=== PATIENT | male | born 1960 | race Caucasian/White ===

== ENCOUNTER 2017-11-15 11:36 | Emergency (ER) | payer MEDICARE, OTHER, SELFPAY ==
[2017-11-15 11:43] VITALS: BP 128/74; PULSE 88; RESP 14; TEMP 36.8; O2SAT 96; BMI 39.5
--- NOTE | 2017-11-15 11:57 | PC.NURSE ---
Patient has injury to right second toe. Does not have any feeling. States he has his feet checked everyday and today is the first time he has seen this injury. Tip of toe is blackened with eschar and unstageable pressure sore. There is dog hair in the wound. Pt states he has no feeling in his right foot due to diabetic neuropathy.
--- NOTE | 2017-11-15 12:02 | ED.EXTPRO ---
HPI - Extremity Problem <ANI Pickard - Last Filed: 11/15/17 22:17> General Chief complaint: Extremity Problem,Nontraumatic Stated complaint: RT FOOT PROBLEMS Time Seen by Provider: 11/15/17 12:03 Source: patient Mode of arrival: ambulatory Limitations: no limitations History of Present Illness HPI Narrative: 57-year-old male with history of type 2 diabetes with peripheral neuropathy who is nonsmoker here for complaint of having discoloration to his distal right middle toe that he noticed today. He denies any known trauma to the middle toe. He says that he noticed that the darkness was there this morning. He denies any fevers or chills. No drainage from the area. He denies any pain to the area. 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 No other concerns or complaint Related Data Home Medications Medication Instructions Recorded Confirmed aspirin 81 mg PO QDAY #0 03/15/17 11/15/17 atorvastatin [Lipitor] 80 mg PO HS #0 03/15/17 11/15/17 insulin asp prt-insulin aspart 45 units SQ TIDCC #0 03/15/17 11/15/17 [Novolog Mix 70-30FlexPen U-100] insulin glargine [Lantus U-100 70 unit SQ HS #0 03/15/17 11/15/17 Insulin] omega 9-imv-fcg-fish oil [Fish Oil] 1,000 mg PO TID #0 03/15/17 11/15/17 pregabalin [Lyrica] 225 mg PO BID #0 03/15/17 11/15/17 escitalopram oxalate 20 mg PO DAILY 11/15/17 11/15/17 liraglutide [Victoza 2-Raman] 1.8 mg SUBCUT BEDTIME 11/15/17 11/15/17 Allergies Allergy/AdvReac Type Severity Reaction Status Date / Time meperidine [MEPERIDINE] Allergy Severe SHORTNESS Verified 11/15/17 11:46 OF BREATH hydroxyzine [HYDROXYZINE] Allergy Mild RASH Verified 11/15/17 11:46 Review of Systems <ANI Pickard - Last Filed: 11/15/17 22:17> Constitutional Denies chills, Denies fever(s), Denies lethargy and Denies weakness Eyes Denies change in vision, Denies eye discharge, Denies irritation and Denies loss of vision ENT Ears, Nose, Mouth, and Throat: Denies change in voice, Denies neck pain and Denies sore throat Cardiovascular Denies chest pain, Denies irregular heart rhythm, Denies lightheadedness, Denies palpitations, Denies dyspnea, Denies dyspnea on exertion and Denies orthopnea Respiratory Denies cough, Denies dyspnea, Denies dyspnea on exertion and Denies wheezing Gastrointestinal Gastrointestinal: Denies abdominal pain, Denies change in bowel habits, Denies diarrhea, Denies nausea and Denies vomiting Genitourinary Denies hematuria, Denies flank pain, Denies urinary incontinence and Denies urinary urgency Musculoskeletal Denies neck pain Comments: Dark coloration to distal right middle toe Integumentary/Breasts Denies pruritus, Denies erythema, Denies rash and Denies wounds Neurologic Denies confusion, Denies loss of vision and Denies weakness Psychiatric Denies anxiety, Denies confusion, Denies depression, Denies homicidal ideation and Denies suicidal ideation Endocrine Denies palpitations Hematologic/Lymphatic Denies easy bruising Allergic/Immunologic Denies wheezing Exam <ANI Pickard - Last Filed: 11/15/17 22:17> Initial Vital Signs Initial Vital Signs: Vital Signs Temperature 98.2 F 11/15/17 11:43 Pulse Rate 88 11/15/17 11:43 Respiratory Rate 14 11/15/17 11:43 Blood Pressure 128/74 11/15/17 11:43 Pulse Oximetry 96 11/15/17 11:43 Const General: cooperative and well developed Nutritional Appearance: well nourished Orientation: alert, awake, oriented x3 and not confused [facility] Mouth: oral mucosae normal and moist mucous membranes Eyes Conjunctivae: conjunctivae normal Sclera: sclerae normal Pupils: PERRL EOM: EOM intact bilaterally Resp Effort & Inspection: normal respiratory effort, able to speak in complete sentences, no respiratory distress and no use of accessory muscles Auscultation: clear to auscultation bilaterally, no rales, no rhonchi and no wheezes Cardio Rate: regular rate Rhythm: regular rhythm Heart Sounds: no click, no gallops, no murmurs and no rubs Pulses: normal peripheral pulses Skin General: no rashes or lesions noted, No jaundice and No petechiae Neuro General: alert, awake, oriented x3 and no focal motor deficits Speech: speech normal Extrem Other: Distal right middle toe with area of a dark purple coloration approximately 1.5 cm distal sensation is not intact not new finding. Distal pulses are intact. Distal range of motion is intact. <Cass Yepez DO - Last Filed: 11/21/17 19:57> Initial Vital Signs Initial Vital Signs: Vital Signs Temperature 98.2 F 11/15/17 11:43 Pulse Rate 88 11/15/17 11:43 Respiratory Rate 14 11/15/17 11:43 Blood Pressure 128/74 11/15/17 11:43 Pulse Oximetry 96 11/15/17 11:43 Course <ANI Pickard - Last Filed: 11/15/17 22:17> Vital Signs - 8 hr 11/15/17 11:43 Temperature 98.2 F Pulse Rate 88 Respiratory Rate 14 Blood Pressure 128/74 Pulse Oximetry 96 <Cass Yepez DO - Last Filed: 11/21/17 19:57> Vital Signs - 8 hr 11/15/17 11:43 Temperature 98.2 F Pulse Rate 88 Respiratory Rate 14 Blood Pressure 128/74 Pulse Oximetry 96 MDM - Extremity (Nontraumatic) <ANI Pickard - Last Filed: 11/15/17 22:17> MDM Narrative Medical decision making narrative: Dark purple discoloration to the distal right middle toe differential between ecchymosis secondary to unknown trauma or starting eschar with no surrounding erythema. Discussed case with wound care who recommends close follow-up. Wound dressed with bacitracin and a dressing. Patient to follow up with Podiatry on Saturday or wound care for further evaluation. Patient instructed to keep wound area clean and dry not exposing toe to bath or shower water. For any worsening symptoms return to the emergency room. Wound care recommend not starting systemic antibiotics at this time. Vital signs are normal. Patient no acute distress. Discharge Plan Departure Patient Disposition: Home Clinical Impression: Traumatic ecchymosis of toe of right foot Discharge Date/Time: 11/15/17 12:38 Interventions: ED Discharge Assessment Last Done: 11/15/17 12:37 Instructions: DI for Diabetic Neuropathy Activity Restrictions/Additional Instructions: Differential of diagnosis between bruising to the right middle toe and starting eschar. Wound is dressed with a dressing and bacitracin keep wound area clean and dry. Follow up with wound care or Podiatry on Saturday for further evaluation. Do not expose toe to a bath water or shower water. For any worsening symptoms return to the emergency room. Call Podiatry or wound Care to set up appointment on Saturday. Prescriptions: No Action atorvastatin [Lipitor] 80 MG tablet 80 mg PO HS Qty: 0 RF: 0 pregabalin [Lyrica] 225 MG capsule 225 mg PO BID Qty: 0 RF: 0 aspirin 81 MG tablet,delayed release (DR/EC) 81 mg PO QDAY Qty: 0 RF: 0 omega 7-pal-lxk-fish oil [Fish Oil] 1,000 MG capsule 1,000 mg PO TID Qty: 0 RF: 0 insulin glargine [Lantus U-100 Insulin] 100 UNIT/1 ML solution 70 unit SQ HS Qty: 0 RF: 0 insulin asp prt-insulin aspart [Novolog Mix 70-30FlexPen U-100] 100 UNIT/1 ML insulin pen 45 units SQ TIDCC Qty: 0 RF: 0 escitalopram oxalate 20 mg tablet 20 mg PO DAILY RF: 0 liraglutide [Victoza 2-Raman] 0.6 mg/0.1 mL (18 mg/3 mL) Pen Injector 1.8 mg SUBCUT BEDTIME RF: 0 Referrals: Dangelo Pond MD [Physician] - Provider,Conversion [Non-Staff] - <Cass Yepez DO - Last Filed: 11/21/17 19:57> Cosign ED Attending Cosignature Attestation: I was immediately available in the department for consultation. Documentation has been reviewed. I agree with assessment and plan. Patient does say that he checks his feet daily yesterday this was not present. The wound care has been consulted. It does not appear infectious at this time
== END 2017-11-15 12:38 | disposition home or self-care (01) ==
PROVIDERS: Emergency Provider Nurse Practitioner Family; Family Provider Podiatrist
DX: S90.31XA Contusion of right foot, initial encounter (principal)
CPT/HCPCS: 99282; 99283

== ENCOUNTER → 2017-11-18 13:18 | Outpatient (CLI) | payer MEDICARE, OTHER, SELFPAY ==
--- NOTE | 2017-11-18 | OV.WND_ITS ---
Progress Note Details Patient Name: Jamir Garcia Patient Number: [id number] PatientPatientDate: 11/18/2017 Clinician: Maura Brooks Clinician Cosigner: Mary Carmen Lance Physician / Artillery Specialist: Dangelo Pond SUBJECTIVE Chief Complaint This information was obtained from the patient Diabetic ulcer on right second toe. Allergies Demerol, Vistaril HPI This information was obtained from the patient 11/18/17. Seen by Dr. Pond. The patient returns to clinic with a new, right 2nd toe diabetic ulcer he first noted last Saturday when the callus overlying the distal toe turned 'black' and he presented to the ER. The toe was simply dressed at the time and he was not placed on antibiotics. He does not report pain or drainage from the site and has difficulty offloading the foot as he's wearing a walking cast on the left foot while he awaits surgery to 'fuse the bones'. His blood sugars are historically well controlled. 07/04/17. Seen by Dr. Pond. The patient does not report significant drainage associated with chronic left first toe diabetic ulcer to his last visit. 06/27/17. Seen by Dr. Pond. The patient was discharged from [facility] following a short stay due to chest pain and notes that the chronic left first toe diabetic ulcer may have been uncovered for the past couple of days. He does not report increased drainage from the site nor other acute issues at this time. 06/20/17. Seen by Dr. Pond. The patient does not report significant drainage associated with chronic left first toe diabetic ulcer to his last visit. 06/13/17. Seen by Dr. Pond. The patient does not report significant drainage associated with chronic left first toe diabetic ulcer to his last visit. He is also planning Kerasal to the jude-ulcer callus as recommended. 06/06/17. Seen by Dr. Pond. The patient does not report pain nor drainage associated with the chronic left first toe diabetic ulcers since his last visit. His wound culture grew a resistant coag negative staph species and is not currently on antibiotics. 05/30/17. Seen by ANI Singh. Patient reports ulcer to his left great toe x 2 months. He has been seen by Dr. Kapadia who has been helping to remove callous and advised him to apply Neosporin and keep the area covered. The patient reports a large amount of drainage from the ulcer. The patient reports significant diabetic neuropathy to bilateral lower extremities and states he has little to no sensation from the ankles down. He does wear diabetic shoes. He is on both long and short acting Insulin. Reports blood glucose levels of 120- 140s and last HA1C of 7.2. Also of note, he was recently hospitalized for pneumonia and subsequent pericarditis. He is currently on long-term antibiotics for the pericarditis but forgot his medication list at home and is unsure of the exact medication. Family History This information was obtained from the patient Cancer - Father, Diabetes - Father, Paternal Grandparents, Lung Disease - Father Social History This information was obtained from the patient Never smoker, Caffeine Use - 1 cup coffee, Children - 5, Lives in - Private, Marital Status - , Retired - [employer] Past Medical History This information was obtained from the patient Patient has a medical history of: Type II Diabetes Mellitus Pericarditis Pneumonia Surgical History This information was obtained from the patient Patient has a surgical history of: Appendectomy Bilat Total knee replacement Right ankle reconstruction Complaints and Symptoms This information was obtained from the patient Patient complains of: General Notes: I have reviewed and concur with the Review of Systems and Past Family Social History documents completed by the clinician, I have reviewed and concur with the Wound Assessment document completed by the clinician Co-Morbid Conditions: Diabetes Integumentary (Hair/Skin/Nails): Open Sore Neurological: Loss of Protective Sensation Prior Wound History: Drainage Patient denies complaints or symptoms related to: Constitutional Symptoms (General Health): Chills, Fever, Loss of Appetite Ear/Nose/Mouth/Throat: Hearing Loss / Aid Gastrointestinal (GI): Nausea / Vomiting Hematologic/Lymphatic: Bleeding / Clotting Disorders, Bleeding Tendency Prior Wound History: Bleeding, Erythema, Pain Psychiatric: Memory Loss Respiratory: Shortness of Breath General Notes: Up to date. Medications atorvastatin 80 mg tablet oral 1 1 tablet oral once daily OBJECTIVE Constitutional Vital signs reviewed and noted. Well developed. Alert. Clean appearing.. Height/ Length: 74 in (187.96 cm), Weight: 317 lbs (144.09 kgs), BMI: 40.7, Temperature: 98.0 ?F ( 36.67 ?C), Pulse: 77 bpm, Respiratory Rate: 18 breaths/min, Blood Pressure: 127/80 mmHg, Capillary Blood Glucose: 152 mg/dl, Pulse Oximetry: 95 %. Vital Signs Notes: Glucose per patient. Ears, Nose, Mouth, and Throat: No clinically significant hearing loss on informal examination. Respiratory: No respiratory distress. Even respirations and without use of accessory muscles.. Gastrointestinal (GI): Obese. Nondistended.. Musculoskeletal: Significant plantar flexion of right 2nd toe. Integumentary (Hair, Skin) No periwound erythema, warmth, or significant drainage. No periwound rashes appreciated or noted otherwise.. Refer to appropriate clinician wound documentation for this visit; right 2nd toe ulcer extends to subcut with base partially covered with pink granulation, remainder fibrin and slough. Significant amount of callus in the periulcer area. Wound #2 Second Toe is an acute Becerril Grade 1 Diabetic Ulcer and has received a status of Not Healed. Initial wound encounter measurements are 1.8cm length x 1.8cm width with no measurable depth, with an area of 3.24 sq cm . No tunneling has been noted. No sinus tract has been noted. No undermining has been noted. There is a moderate amount of sanguineous drainage noted which has a mild odor. The patient reports no wound pain due to the wound being insensate. The wound margin is attached. Wound bed has No epithelialization, Yes eschar, No slough, No granulation. The periwound skin moisture is normal. The periwound skin color is normal. The periwound skin exhibited: Edema. The periwound skin did not exhibit: Brawny Induration, Excoriation, Induration, Callus, Crepitus, Fluctuance, Friable, Rash. The temperature of the periwound skin is WNL. Periwound skin presents with s/s of infection. Confirmation Description and Treatment Plan is: Signs and Symptoms Present, CandS Pending. Local Pulse is Palpable. Neurological: Cranial nerves grossly intact with symmetric function normal by informal observation.. ASSESSMENT Active Problems ICD-10 (Encounter Diagnosis) E11.621 - Type 2 diabetes mellitus with foot ulcer (Encounter Diagnosis) L97.512 - Non-pressure chronic ulcer of other part of right foot with fat layer exposed (Encounter Diagnosis) M20.61 - Acquired deformities of toe(s), unspecified, right foot (Encounter Diagnosis) L08.9 - Local infection of the skin and subcutaneous tissue, unspecified PROCEDURES Wound #2 Wound #2 (Diabetic Ulcer) is located on the second toe. A skin/subcutaneous tissue level surgical debridement with a total area debrided of 0.06 sq cm was performed by Dangelo Pond MD. Subcutaneous was removed along with devitalized tissue: callus and exudate. The following instrument(s) were used: curette, forceps, and scissors. No anesthetic was required due to loss of sensation. A time out was conducted prior to the start of the procedure. A moderate amount of bleeding was controlled with silver nitrate. The procedure was tolerated well with a loss of sensation throughout and a loss of sensation following the procedure. Post Debridement Measurements: 0.2cm length x 0.3cm width x 0.2cm depth; with an area of 0.06 sq cm and a volume of 0.012 cubic cm; Additional Information Muscle fascia or bone removed and sent to pathology?: No PLAN Wound Orders: Wound #2 Second Toe Cleanser Cleanse Wound: - Normal saline and gauze, may use distilled water at home. May Shower. - Protect in shower with cast protector or plastic bag. Topical Treatments Antibiotic/Antimicrobial Ointment/Cream. - Gentamicin ointment. Dressings Cover and secure with: - Foam, secured with hypafix tape. Change Dressing: - Every other day. Additional Orders: Off-Loading Keep weight off: - Right 2nd toe as much as possible. Toe lift made from guajardo's wool and foam. Follow-Up Appointments Return Appointment: - - One week. Other information: If you develop fever, chills, increased pain, drainage, redness or swelling please call our office. If after hours, respond to the ER. Should you experience any significant changes in your wound(s) or have any questions regarding your home care instructions please contact the wound center @ [phone]. If after hours, contact your primary care physician or go to the hospital emergency room. Scribing Attestation I attest, as the nurse, that I scribed these orders for the physician. Laboratory: Culture Wound General Notes: Will call with culture results if any oral antibiotics are required. I've reviewed the clinician's documentation and agree with the evaluation and plan as written. In addition, the patient's ulcer demonstrates evidence of non-viable devitalized tissue which will continue to benefit from sharp debridement to help promote granulation and expedite healing. Also, I've cultured the ulcer and started treating for a superficial infection with topical gentamicin. He's also scheduled for corrective surgery of the toe in December to address the severe plantarflexion deformity. Electronic Signature(s) Signed By: Date: Dangelo Pond MD 11/18/2017 17:46:20 Entered By: Dangelo Pond on 11/18/2017 17:36:09
== END ==
PROVIDERS: Family Provider Podiatrist; PCP Nurse Practitioner Family; Visit Provider Internal Medicine
DX: E11.621 Type 2 diabetes mellitus with foot ulcer (principal); L97.512 Non-pressure chronic ulcer of other part of right foot with fat layer exposed; M20.61 Acquired deformities of toe(s), unspecified, right foot; L08.9 Local infection of the skin and subcutaneous tissue, unspecified
CPT/HCPCS: 11042; 87070; 87077; 87147; 87186; 87205

== ENCOUNTER → 2017-11-26 13:03 | Outpatient (CLI) | payer MEDICARE, OTHER, SELFPAY ==
--- NOTE | 2017-11-26 | OV.WND_ITS ---
Progress Note Details Patient Name: Jamir Garcia Patient Number: [id number] PatientPatientDate: 11/26/2017 Clinician: Maura Brooks Clinician Cosigner: Mary Carmen Lance Physician / Aerophysicist: Dangelo Pond SUBJECTIVE Chief Complaint This information was obtained from the patient Diabetic ulcer on right second toe. Allergies Demerol, Vistaril HPI This information was obtained from the patient 11/26/17.Seen by Dr. Pond. The patient does not report significant drainage associated with chronic right 2nd toe diabetic ulcer to his last visit. 11/18/17. Seen by Dr. Pond. The patient returns to clinic with a new, right 2nd toe diabetic ulcer he first noted last Saturday when the callus overlying the distal toe turned 'black' and he presented to the ER. The toe was simply dressed at the time and he was not placed on antibiotics. He does not report pain or drainage from the site and has difficulty offloading the foot as he's wearing a walking cast on the left foot while he awaits surgery to 'fuse the bones'. His blood sugars are historically well controlled. 07/04/17. Seen by Dr. Pond. The patient does not report significant drainage associated with chronic left first toe diabetic ulcer to his last visit. 06/27/17. Seen by Dr. Pond. The patient was discharged from [facility] following a short stay due to chest pain and notes that the chronic left first toe diabetic ulcer may have been uncovered for the past couple of days. He does not report increased drainage from the site nor other acute issues at this time. 06/20/17. Seen by Dr. Pond. The patient does not report significant drainage associated with chronic left first toe diabetic ulcer to his last visit. 06/13/17. Seen by Dr. Pond. The patient does not report significant drainage associated with chronic left first toe diabetic ulcer to his last visit. He is also planning Kerasal to the jude-ulcer callus as recommended. 06/06/17. Seen by Dr. Pond. The patient does not report pain nor drainage associated with the chronic left first toe diabetic ulcers since his last visit. His wound culture grew a resistant coag negative staph species and is not currently on antibiotics. 05/30/17. Seen by ANI Singh. Patient reports ulcer to his left great toe x 2 months. He has been seen by Dr. Kapadia who has been helping to remove callous and advised him to apply Neosporin and keep the area covered. The patient reports a large amount of drainage from the ulcer. The patient reports significant diabetic neuropathy to bilateral lower extremities and states he has little to no sensation from the ankles down. He does wear diabetic shoes. He is on both long and short acting Insulin. Reports blood glucose levels of 120- 140s and last HA1C of 7.2. Also of note, he was recently hospitalized for pneumonia and subsequent pericarditis. He is currently on long-term antibiotics for the pericarditis but forgot his medication list at home and is unsure of the exact medication. Past Medical History This information was obtained from the patient Patient has a medical history of: Type II Diabetes Mellitus Pericarditis Pneumonia Complaints and Symptoms This information was obtained from the patient Patient complains of: General Notes: I have reviewed and concur with the Review of Systems and Past Family Social History documents completed by the clinician, I have reviewed and concur with the Wound Assessment document completed by the clinician Co-Morbid Conditions: Diabetes Integumentary (Hair/Skin/Nails): Open Sore Neurological: Loss of Protective Sensation Prior Wound History: Drainage Patient denies complaints or symptoms related to: Constitutional Symptoms (General Health): Chills, Fever, Loss of Appetite Ear/Nose/Mouth/Throat: Hearing Loss / Aid Gastrointestinal (GI): Nausea / Vomiting Hematologic/Lymphatic: Bleeding / Clotting Disorders, Bleeding Tendency Prior Wound History: Bleeding, Erythema, Pain Psychiatric: Memory Loss Respiratory: Shortness of Breath OBJECTIVE Constitutional BP normal; Low grade fever; Alert and in no distress. Well developed. Alert. Clean appearing.. Height/Length: 74 in (187.96 cm), Weight: 317 lbs (144.09 kgs), BMI: 40.7, Temperature: 99.1 ?F (37.28 ?C), Pulse: 97 bpm, Respiratory Rate: 16 breaths/min, Blood Pressure: 128/80 mmHg, Capillary Blood Glucose: 140 mg/dl, Pulse Oximetry: 95 %. Vital Signs Notes: Glucose per patient. Ears, Nose, Mouth, and Throat: No clinically significant hearing loss on informal examination. Gastrointestinal (GI): Obese. Nondistended.. Integumentary (Hair, Skin) No periwound erythema, warmth, or significant drainage. No periwound rashes appreciated or noted otherwise.. Refer to appropriate clinician wound documentation for this visit; right foot ulcer extends to subcut with base partially covered with dry, red granulation, remainder fibrin and slough. Moderate amount of callus in the periulcer area. Wound #2 Second Toe is an acute Becerril Grade 1 Diabetic Ulcer and has received a status of Not Healed. Subsequent wound encounter measurements are 0.2cm length x 0.2cm width x 0.1cm depth, with an area of 0.04 sq cm and a volume of 0.004 cubic cm. No tunneling has been noted. No sinus tract has been noted. No undermining has been noted. There is a scant amount of serosanguineous drainage noted which has no odor. The patient reports no wound pain due to the wound being insensate. The wound margin is attached. Wound bed has No epithelialization, Yes eschar, No slough, Yes bright red, firm granulation. The periwound skin moisture is normal. The periwound skin color is normal. The periwound skin exhibited: Edema. The periwound skin did not exhibit: Brawny Induration, Excoriation, Induration, Callus, Crepitus, Fluctuance, Friable, Rash. The temperature of the periwound skin is WNL. Periwound skin does not exhibit signs or symptoms of infection. Local Pulse is Palpable. Neurological: Cranial nerves grossly intact with symmetric function normal by informal observation.. ASSESSMENT Active Problems ICD-10 (Encounter Diagnosis) E11.621 - Type 2 diabetes mellitus with foot ulcer (Encounter Diagnosis) L97.512 - Non-pressure chronic ulcer of other part of right foot with fat layer exposed PROCEDURES Wound #2 Wound #2 (Diabetic Ulcer) is located on the second toe. A skin/subcutaneous tissue level surgical debridement with a total area debrided of 0.04 sq cm was performed by Dangelo Pond MD. Subcutaneous was removed along with devitalized tissue: exudate and slough. The following instrument(s) were used: curette. No anesthetic was required due to loss of sensation. A time out was conducted prior to the start of the procedure. A moderate amount of bleeding was controlled with silver nitrate. The procedure was tolerated well with a loss of sensation throughout and a loss of sensation following the procedure. Post Debridement Measurements: 0.2cm length x 0.2cm width x 0.2cm depth; with an area of 0.04 sq cm and a volume of 0.008 cubic cm; Additional Information Muscle fascia or bone removed and sent to pathology?: No PLAN Wound Orders: Wound #2 Second Toe Cleanser Cleanse Wound: - Normal saline and gauze, may use distilled water at home. May Shower. - Protect in shower with cast protector or plastic bag. Topical Treatments Enzymatic Debriding Agent. - Hydrogel to wound base. Dressings Cover and secure with: - Telfa pad, secured with hypafix tape. May use bandaid at home. Change Dressing: - Every other day. Additional Orders: Off-Loading Keep weight off: - Right 2nd toe as much as possible. Toe lift made from guajardo's wool and foam. Follow-Up Appointments Return Appointment: - - One week. Other information: If you develop fever, chills, increased pain, drainage, redness or swelling please call our office. If after hours, respond to the ER. Should you experience any significant changes in your wound(s) or have any questions regarding your home care instructions please contact the wound center @ [phone]. If after hours, contact your primary care physician or go to the hospital emergency room. Scribing Attestation I attest, as the nurse, that I scribed these orders for the physician. General Notes: Please follow up with your manager division for basic foot/nail care. I've reviewed the clinician's documentation and agree with the evaluation and plan as written. In addition, the patient's ulcer demonstrates evidence of non-viable devitalized tissue which will continue to benefit from sharp debridement to help promote granulation and expedite healing. Electronic Signature(s) Signed By: Date: Dangelo Pond MD 11/27/2017 13:52:56 Entered By: Dangelo Pond on 11/27/2017 12:30:11
== END ==
PROVIDERS: Family Provider Podiatrist; PCP Nurse Practitioner Family; Visit Provider Internal Medicine
DX: E11.621 Type 2 diabetes mellitus with foot ulcer (principal); L97.512 Non-pressure chronic ulcer of other part of right foot with fat layer exposed
CPT/HCPCS: 11042

== ENCOUNTER 2018-04-18 03:11 | Emergency (ER) | payer MEDICARE, OTHER, SELFPAY ==
[2018-04-18 03:16] VITALS: BP 139/75; PULSE 104; RESP 20; TEMP 37.5; O2SAT 98; BMI 43.4
--- NOTE | 2018-04-18 03:19 | DI.RAD.S_ITS ---
PROCEDURE: XR KNEE RT 3V INDICATIONS: knee locked up, no trauma TECHNIQUE: 3 views of the knee were acquired. COMPARISON: None. FINDINGS: Bones: Status post right knee arthroplasty. No fractures or dislocations. No suspicious bony lesions. Soft tissues: No joint effusion. No suspicious soft tissue calcifications. IMPRESSION: No fracture. No acute osseous lesion. Status post right knee arthroplasty. Dictated by: Kate Fletcher MD, PhD on 04/18/2018 at 8:44 Approved by: Kate Fletcher MD, PhD on 04/18/2018 at 8:45
[2018-04-18] MEDS: diazePAM 10 MG/2 ML SYRINGE 5 MG IV (04:25)
[2018-04-18] MEDS: HYDROMORPHONE 1 MG INJ IV (04:25)
[2018-04-18 04:39] VITALS: BP 104/61; PULSE 100; RESP 17; O2SAT 94
--- NOTE | 2018-04-18 05:02 | ED_ITS ---
HPI - Extremity Problem General Chief complaint: Extremity Problem,Nontraumatic Stated complaint: R Knee Pain Time Seen by Provider: 04/18/18 03:43 Source: patient, EMS and old records reviewed Mode of arrival: EMS Limitations: no limitations History of Present Illness HPI Narrative: Patient is a 57-year-old male who presents with right knee spasm and locked knee. He has bilateral total knee arthroplasties. He occasionally gets his knees locked. He has previously been to [facility] few times for this. He is requesting anesthesia and Orthopedics immediately. he says this evening he went to let the dog out when it suddenly spasmed up. He did not fall on it. He was able to get himself lowered. MD Complaint: extremity pain Location: right and lower extremity Quality: other (spasm) Related Data Home Medications Medication Instructions Recorded Confirmed aspirin 81 mg PO QDAY #0 03/15/17 11/15/17 atorvastatin [Lipitor] 80 mg PO HS #0 03/15/17 11/15/17 insulin asp prt-insulin aspart 45 units SQ TIDCC #0 03/15/17 11/15/17 [Novolog Mix 70-30FlexPen U-100] insulin glargine [Lantus U-100 70 unit SQ HS #0 03/15/17 11/15/17 Insulin] omega 8-mkp-fks-fish oil [Fish Oil] 1,000 mg PO TID #0 03/15/17 11/15/17 pregabalin [Lyrica] 225 mg PO BID #0 03/15/17 11/15/17 escitalopram oxalate 20 mg PO DAILY 11/15/17 11/15/17 liraglutide [Victoza 2-Raman] 1.8 mg SUBCUT BEDTIME 11/15/17 11/15/17 Allergies Allergy/AdvReac Type Severity Reaction Status Date / Time meperidine [MEPERIDINE] Allergy Severe SHORTNESS Verified 11/15/17 11:46 OF BREATH hydroxyzine [HYDROXYZINE] Allergy Mild RASH Verified 11/15/17 11:46 Review of Systems Review of Systems ROS Unobtainable: All systems reviewed & are unremarkable except as noted in HPI and below Constitutional Denies chills, Denies fever(s), Denies lethargy and Denies weakness Cardiovascular Denies chest pain, Denies irregular heart rhythm, Denies lightheadedness, Denies palpitations, Denies dyspnea, Denies dyspnea on exertion and Denies orthopnea Respiratory Denies cough, Denies dyspnea, Denies dyspnea on exertion and Denies wheezing Gastrointestinal Gastrointestinal: Denies abdominal pain, Denies change in bowel habits, Denies diarrhea, Denies nausea and Denies vomiting Musculoskeletal Reports as per HPI Integumentary/Breasts Denies pruritus, Denies erythema, Denies rash and Denies wounds Neurologic Denies weakness Endocrine Denies palpitations Allergic/Immunologic Denies wheezing [facility] Medical History Coronary artery disease (Acute) Diabetes (Acute) Peripheral neuropathy (Acute) Surgical History History of total knee arthroplasty (Acute) Social History Smoking Status: Never smoker Social History Smoking Status: Never smoker Exam Initial Vital Signs Initial Vital Signs: Vital Signs Temperature 99.5 F 04/18/18 03:16 Pulse Rate 104 H 04/18/18 03:16 Respiratory Rate 20 04/18/18 03:16 Blood Pressure 139/75 04/18/18 03:16 Pulse Oximetry 98 04/18/18 03:16 GENERAL: overweight male appears in HEENT: Head atraumatic,EOMI, pupils reactive, CARDIOVASCULAR: peripheral pulses intact RESPIRATORY: speaks in full sentences EXTREMITIES: Normal range of motion, no clubbing or edema. Neurovascularly intact right lower extremity knee is bent. He is unable to straighten on his own. Distal pedal pulse intact able to move toes pelvis is stable. NEUROLOGICAL: Alert and oriented x4. SKIN: Warm, dry, no laceration, no petechiae, no rashes or lesions. Course Orders Ordered: ED Orders 04/18/18 03:19 XR knee RT 3V Stat Discontinued Medications Diazepam (Valium) 5 mg IV NOW ONE Stop: 04/18/18 04:04 Last Admin: 04/18/18 04:25 Dose: 5 mg Hydromorphone HCl (Dilaudid) 1 mg IV NOW ONE Stop: 04/18/18 04:04 Last Admin: 04/18/18 04:25 Dose: 1 mg Vital Signs - 8 hr 04/18/18 03:16 04/18/18 04:39 Temperature 99.5 F Pulse Rate 104 H 100 H Respiratory Rate 20 17 Blood Pressure 139/75 Blood Pressure [Left Arm] 104/61 Pulse Oximetry 98 94 MDM - Extremity (Nontraumatic) Imaging Data right knee XR: Attestation: I personally reviewed and interpreted this imaging study as follows: My impression: post surgical changes. no fracture MDM Narrative Medical decision making narrative: Patient is given small amount of pain medication Dilaudid and Valium. I easily straightened his leg with very little traction or force. Knee immobilizer placed by nursing. Discharge Plan Departure Patient Disposition: Home Clinical Impression: Locking of right knee Instructions: DI for Knee Pain Activity Restrictions/Additional Instructions: *You have been diagnosed with locked knee *What to do: may require physical therapy. Where knee brace for the next 1-2 days to help prevent locking. *Continue to take medications as directed [ *Follow up with your primary care provider in 2-3 days *Return to ER if you should have any new, worsening or concerning symptoms Prescriptions: No Action atorvastatin [Lipitor] 80 MG tablet 80 mg PO HS Qty: 0 RF: 0 pregabalin [Lyrica] 225 MG capsule 225 mg PO BID Qty: 0 RF: 0 aspirin 81 MG tablet,delayed release (DR/EC) 81 mg PO QDAY Qty: 0 RF: 0 omega 6-ilz-xet-fish oil [Fish Oil] 1,000 MG capsule 1,000 mg PO TID Qty: 0 RF: 0 insulin glargine [Lantus U-100 Insulin] 100 UNIT/1 ML solution 70 unit SQ HS Qty: 0 RF: 0 insulin asp prt-insulin aspart [Novolog Mix 70-30FlexPen U-100] 100 UNIT/1 ML insulin pen 45 units SQ TIDCC Qty: 0 RF: 0 escitalopram oxalate 20 mg tablet 20 mg PO DAILY RF: 0 liraglutide [Victoza 2-Raman] 0.6 mg/0.1 mL (18 mg/3 mL) Pen Injector 1.8 mg SUBCUT BEDTIME RF: 0 Referrals: [facility] [Provider Group] Rey Kapadia, PATRICIA [Family Provider] -
== END 2018-04-18 04:55 | disposition home or self-care (01) ==
PROVIDERS: Emergency Provider Emergency Medicine; Family Provider Podiatrist; PCP Nurse Practitioner Family
DX: M23.91 Unspecified internal derangement of right knee (principal)
CPT/HCPCS: 73562; 96374; 96375; 99283; 99284; J1170; J3360

== ENCOUNTER → 2018-04-23 08:49 | Outpatient (CLI) | payer MEDICARE, OTHER, SELFPAY | PROVIDERS: Family Provider Podiatrist; PCP Nurse Practitioner Family; Referring Provider Podiatrist; Visit Provider Family Medicine | DX: E11.621 Type 2 diabetes mellitus with foot ulcer (principal); L08.9 Local infection of the skin and subcutaneous tissue, unspecified; L97.521 Non-pressure chronic ulcer of other part of left foot limited to breakdown of skin | CPT/HCPCS: 87070; 87075; 87077; 87147; 87186; 87205; 93922; 97597; 99213 ==

== ENCOUNTER 2018-04-24 18:51 | Emergency (ER) | payer MEDICARE, OTHER, SELFPAY ==
[2018-04-24] VITALS (16 sets, daily range): BP systolic 104–185; BP diastolic 64–97; PULSE 95–114; RESP 12–20; TEMP 38–38.1; O2SAT 92–98; BMI 40.1
--- NOTE | 2018-04-24 19:32 | PC.NURSE ---
Pt states he always comes in and get IV pain meds then is able to relax his knee. aware of request for pain meds. no new orders at this time. Patient declines ice, and repositioning at this time. states if we attempt to touch it without meds he will hurt us.
--- NOTE | 2018-04-24 19:41 | ED.EXTPRO ---
HPI - Extremity Problem General Chief complaint: Extremity Problem,Nontraumatic Stated complaint: L knee unable to bend Time Seen by Provider: 04/24/18 19:25 Source: patient Mode of arrival: EMS Limitations: no limitations History of Present Illness HPI Narrative: This is a 57-year-old male who comes to the emergency department with complaint of left knee being locked. Patient states this happens intermittently. He states that he has had to have them reduced in the past. Patient states he typically has gone would be but has been here as well. Patient states last time they gave him some medications to the IV on it worked quite well. He states he just stepped weird lives taking the dog out today. He states that he had knee replacement with tendon repairs in past so they disorder get stuck. Patient does have a walking boot on the left foot which he states is from a metatarsal repair. He states this was in December and he has graduated from cast to a boot. He is denying any other injuries. Related Data Home Medications Medication Instructions Recorded Confirmed aspirin 81 mg PO QDAY #0 03/15/17 11/15/17 atorvastatin [Lipitor] 80 mg PO HS #0 03/15/17 11/15/17 insulin asp prt-insulin aspart 45 units SQ TIDCC #0 03/15/17 11/15/17 [Novolog Mix 70-30FlexPen U-100] insulin glargine [Lantus U-100 70 unit SQ HS #0 03/15/17 11/15/17 Insulin] omega 4-czd-emq-fish oil [Fish Oil] 1,000 mg PO TID #0 03/15/17 11/15/17 pregabalin [Lyrica] 225 mg PO BID #0 03/15/17 11/15/17 escitalopram oxalate 20 mg PO DAILY 11/15/17 11/15/17 liraglutide [Victoza 2-Raman] 1.8 mg SUBCUT BEDTIME 11/15/17 11/15/17 Allergies Allergy/AdvReac Type Severity Reaction Status Date / Time meperidine [MEPERIDINE] Allergy Severe SHORTNESS Verified 11/15/17 11:46 OF BREATH hydroxyzine [HYDROXYZINE] Allergy Mild RASH Verified 11/15/17 11:46 Review of Systems Review of Systems ROS Unobtainable: All systems reviewed & are unremarkable except as noted in HPI and below Constitutional Denies weakness Musculoskeletal Reports as per HPI, Reports arthralgias, Reports limited range of motion, Denies muscle weakness, Denies numbness and Denies tingling Integumentary/Breasts Denies rash Neurologic Denies numbness, Denies sensory deficit, Denies tingling, Denies paresthesias and Denies weakness ON LICENSE OF [facility] Medical History Coronary artery disease (Acute) Diabetes (Acute) Peripheral neuropathy (Acute) Surgical History History of total knee arthroplasty (Acute) Social History Smoking Status: Never smoker Social History Smoking Status: Never smoker Exam Narrative Exam Narrative: GENERAL: Alert and oriented x three, obese, well-appearing male in moderate distress. HEENT: Head normocephalic, atraumatic, EOMI, pupils reactive, face symmetric, moist mucous membranes NECK: Supple, full range of motion CARDIOVASCULAR: Regular rate and rhythm without murmurs, rubs or gallops. RESPIRATORY: Breath sounds equal bilaterally, no wheezes rales or rhonchi. ABDOMEN: Soft, nontender. Normoactive bowel sounds all 4 quadrants. No guarding or rebound, rigidity, no mass EXTREMITIES: Normal range of motion of right lower extremity the left lower extremity is held in flexion at the knee and is externally rotated. no clubbing or edema. Neurovascularly intact. cap refill less then 2 seconds. left foot is in walking boot. NEUROLOGICAL: Cranial nerves II through XII grossly intact. Moving all extremities SKIN: Warm, dry, no petechiae, no rashes or lesions. Initial Vital Signs Initial Vital Signs: Vital Signs Temperature 100.5 F H 04/24/18 19:00 Pulse Rate 101 H 04/24/18 19:00 Respiratory Rate 04/24/18 19:00 Blood Pressure 149/89 H 04/24/18 19:00 Pulse Oximetry 96 04/24/18 19:00 Procedures Procedural Sedation Patient Age: Patient is 5yrs or older Indication: fracture/dislocation reduction (knee locked) Mallampati Airway Classification: Class II Time of Last PO Intake: 12:00 (noon) Preparation: residential monitor applied, pulse oximeter, capnometry used, supplemental O2 applied, suction/airway equipment at bedside and IV secured Ketamine: IV Ketamine dose (mg): 150 ED Sedation Level: Moderate (Concious) Patient Tolerated Procedure: Well Complications: hypoventilation Interventions: Airway repositioned and Oxygen applied Additional Comments: Patient had traction applied to left knee with slow exaggeration. Patient lower extremity straightened and placed in knee immoblizer. Patient is much more comfortable at this time. Course Orders Ordered: ED Orders 04/24/18 19:41 XR knee LT 1to2V Stat Discontinued Medications Diazepam (Valium) 5 mg IV NOW ONE Stop: 04/24/18 19:42 Last Admin: 04/24/18 20:14 Dose: 5 mg Diazepam (Valium) 5 mg IV NOW ONE Stop: 04/24/18 20:47 Last Admin: 04/24/18 21:02 Dose: 5 mg Hydromorphone HCl (Dilaudid) 1 mg IV NOW ONE Stop: 04/24/18 19:42 Last Admin: 04/24/18 19:49 Dose: 1 mg Hydromorphone HCl (Dilaudid) 1 mg IV NOW ONE Stop: 04/24/18 20:26 Last Admin: 04/24/18 20:27 Dose: 1 mg Hydromorphone HCl (Dilaudid) 1 mg IV NOW ONE Stop: 04/24/18 20:47 Last Admin: 04/24/18 21:02 Dose: 1 mg Vital Signs - 8 hr 04/24/18 19:00 04/24/18 19:45 04/24/18 19:49 Temperature 100.5 F H 100.4 F H Pulse Rate 101 H 105 H Respiratory Rate 19 17 Blood Pressure 149/89 H Blood Pressure [Right Arm] 129/71 Pulse Oximetry 96 97 04/24/18 20:30 04/24/18 21:12 04/24/18 21:31 Temperature Pulse Rate 99 H 101 H 95 H Respiratory Rate 16 16 16 Blood Pressure Blood Pressure [Right Arm] 119/78 106/64 105/70 Pulse Oximetry 95 93 92 04/24/18 22:45 04/24/18 22:50 04/24/18 22:55 Temperature Pulse Rate 110 H 114 H 106 H Respiratory Rate 12 19 14 Blood Pressure Blood Pressure [Right Arm] 158/74 H 185/94 H 104/97 H Pulse Oximetry 92 97 97 04/24/18 22:57 04/24/18 23:00 04/24/18 23:05 Temperature Pulse Rate 112 H 103 H 102 H Respiratory Rate 20 15 14 Blood Pressure Blood Pressure [Right Arm] 158/87 H 145/82 H Pulse Oximetry 97 97 04/24/18 23:10 04/24/18 23:15 04/24/18 23:20 Temperature Pulse Rate 102 H 102 H 100 H Respiratory Rate 15 16 16 Blood Pressure Blood Pressure [Right Arm] 130/73 144/86 H 135/72 Pulse Oximetry 97 95 95 04/24/18 23:32 04/25/18 00:34 Temperature Pulse Rate 102 H 102 H Respiratory Rate 18 Blood Pressure Blood Pressure [Right Arm] 141/72 H 128/75 Pulse Oximetry 95 MDM - Extremity (Nontraumatic) Imaging Data knee xray: Radiologist's impression: [address] [address] XRay Report Signed Patient: Jamir Garcia KMR#: [id number] : 9Acct:[id number] Age/Sex: 57 / MDate of Service: 04/24/18 Loc: ED Accession Number: [id number] Procedure: XR knee LT 1to2V Ordering Provider: Annabel Crum D.O. PROCEDURE: XR KNEE LT 1TO2V INDICATIONS: left knee locking TECHNIQUE: 2 view(s) of the knee acquired. [facility], 04/18/2018, 3:26. FINDINGS: Patient is status post knee joint arthroplasty. Limited secondary to patient positioning. Only a crosstable lateral view with the knee in flexion and a sunrise view were acquired. Suggestion of a small joint effusion. No acute fracture. Patellar alignment appears grossly intact although evaluation limited secondary to positioning. Hardware components appear intact. No acute fractures visualized. IMPRESSION: Status post left total knee arthroplasty. Surgical hardware appears intact. Limited evaluation secondary to patient positioning with the left knee imaged in flexion. Additionally, only a crosstable lateral view and sunrise view were obtained. Suggestion of small joint effusion. No acute fracture visualized. Dictated by: Gabriel Moreland M.D. on 04/24/2018 at 21:45 Approved by: Gabriel Moreland M.D. on 04/24/2018 at 21:49 MDM Narrative Medical decision making narrative: Discussed with patient, if he had responded well to Valium and Dilaudid last time but was unsuccessful. Patient tolerated procedure well. Discharge Plan Departure Patient Disposition: Home Clinical Impression: Locking of right knee Instructions: How to Use a Knee Immobilizer Activity Restrictions/Additional Instructions: Follow up with your physician or orthopedic surgeon in the next 5-7 days. Continue to use knee brace/immobilizer for the next 3-5 days to prevent recurrence. Continue to take your home medications as prescribed. Return to the emergency department if you have any new or concerning symptoms, recurrence, new numbness, weakness or other changes. Prescriptions: No Action atorvastatin [Lipitor] 80 MG tablet 80 mg PO HS Qty: 0 RF: 0 pregabalin [Lyrica] 225 MG capsule 225 mg PO BID Qty: 0 RF: 0 aspirin 81 MG tablet,delayed release (DR/EC) 81 mg PO QDAY Qty: 0 RF: 0 omega 1-ttf-gbv-fish oil [Fish Oil] 1,000 MG capsule 1,000 mg PO TID Qty: 0 RF: 0 insulin glargine [Lantus U-100 Insulin] 100 UNIT/1 ML solution 70 unit SQ HS Qty: 0 RF: 0 insulin asp prt-insulin aspart [Novolog Mix 70-30FlexPen U-100] 100 UNIT/1 ML insulin pen 45 units SQ TIDCC Qty: 0 RF: 0 escitalopram oxalate 20 mg tablet 20 mg PO DAILY RF: 0 liraglutide [Victoza 2-Raman] 0.6 mg/0.1 mL (18 mg/3 mL) Pen Injector 1.8 mg SUBCUT BEDTIME RF: 0
--- NOTE | 2018-04-24 19:45 | ED_ITS ---
HPI - Extremity Problem General Chief complaint: Extremity Problem,Nontraumatic Stated complaint: L knee unable to bend Time Seen by Provider: 04/24/18 19:25 Source: patient Mode of arrival: EMS Limitations: no limitations History of Present Illness HPI Narrative: This is a 57-year-old male who comes to the emergency department with complaint of left knee being locked. Patient states this happens intermittently. He states that he has had to have them reduced in the past. Patient states he typically has gone would be but has been here as well. Patient states last time they gave him some medications to the IV on it worked quite well. He states he just stepped weird lives taking the dog out today. He states that he had knee replacement with tendon repairs in past so they disorder get stuck. Patient does have a walking boot on the left foot which he states is from a metatarsal repair. He states this was in December and he has graduated from cast to a boot. He is denying any other injuries. Related Data Home Medications Medication Instructions Recorded Confirmed aspirin 81 mg PO QDAY #0 03/15/17 11/15/17 atorvastatin [Lipitor] 80 mg PO HS #0 03/15/17 11/15/17 insulin asp prt-insulin aspart 45 units SQ TIDCC #0 03/15/17 11/15/17 [Novolog Mix 70-30FlexPen U-100] insulin glargine [Lantus U-100 70 unit SQ HS #0 03/15/17 11/15/17 Insulin] omega 6-ail-zxb-fish oil [Fish Oil] 1,000 mg PO TID #0 03/15/17 11/15/17 pregabalin [Lyrica] 225 mg PO BID #0 03/15/17 11/15/17 escitalopram oxalate 20 mg PO DAILY 11/15/17 11/15/17 liraglutide [Victoza 2-Raman] 1.8 mg SUBCUT BEDTIME 11/15/17 11/15/17 Allergies Allergy/AdvReac Type Severity Reaction Status Date / Time meperidine [MEPERIDINE] Allergy Severe SHORTNESS Verified 11/15/17 11:46 OF BREATH hydroxyzine [HYDROXYZINE] Allergy Mild RASH Verified 11/15/17 11:46 Review of Systems Review of Systems ROS Unobtainable: All systems reviewed & are unremarkable except as noted in HPI and below Constitutional Denies weakness Musculoskeletal Reports as per HPI, Reports arthralgias, Reports limited range of motion, Denies muscle weakness, Denies numbness and Denies tingling Integumentary/Breasts Denies rash Neurologic Denies numbness, Denies sensory deficit, Denies tingling, Denies paresthesias and Denies weakness [facility] Medical History Coronary artery disease (Acute) Diabetes (Acute) Peripheral neuropathy (Acute) Surgical History History of total knee arthroplasty (Acute) Social History Smoking Status: Never smoker Social History Smoking Status: Never smoker Exam Narrative Exam Narrative: GENERAL: Alert and oriented x three, obese, well-appearing male in moderate distress. HEENT: Head normocephalic, atraumatic, EOMI, pupils reactive, face symmetric, moist mucous membranes NECK: Supple, full range of motion CARDIOVASCULAR: Regular rate and rhythm without murmurs, rubs or gallops. RESPIRATORY: Breath sounds equal bilaterally, no wheezes rales or rhonchi. ABDOMEN: Soft, nontender. Normoactive bowel sounds all 4 quadrants. No guarding or rebound, rigidity, no mass EXTREMITIES: Normal range of motion of right lower extremity the left lower extremity is held in flexion at the knee and is externally rotated. no clubbing or edema. Neurovascularly intact. cap refill less then 2 seconds. left foot is in walking boot. NEUROLOGICAL: Cranial nerves II through XII grossly intact. Moving all extremities SKIN: Warm, dry, no petechiae, no rashes or lesions. Initial Vital Signs Initial Vital Signs: Vital Signs Temperature 100.5 F H 04/24/18 19:00 Pulse Rate 101 H 04/24/18 19:00 Respiratory Rate 04/24/18 19:00 Blood Pressure 149/89 H 04/24/18 19:00 Pulse Oximetry 96 04/24/18 19:00 Procedures Procedural Sedation Patient Age: Patient is 5yrs or older Indication: fracture/dislocation reduction (knee locked) Mallampati Airway Classification: Class II Time of Last PO Intake: 12:00 (noon) Preparation: cardiac care nurse applied, pulse oximeter, capnometry used, supplemental O2 applied, suction/airway equipment at bedside and IV secured Ketamine: IV Ketamine dose (mg): 150 ED Sedation Level: Moderate (Concious) Patient Tolerated Procedure: Well Complications: hypoventilation Interventions: Airway repositioned and Oxygen applied Additional Comments: Patient had traction applied to left knee with slow exaggeration. Patient lower extremity straightened and placed in knee immoblizer. Patient is much more comfortable at this time. Course Orders Ordered: ED Orders 04/24/18 19:41 XR knee LT 1to2V Stat Discontinued Medications Diazepam (Valium) 5 mg IV NOW ONE Stop: 04/24/18 19:42 Last Admin: 04/24/18 20:14 Dose: 5 mg Diazepam (Valium) 5 mg IV NOW ONE Stop: 04/24/18 20:47 Last Admin: 04/24/18 21:02 Dose: 5 mg Hydromorphone HCl (Dilaudid) 1 mg IV NOW ONE Stop: 04/24/18 19:42 Last Admin: 04/24/18 19:49 Dose: 1 mg Hydromorphone HCl (Dilaudid) 1 mg IV NOW ONE Stop: 04/24/18 20:26 Last Admin: 04/24/18 20:27 Dose: 1 mg Hydromorphone HCl (Dilaudid) 1 mg IV NOW ONE Stop: 04/24/18 20:47 Last Admin: 04/24/18 21:02 Dose: 1 mg Vital Signs - 8 hr 04/24/18 19:00 04/24/18 19:45 04/24/18 19:49 Temperature 100.5 F H 100.4 F H Pulse Rate 101 H 105 H Respiratory Rate 19 17 Blood Pressure 149/89 H Blood Pressure [Right Arm] 129/71 Pulse Oximetry 96 97 04/24/18 20:30 04/24/18 21:12 04/24/18 21:31 Temperature Pulse Rate 99 H 101 H 95 H Respiratory Rate 16 16 16 Blood Pressure Blood Pressure [Right Arm] 119/78 106/64 105/70 Pulse Oximetry 95 93 92 04/24/18 22:45 04/24/18 22:50 04/24/18 22:55 Temperature Pulse Rate 110 H 114 H 106 H Respiratory Rate 12 19 14 Blood Pressure Blood Pressure [Right Arm] 158/74 H 185/94 H 104/97 H Pulse Oximetry 92 97 97 04/24/18 22:57 04/24/18 23:00 04/24/18 23:05 Temperature Pulse Rate 112 H 103 H 102 H Respiratory Rate 20 15 14 Blood Pressure Blood Pressure [Right Arm] 158/87 H 145/82 H Pulse Oximetry 97 97 04/24/18 23:10 04/24/18 23:15 04/24/18 23:20 Temperature Pulse Rate 102 H 102 H 100 H Respiratory Rate 15 16 16 Blood Pressure Blood Pressure [Right Arm] 130/73 144/86 H 135/72 Pulse Oximetry 97 95 95 04/24/18 23:32 04/25/18 00:34 Temperature Pulse Rate 102 H 102 H Respiratory Rate 18 Blood Pressure Blood Pressure [Right Arm] 141/72 H 128/75 Pulse Oximetry 95 MDM - Extremity (Nontraumatic) Imaging Data knee xray: Radiologist's impression: [address] [address] XRay Report Signed Patient: Jamir Garcia KMR#: [id number] : 9Acct:[id number] Age/Sex: 57 / MDate of Service: 04/24/18 Loc: ED Accession Number: [id number] Procedure: XR knee LT 1to2V Ordering Provider: Annabel Crum D.O. PROCEDURE: XR KNEE LT 1TO2V INDICATIONS: left knee locking TECHNIQUE: 2 view(s) of the knee acquired. [facility], 3:26. FINDINGS: Patient is status post knee joint arthroplasty. Limited secondary to patient positioning. Only a crosstable lateral view with the knee in flexion and a sunrise view were acquired. Suggestion of a small joint effusion. No acute fracture. Patellar alignment appears grossly intact although evaluation limited secondary to positioning. Hardware components appear intact. No acute fractures visualized. IMPRESSION: Status post left total knee arthroplasty. Surgical hardware appears intact. Limited evaluation secondary to patient positioning with the left knee imaged in flexion. Additionally, only a crosstable lateral view and sunrise view were obtained. Suggestion of small joint effusion. No acute fracture visualized. Dictated by: Gabriel Moreland M.D. on 04/24/2018 at 21:45 Approved by: Gabriel Moreland M.D. on 04/24/2018 at 21:49 MDM Narrative Medical decision making narrative: Discussed with patient, if he had responded well to Valium and Dilaudid last time but was unsuccessful. Patient tolerated procedure well. Discharge Plan Departure Patient Disposition: Home Clinical Impression: Locking of right knee Instructions: How to Use a Knee Immobilizer Activity Restrictions/Additional Instructions: Follow up with your physician or orthopedic surgeon in the next 5-7 days. Continue to use knee brace/immobilizer for the next 3-5 days to prevent recurrence. Continue to take your home medications as prescribed. Return to the emergency department if you have any new or concerning symptoms, recurrence, new numbness, weakness or other changes. Prescriptions: No Action atorvastatin [Lipitor] 80 MG tablet 80 mg PO HS Qty: 0 RF: 0 pregabalin [Lyrica] 225 MG capsule 225 mg PO BID Qty: 0 RF: 0 aspirin 81 MG tablet,delayed release (DR/EC) 81 mg PO QDAY Qty: 0 RF: 0 omega 0-kzw-cfk-fish oil [Fish Oil] 1,000 MG capsule 1,000 mg PO TID Qty: 0 RF: 0 insulin glargine [Lantus U-100 Insulin] 100 UNIT/1 ML solution 70 unit SQ HS Qty: 0 RF: 0 insulin asp prt-insulin aspart [Novolog Mix 70-30FlexPen U-100] 100 UNIT/1 ML insulin pen 45 units SQ TIDCC Qty: 0 RF: 0 escitalopram oxalate 20 mg tablet 20 mg PO DAILY RF: 0 liraglutide [Victoza 2-Raman] 0.6 mg/0.1 mL (18 mg/3 mL) Pen Injector 1.8 mg SUBCUT BEDTIME RF: 0
[2018-04-24] MEDS: HYDROMORPHONE 1 MG INJ IV ×3 (19:49→21:02)
[2018-04-24] MEDS: diazePAM 10 MG/2 ML SYRINGE 5 MG IV ×2 (20:14→21:02)
--- NOTE | 2018-04-24 21:13 | PC.NURSE ---
These vital signs are after medication administration. Patient states there has been no change in his pain level .States he does not feel tired or sleepy at all. States he does not feel like the medications are working. Patient it visibly drowsy occasionally snores. respirations are even and unlabored. Dr. Crum aware of all of this. will continue to monitor patients vital signs and pain.
[2018-04-25 00:34] VITALS: BP 128/75; PULSE 102
== END 2018-04-25 00:46 | disposition home or self-care (01) ==
PROVIDERS: Emergency Provider Emergency Medicine; Family Provider Podiatrist; PCP Nurse Practitioner Family
DX: M23.91 Unspecified internal derangement of right knee (principal)
CPT/HCPCS: 73560; 94770; 96374; 96375; 96376; 99152; 99284; 99285; J1170; J3360

== ENCOUNTER → 2018-04-30 11:12 | Outpatient (CLI) | payer MEDICARE, OTHER, SELFPAY | PROVIDERS: Family Provider Podiatrist; PCP Nurse Practitioner Family; Visit Provider Family Medicine | DX: L60.1 Onycholysis (principal); E11.9 Type 2 diabetes mellitus without complications | CPT/HCPCS: 11730; 99213 ==

== ENCOUNTER 2018-05-03 14:07 | Emergency (ER) | payer MEDICARE, OTHER, SELFPAY ==
[2018-05-03] VITALS (10 sets, daily range): BP systolic 123–153; BP diastolic 77–104; PULSE 90–99; RESP 12–19; TEMP 37.6; O2SAT 94–99
--- NOTE | 2018-05-03 15:11 | ED.LOWEXIN ---
HPI - Extremity Injury (Lower) General Chief Complaint: Extremity Injury, Lower Stated Complaint: Locked Left knee Time Seen by Provider: 05/03/18 15:11 Source: patient Mode of arrival: EMS Limitations: no limitations History of Present Illness HPI Narrative: The patient previously underwent left knee replacement. He was at the [facility] in [place], [place]. When he stood the left knee would not extend. He has previously undergone 2 other episodes of his knee locking. He has never had dislocation, just subluxation, according to him. He has no numbness or tingling the leg. He has pain at the knee. He has had no swelling. He is in a left foot splint due to prior foot fusion associated with diabetes. Related Data Home Medications Medication Instructions Recorded Confirmed aspirin 81 mg PO QDAY #0 03/15/17 11/15/17 atorvastatin [Lipitor] 80 mg PO HS #0 03/15/17 11/15/17 insulin asp prt-insulin aspart 45 units SQ TIDCC #0 03/15/17 11/15/17 [Novolog Mix 70-30FlexPen U-100] insulin glargine [Lantus U-100 70 unit SQ HS #0 03/15/17 11/15/17 Insulin] omega 7-lvl-sne-fish oil [Fish Oil] 1,000 mg PO TID #0 03/15/17 11/15/17 pregabalin [Lyrica] 225 mg PO BID #0 03/15/17 11/15/17 escitalopram oxalate 20 mg PO DAILY 11/15/17 11/15/17 liraglutide [Victoza 2-Raman] 1.8 mg SUBCUT BEDTIME 11/15/17 11/15/17 Previous Rx's Medication Instructions Recorded hydrocodone-acetaminophen [Liberty] 1 tab PO Q4H PRN #15 tab 05/03/18 Allergies Allergy/AdvReac Type Severity Reaction Status Date / Time meperidine [MEPERIDINE] Allergy Severe SHORTNESS Verified 11/15/17 11:46 OF BREATH hydroxyzine [HYDROXYZINE] Allergy Mild RASH Verified 11/15/17 11:46 Review of Systems Review of Systems ROS Unobtainable: All systems reviewed & are unremarkable except as noted in HPI and below Constitutional Denies frequent falls, Reports snoring, Reports stops breathing during sleep and Reports other (No recent illness) ENT Ears, Nose, Mouth, and Throat: Denies dizziness, Denies mouth pain and Denies throat swelling Cardiovascular Denies chest pain, Denies irregular heart rhythm, Denies lightheadedness, Denies palpitations and Denies orthopnea Respiratory Denies chest congestion, Denies cough and Reports snoring Gastrointestinal Gastrointestinal: Denies abdominal pain, Denies change in bowel habits, Denies diarrhea, Denies nausea and Denies vomiting Musculoskeletal Denies numbness Neurologic Denies behavioral changes, Denies confusion, Denies dizziness, Denies frequent falls and Denies numbness Psychiatric Denies anxiety, Denies behavioral changes and Denies confusion Endocrine Denies palpitations Allergic/Immunologic Denies throat swelling [facility] Medical History Coronary artery disease (Acute) Diabetes (Acute) Peripheral neuropathy (Acute) Surgical History Status post left foot surgery (Acute) History of total knee arthroplasty (Acute) Social History Smoking Status: Never smoker Social History Smoking Status: Never smoker Exam Initial Vital Signs Initial Vital Signs: Vital Signs Temperature 99.7 F H 05/03/18 14:05 Pulse Rate 90 05/03/18 14:05 Respiratory Rate 18 05/03/18 14:05 Blood Pressure 153/84 H 05/03/18 14:05 Pulse Oximetry 96 05/03/18 14:05 Const General: cooperative and well developed Nutritional Appearance: well nourished Orientation: alert, awake, oriented x3 and not confused [facility] Throat: posterior oropharynx normal, tonsils normal and uvula midline Neck Neck: full ROM, trachea midline, supple, No anterior neck swelling and No lymphadenopathy Resp Effort & Inspection: normal respiratory effort, able to speak in complete sentences, no respiratory distress and no use of accessory muscles Auscultation: clear to auscultation bilaterally, no rales, no rhonchi and no wheezes Cardio Rate: regular rate Rhythm: regular rhythm Heart Sounds: no click, no gallops, no murmurs and no rubs Pulses: normal peripheral pulses Skin General: no rashes or lesions noted and No petechiae Neuro General: alert, oriented x3, gait normal and no focal motor deficits Speech: speech normal Sensory Exam: no sensory deficits noted Extrem General: no clubbing, cyanosis or edema, no pedal edema and no calf tenderness Left lower extremity: normal capillary refill and knee (The left knee is locked, but not edematous or dislocated) Details: other (Left foot is neurovascularly intact) Procedures Orthopedic Joint Reduction Joint #1: Time Out Performed: Yes Side: left Joint Reduction Location: knee/patella Analgesia: procedural sedation Local Anesthesia: other anesthetic (Etomidate 11 milligrams IV.) Technique used: traction/counter-traction Post-reduction neuro exam: intact Post-reduction vascular: intact Post Reduction X-Ray Obtained: Yes Post Reduction X-Ray Results: reduced Splint Applied: Yes Patient Tolerated Procedure: Well Orthopedic Splinting/Casting Injury #1: Side: left Lower Extremity Injury Location: knee Lower Extremity Immobilizer: knee immobilizer Post splinting neuro exam: intact Post splinting vascular exam: intact Placed by: Nursing Procedural Sedation Patient Age: Patient is 5yrs or older Indication: fracture/dislocation reduction ASA Class: II Mallampati Airway Classification: Class II Time of Last PO Intake: 15:49 Preparation: monitor and storage bin tender applied, pulse oximeter, capnometry used, supplemental O2 applied, suction/airway equipment at bedside and IV secured IV Etomidate dose (mg): 11 ED Sedation Level: Deep Patient Tolerated Procedure: Well Complications: none Additional Comments: There was well managed by RT. He had oxygen in place, but required no airway intervention. He recovered quickly from dominate, breathing deeply, obtain commands, interacting verbally. Course Orders Ordered: ED Orders 05/03/18 17:24 XR knee LT 1to2V Stat Hydromorphone HCl (Dilaudid) 2 mg IM Q4H PRN PRN Reason: Pain, Severe (7-10) Last Admin: 05/03/18 15:24 Dose: 2 mg Sodium Chloride (Normal Saline 0.9%) 1,000 mls @ 200 mls/hr IV CONT JB Last Admin: 05/03/18 17:25 Dose: 200 mls/hr Discontinued Medications Hydrocodone Bitart/Acetaminophen (Vicodin Prepack) 1 bottle MISC SEEINSTR ONE Stop: 05/03/18 18:21 Etomidate (Amidate) 15 mg IV NOW ONE Stop: 05/03/18 17:24 Last Admin: 05/03/18 17:41 Dose: 11 mg Hydromorphone HCl (Dilaudid) 1 mg IM NOW ONE Stop: 05/03/18 15:11 Last Admin: 05/03/18 15:18 Dose: Not Given Vital Signs - 8 hr 05/03/18 14:05 05/03/18 14:32 05/03/18 15:43 Temperature 99.7 F H Pulse Rate 90 94 H 99 H Respiratory Rate 18 16 14 Blood Pressure 153/84 H Blood Pressure [Left Arm] 133/77 148/89 H Pulse Oximetry 96 97 97 05/03/18 16:20 05/03/18 17:33 05/03/18 17:38 Temperature Pulse Rate 99 H 97 H 98 H Respiratory Rate 16 18 19 Blood Pressure Blood Pressure [Left Arm] 141/80 H 132/77 123/92 H Pulse Oximetry 99 95 05/03/18 17:45 05/03/18 17:50 05/03/18 18:00 Temperature Pulse Rate 99 H 98 H 99 H Respiratory Rate 18 12 12 Blood Pressure Blood Pressure [Left Arm] 137/104 H 136/83 140/78 Pulse Oximetry 96 95 94 05/03/18 18:15 Temperature Pulse Rate 95 H Respiratory Rate 13 Blood Pressure Blood Pressure [Left Arm] Pulse Oximetry MDM - Extremity Injury (Lower) Imaging Data Left knee XR:: Radiologist's impression: [place] [address] XRay Report Signed Patient: Jamir Garcia KMR#: [id number] : 9Acct:[id number] Age/Sex: 57 / MDate of Service: 05/03/18 Loc: ED Accession Number: [id number] Procedure: XR knee LT 1to2V Ordering Provider: Ken Wilkerson M.D. PROCEDURE: XR KNEE LT 1TO2V INDICATIONS: S/P reduction of left knee subluxation TECHNIQUE: 2 views of the knee were acquired. [facility]. FINDINGS: Bones: Left total knee arthroplasty appears intact without dislocation or loosening. A small bone fragment superior to the patella has a corticated appearance suggesting an old non-unified bone fragment. No acute fracture visualized. Soft tissues: No joint effusion. No suspicious soft tissue calcifications. IMPRESSION: Expected alignment of the knee joint. Dictated by: Valentine Escalante M.D. on 05/03/2018 at 18:09 Approved by: Valentine Escalante M.D. on 05/03/2018 at 18:11 [facility] Narrative Medical decision making narrative: After being placed in a knee immobilizer he is up and ambulatory. The left foot is neurovascular intact. He will be discharged with Liberty for pain. He has plans to see an orthopedic surgeon already underway. Discharge Plan Departure Patient Disposition: Home Clinical Impression: Knee subluxation Qualifiers: Encounter type: initial encounter Laterality: left Qualified Code(s): S83.102A - Unspecified subluxation of left knee, initial encounter Instructions: DI for Knee Sprain Activity Restrictions/Additional Instructions: Tylenol 2 tablets every 4 hours as needed. Liberty every 4 hours as needed for added pain treatment. Use a splint immobilizer until you are convinced the knee is doing okay. Follow up with Orthopedics as you have planned. Return to the ER as needed. Prescriptions: New hydrocodone-acetaminophen [Liberty] 5-325 mg tablet 1 tab PO Q4H PRN (Reason: pain) Qty: 15 RF: 0 No Action atorvastatin [Lipitor] 80 MG tablet 80 mg PO HS Qty: 0 RF: 0 pregabalin [Lyrica] 225 MG capsule 225 mg PO BID Qty: 0 RF: 0 aspirin 81 MG tablet,delayed release (DR/EC) 81 mg PO QDAY Qty: 0 RF: 0 omega 8-ghj-oqp-fish oil [Fish Oil] 1,000 MG capsule 1,000 mg PO TID Qty: 0 RF: 0 insulin glargine [Lantus U-100 Insulin] 100 UNIT/1 ML solution 70 unit SQ HS Qty: 0 RF: 0 insulin asp prt-insulin aspart [Novolog Mix 70-30FlexPen U-100] 100 UNIT/1 ML insulin pen 45 units SQ TIDCC Qty: 0 RF: 0 escitalopram oxalate 20 mg tablet 20 mg PO DAILY RF: 0 liraglutide [Victoza 2-Raman] 0.6 mg/0.1 mL (18 mg/3 mL) Pen Injector 1.8 mg SUBCUT BEDTIME RF: 0 Referrals: Pierre Celaya ARNP [Primary Care Provider] -
[2018-05-03] MEDS: HYDROMORPHONE 2 MG INJ IM (15:24)
--- NOTE | 2018-05-03 17:24 | DI.RAD.S_ITS ---
PROCEDURE: XR KNEE LT 1TO2V INDICATIONS: S/P reduction of left knee subluxation TECHNIQUE: 2 views of the knee were acquired. COMPARISON: [facility], [facility], XR KNEE LT 1TO2V, 04/24/2018, 19:44. FINDINGS: Bones: Left total knee arthroplasty appears intact without dislocation or loosening. A small bone fragment superior to the patella has a corticated appearance suggesting an old non-unified bone fragment. No acute fracture visualized. Soft tissues: No joint effusion. No suspicious soft tissue calcifications. IMPRESSION: Expected alignment of the knee joint. Dictated by: Valentine Escalante M.D. on 05/03/2018 at 18:09 Approved by: Valentine Escalante M.D. on 05/03/2018 at 18:11
[2018-05-03] MEDS: SODIUM CHLORIDE 0.9% 1,000 ML 200 ML IV (17:25)
[2018-05-03] MEDS: ETOMIDATE 2 MG/ML VIAL 15 MG IV (17:41)
[2018-05-03] MEDS: HYDROCODONE/ACET 5/325 PREPACK 1 BOTTLE MISC (18:27)
== END 2018-05-03 18:50 | disposition home or self-care (01) ==
PROVIDERS: Emergency Provider Emergency Medicine; Family Provider Podiatrist; PCP Nurse Practitioner Family
DX: T84.023A Instability of internal left knee prosthesis, initial encounter (principal)
CPT/HCPCS: 73560; 94770; 96361; 96372; 96374; 99152; 99285; J1170

== ENCOUNTER 2018-05-08 05:17 | Emergency (ER) | payer MEDICARE, OTHER, SELFPAY ==
--- NOTE | 2018-05-08 05:23 | ED.LOWEXIN ---
HPI - Extremity Injury (Lower) General Chief Complaint: Extremity Problem,Nontraumatic Stated Complaint: R knee lock Time Seen by Provider: 05/08/18 05:23 Source: patient Mode of arrival: EMS Limitations: no limitations History of Present Illness HPI Narrative: The patient was out walking her dog. He has a left knee immobilized due to an incident a few days ago. Has bilateral knee replacements. He complained of a dislocation to the left knee, apparently has happened before. He has a knee brace in place. I did procedural sedation to evaluate and treat the knee that was held in tight flexion. X-ray showed no dislocation. A stress the knee and evaluated under procedural sedation, indeed there was no dislocation left knee, but there was posterior spasm in the left knee. The left knee is brace. He slipped outside [employer], landing on his bottom. He arrives via EMS with the right knee held in contraction. He denies head, neck, back or buttock pain. He has the right knee held in slight flexion complain of pain. There is no bleeding from lower extremity. There is no numbness or tingling. Related Data Home Medications Medication Instructions Recorded Confirmed aspirin 81 mg PO QDAY #0 03/15/17 11/15/17 atorvastatin [Lipitor] 80 mg PO HS #0 03/15/17 11/15/17 insulin asp prt-insulin aspart 45 units SQ TIDCC #0 03/15/17 11/15/17 [Novolog Mix 70-30FlexPen U-100] insulin glargine [Lantus U-100 70 unit SQ HS #0 03/15/17 11/15/17 Insulin] omega 9-hhe-ova-fish oil [Fish Oil] 1,000 mg PO TID #0 03/15/17 11/15/17 pregabalin [Lyrica] 225 mg PO BID #0 03/15/17 11/15/17 escitalopram oxalate 20 mg PO DAILY 11/15/17 11/15/17 liraglutide [Victoza 2-Raman] 1.8 mg SUBCUT BEDTIME 11/15/17 11/15/17 Previous Rx's Medication Instructions Recorded hydrocodone-acetaminophen [Joppa] 1 tab PO Q4H PRN #15 tab 05/03/18 methocarbamol [Robaxin-750] 750 mg PO QID #30 tab 05/08/18 Allergies Allergy/AdvReac Type Severity Reaction Status Date / Time meperidine [MEPERIDINE] Allergy Severe SHORTNESS Verified 11/15/17 11:46 OF BREATH hydroxyzine [HYDROXYZINE] Allergy Mild RASH Verified 11/15/17 11:46 Review of Systems Constitutional Denies lethargy and Denies weakness ENT Ears, Nose, Mouth, and Throat: Denies neck pain and Denies sore throat Cardiovascular Denies chest pain, Denies irregular heart rhythm, Denies lightheadedness, Denies palpitations and Denies dyspnea Respiratory Denies cough, Denies dyspnea and Denies wheezing Musculoskeletal Reports as per HPI, Denies back pain, Denies neck pain and Denies numbness Integumentary/Breasts Denies pruritus, Denies erythema, Denies rash and Denies wounds Neurologic Denies numbness and Denies weakness Endocrine Denies palpitations Allergic/Immunologic Denies wheezing [facility] Medical History Coronary artery disease (Acute) Diabetes (Acute) Peripheral neuropathy (Acute) Surgical History History of total knee arthroplasty (Acute) Status post left foot surgery (Acute) Social History Smoking Status: Never smoker Social History Smoking Status: Never smoker Exam Initial Vital Signs Initial Vital Signs: Vital Signs Temperature 98.3 F 05/08/18 05:25 Pulse Rate 95 H 05/08/18 05:25 Respiratory Rate 18 05/08/18 05:25 Blood Pressure 133/78 05/08/18 05:25 Pulse Oximetry 95 05/08/18 05:25 Const General: cooperative, comfortable and well developed Orientation: oriented to person Neck Neck: full ROM and No tender Back/Spine/Pelvis Cervical Spine: No cervical muscular tenderness Thoracic/Lumbar Spine: thoracic and lumbar spine normal to inspection Skin General: no rashes or lesions noted, No jaundice and No petechiae Neuro General: alert, oriented x3, gait normal and no focal motor deficits Speech: speech normal Extrem General: full ROM, no clubbing, cyanosis or edema, no pedal edema and no calf tenderness Other: The right knee was in an air splint upon arrival. He has no tenderness at the hip. He has no palpable deformity to the knee. There is no right knee swelling or ecchymosis. He is holding his right calf and Achilles in retraction, resisting my exam. There is no tenderness or injury in the right ankle or foot. The right ankle and foot are neurovascularly intact. Procedures Orthopedic Splinting/Casting Injury #1: Side: right Lower Extremity Injury Location: knee Lower Extremity Immobilizer: knee immobilizer Post splinting neuro exam: intact Post splinting vascular exam: intact Placed by: Nursing Course Course Narrative: The patient received injection of Toradol after arrival. He also received an injection of Ativan. Traction was applied to the right ankle, with the foot in flexion. Pressure was continuously applied, the knee was straight without incident. He complains of spasm after reducing the knee. Again, he has spasm and is holding in flexion. There is no right knee laxity, edema or deformity. There is obviously no bony or ligamentous injury. Orders Ordered: Discontinued Medications Ketorolac Tromethamine (Toradol) 60 mg IM NOW ONE Stop: 05/08/18 05:34 Last Admin: 05/08/18 05:40 Dose: 60 mg Lorazepam (Ativan) 2 mg IM NOW ONE Stop: 05/08/18 05:34 Last Admin: 05/08/18 05:40 Dose: 2 mg Vital Signs - 8 hr 05/08/18 05:25 05/08/18 06:07 05/08/18 06:46 Temperature 98.3 F Pulse Rate 95 H 96 H 96 H Respiratory Rate 18 20 18 Blood Pressure 133/78 Blood Pressure [Right Arm] 130/76 145/76 H Pulse Oximetry 95 97 96 Discharge Plan Departure Patient Disposition: Home Clinical Impression: Muscle spasm of right leg Discharge Date/Time: 05/08/18 08:08 Activity Restrictions/Additional Instructions: Continue her current medications. He now has splints on both knees. You are about to receive a orthopedic evaluation. You have spasm in both knees, perhaps related to the prior surgery. Following the input from your orthopedic surgeon, I would suggest you seek physical therapy. Frequent stretching to her lower extremities, methocarbamol 750 mg every 6 hr. Prescriptions: New methocarbamol [Robaxin-750] 750 mg tablet 750 mg PO QID Qty: 30 RF: 1 No Action atorvastatin [Lipitor] 80 MG tablet 80 mg PO HS Qty: 0 RF: 0 pregabalin [Lyrica] 225 MG capsule 225 mg PO BID Qty: 0 RF: 0 aspirin 81 MG tablet,delayed release (DR/EC) 81 mg PO QDAY Qty: 0 RF: 0 omega 6-sry-toj-fish oil [Fish Oil] 1,000 MG capsule 1,000 mg PO TID Qty: 0 RF: 0 insulin glargine [Lantus U-100 Insulin] 100 UNIT/1 ML solution 70 unit SQ HS Qty: 0 RF: 0 insulin asp prt-insulin aspart [Novolog Mix 70-30FlexPen U-100] 100 UNIT/1 ML insulin pen 45 units SQ TIDCC Qty: 0 RF: 0 escitalopram oxalate 20 mg tablet 20 mg PO DAILY RF: 0 liraglutide [Victoza 2-Raman] 0.6 mg/0.1 mL (18 mg/3 mL) Pen Injector 1.8 mg SUBCUT BEDTIME RF: 0 hydrocodone-acetaminophen [Joppa] 5-325 mg tablet 1 tab PO Q4H PRN (Reason: pain) Qty: 15 RF: 0 Referrals: Pierre Celaya ARNP [Primary Care Provider] -
[2018-05-08 05:25] VITALS: BP 133/78; PULSE 95; RESP 18; TEMP 36.8; O2SAT 95
[2018-05-08] MEDS: KETOROLAC 60 MG/2 ML VIAL IM (05:40)
[2018-05-08] MEDS: LORazepam 2 MG/ML SYRINGE IM (05:40)
[2018-05-08 06:07] VITALS: BP 130/76; PULSE 96; RESP 20; O2SAT 97
[2018-05-08 06:46] VITALS: BP 145/76; PULSE 96; RESP 18; O2SAT 96
== END 2018-05-08 08:08 | disposition home or self-care (01) ==
PROVIDERS: Emergency Provider Emergency Medicine; Family Provider Podiatrist; PCP Nurse Practitioner Family
DX: M62.838 Other muscle spasm (principal)
CPT/HCPCS: 29505; 96374; 96375; 99283; 99284; J1885; J2060

== ENCOUNTER 2018-05-28 16:15 | Emergency (ER) | payer MEDICARE, OTHER, SELFPAY ==
--- NOTE | 2018-05-28 16:37 | ED.LOWEXIN ---
HPI - Extremity Injury (Lower) <ANI Pickard - Last Filed: 05/28/18 22:20> General Chief Complaint: Extremity Injury, Lower Stated Complaint: Knee locked up Time Seen by Provider: 05/28/18 16:42 Source: patient Mode of arrival: ambulatory Limitations: no limitations History of Present Illness HPI Narrative: 57-year-old male with history of type 2 diabetes and is a nonsmoker here for complaint of his left knee locking up this afternoon. He states that he was out on the [place] when he started having pain to his left knee as he stepped awkwardly towards the end of the day. He got back home and stood up off of his seat and felt his knee lock in place. He has had multiple episodes of his left knee locking in the flexed position over the past month to to. He has had reduction of the left knee either by benzodiazepines and pain medication or a by sedation. He is currently awaiting to see orthopedics Dr. reina Castillo in the next couple days for re-evaluation he states that his knee replacement to that knee is in recall and needs to be replaced again. He denies any trauma to the area. He denies any other concerns or complaints at this timeframe Related Data Home Medications Medication Instructions Recorded Confirmed aspirin 81 mg PO QDAY #0 03/15/17 11/15/17 atorvastatin [Lipitor] 80 mg PO HS #0 03/15/17 11/15/17 insulin asp prt-insulin aspart 45 units SQ TIDCC #0 03/15/17 11/15/17 [Novolog Mix 70-30FlexPen U-100] insulin glargine [Lantus U-100 70 unit SQ HS #0 03/15/17 11/15/17 Insulin] omega 7-zen-doa-fish oil [Fish Oil] 1,000 mg PO TID #0 03/15/17 11/15/17 pregabalin [Lyrica] 225 mg PO BID #0 03/15/17 11/15/17 escitalopram oxalate 20 mg PO DAILY 11/15/17 11/15/17 liraglutide [Victoza 2-Raman] 1.8 mg SUBCUT BEDTIME 11/15/17 11/15/17 Previous Rx's Medication Instructions Recorded hydrocodone-acetaminophen [Wellford] 1 tab PO Q4H PRN #15 tab 05/03/18 methocarbamol [Robaxin-750] 750 mg PO QID #30 tab 05/08/18 Allergies Allergy/AdvReac Type Severity Reaction Status Date / Time meperidine [MEPERIDINE] Allergy Severe SHORTNESS Verified 05/28/18 17:11 OF BREATH hydroxyzine [HYDROXYZINE] Allergy Mild RASH Verified 05/28/18 17:11 Review of Systems <ANI Pickard - Last Filed: 05/28/18 22:20> Constitutional Denies chills, Denies fever(s), Denies lethargy and Denies weakness Eyes Denies change in vision, Denies eye discharge, Denies irritation and Denies loss of vision ENT Ears, Nose, Mouth, and Throat: Denies change in voice, Denies neck pain and Denies sore throat Cardiovascular Denies chest pain, Denies irregular heart rhythm, Denies lightheadedness, Denies palpitations, Denies dyspnea, Denies dyspnea on exertion and Denies orthopnea Respiratory Denies cough, Denies dyspnea, Denies dyspnea on exertion and Denies wheezing Gastrointestinal Gastrointestinal: Denies abdominal pain, Denies change in bowel habits, Denies diarrhea, Denies nausea and Denies vomiting Musculoskeletal Denies neck pain Comments: Left knee flexion locked Integumentary/Breasts Denies pruritus, Denies erythema, Denies rash and Denies wounds Neurologic Denies loss of vision and Denies weakness Endocrine Denies palpitations Hematologic/Lymphatic Denies easy bruising Allergic/Immunologic Denies wheezing PFSH <ANI Pickard - Last Filed: 05/28/18 22:20> Medical History Coronary artery disease (Acute) Diabetes (Acute) Peripheral neuropathy (Acute) Surgical History History of total knee arthroplasty (Acute) Status post left foot surgery (Acute) Social History Smoking Status: Never smoker Social History Smoking Status: Never smoker Exam <ANI Pickard - Last Filed: 05/28/18 22:20> Initial Vital Signs Initial Vital Signs: Vital Signs Pulse Rate 100 H 05/28/18 17:00 Respiratory Rate 18 05/28/18 17:00 Blood Pressure 153/82 H 05/28/18 17:00 Pulse Oximetry 97 05/28/18 17:00 Const General: cooperative and well developed Nutritional Appearance: well nourished Orientation: alert, awake, oriented x3 and not confused [facility] Mouth: oral mucosae normal and moist mucous membranes Eyes Conjunctivae: conjunctivae normal Sclera: sclerae normal Pupils: PERRL EOM: EOM intact bilaterally Neck Neck: normal visual inspection, trachea midline, No lymphadenopathy, No midline deformity and No JVD Lymphatic: No lymphedema Resp Effort & Inspection: normal respiratory effort, able to speak in complete sentences, no respiratory distress and no use of accessory muscles Auscultation: clear to auscultation bilaterally, no rales, no rhonchi and no wheezes Cardio Rate: regular rate Rhythm: regular rhythm Heart Sounds: no click, no gallops, no murmurs and no rubs Pulses: normal peripheral pulses GI Inspection: non-distended Palpation: soft, no hepatosplenomegaly, No guarding, No pulsatile mass and No tender Auscultation: normal bowel sounds Back/Spine/Pelvis Back: No CVA tenderness Cervical Spine: cervical ROM normal and No pain with cervical ROM Thoracic/Lumbar Spine: thoracic and lumbar spine normal to inspection Skin General: no rashes or lesions noted, No jaundice and No petechiae Neuro General: alert, oriented x3, gait normal and no focal motor deficits Speech: speech normal Extrem Other: Left knee with no signs of trauma. Distal sensation is not intact due to diabetic peripheral neuropathy not a new finding. Distal pulses are intact. Distal range of motion is intact. Left knee is in approximately at 140? flexion with the inability for him to extend. <Jamir Rizzo DO - Last Filed: 05/29/18 02:00> Initial Vital Signs Initial Vital Signs: Vital Signs Pulse Rate 100 H 05/28/18 17:00 Respiratory Rate 18 05/28/18 17:00 Blood Pressure 153/82 H 05/28/18 17:00 Pulse Oximetry 97 05/28/18 17:00 Course <ANI Pickard - Last Filed: 05/28/18 22:20> Orders Ordered: Discontinued Medications Diazepam (Valium) 5 mg IV NOW ONE Stop: 05/28/18 21:03 Last Admin: 05/28/18 21:31 Dose: 5 mg Hydromorphone HCl (Dilaudid) 1 mg IV NOW ONE Stop: 05/28/18 16:40 Last Admin: 05/28/18 18:03 Dose: 1 mg Hydromorphone HCl (Dilaudid) 1 mg IV NOW ONE Stop: 05/28/18 20:18 Last Admin: 05/28/18 20:39 Dose: 1 mg Lorazepam (Ativan) 1 mg IV NOW ONE Stop: 05/28/18 16:40 Last Admin: 05/28/18 18:03 Dose: 1 mg Vital Signs - 8 hr 05/28/18 18:09 05/28/18 19:00 05/28/18 22:35 Pulse Rate 99 H 105 H 101 H Respiratory Rate 16 18 Blood Pressure 150/73 H Blood Pressure [Right Arm] 159/100 H 153/74 H Pulse Oximetry 99 95 <Jamir Rizzo DO - Last Filed: 05/29/18 02:00> Orders Ordered: Discontinued Medications Diazepam (Valium) 5 mg IV NOW ONE Stop: 05/28/18 21:03 Last Admin: 05/28/18 21:31 Dose: 5 mg Hydromorphone HCl (Dilaudid) 1 mg IV NOW ONE Stop: 05/28/18 16:40 Last Admin: 05/28/18 18:03 Dose: 1 mg Hydromorphone HCl (Dilaudid) 1 mg IV NOW ONE Stop: 05/28/18 20:18 Last Admin: 05/28/18 20:39 Dose: 1 mg Lorazepam (Ativan) 1 mg IV NOW ONE Stop: 05/28/18 16:40 Last Admin: 05/28/18 18:03 Dose: 1 mg Vital Signs - 8 hr 05/28/18 18:09 05/28/18 19:00 05/28/18 22:35 Pulse Rate 99 H 105 H 101 H Respiratory Rate 16 18 Blood Pressure 150/73 H Blood Pressure [Right Arm] 159/100 H 153/74 H Pulse Oximetry 99 95 MDM - Extremity Injury (Lower) <ANI Pickard - Last Filed: 05/28/18 22:20> Imaging Data Left knee : Radiologist's impression: [address] [address] XRay Report Signed Patient: Jamir Garcia KMR#: [id number] : 9Acct:[id number] Age/Sex: 57 / MDate of Service: 05/28/18 Loc: ED Accession Number: [id number] Procedure: XR knee LT 3V Ordering Provider: Pierre Celaya PROCEDURE: XR KNEE LT 3V INDICATIONS: States left knee is locked again TECHNIQUE: 2 views of the knee were acquired. COMPARISON: None. FINDINGS: Bones: Patient is status post prior right total knee arthroplasty. No gross acute fracture or dislocation is seen. No gross hardware loosening or failure is noted. No suspicious bony lesions. Soft tissues: No joint effusion. No suspicious soft tissue calcifications. Thickened distal patella tendon near its anterior tibial insertion is seen, patellar tendinosis cannot be excluded. IMPRESSION: No left knee fracture or dislocation. No gross hardware complication. Suggestion of thickened distal patella tendon near its tibial insertion which may indicate patellar tendinosis. Dictated by: Michael Oneill M.D. on 05/28/2018 at 17:02 Approved by: Michael Oneill M.D. on 05/28/2018 at 17:04 [facility] Narrative Medical decision making narrative: Attempted to reduce the left knee with Ativan and Dilaudid and was unsuccessful. Discussed case with Orthopedics who recommended trying again or doing sedation to to get need to extend. He was given more pain medication and Valium at and was able to get the knee to a neutral position. He is placed in a knee immobilizer and crutches he follow up with Orthopedics in next couple days. Use currently prescribed pain management regimen as needed for any discomfort and other prescribed medications as directed. Return emergency room for any worsening symptoms. Discharge Plan Departure Patient Disposition: Home Clinical Impression: Knee subluxation Qualifiers: Encounter type: initial encounter Laterality: left Qualified Code(s): S83.102A - Unspecified subluxation of left knee, initial encounter Discharge Date/Time: 05/28/18 22:35 Interventions: ED Discharge Assessment Last Done: 05/28/18 22:35 Instructions: DI for Knee Pain Activity Restrictions/Additional Instructions: X-ray was obtained was negative for any acute findings. Knee was reduced today in the emergency room. Wear knee immobilizer and use crutches to help support the left knee. Follow up with Orthopedics in the next couple days as scheduled. Rest knee. Use currently prescribed pain management regimen and prescriptions as directed for any worsening symptoms return to the emergency room. Prescriptions: No Action atorvastatin [Lipitor] 80 MG tablet 80 mg PO HS Qty: 0 RF: 0 pregabalin [Lyrica] 225 MG capsule 225 mg PO BID Qty: 0 RF: 0 aspirin 81 MG tablet,delayed release (DR/EC) 81 mg PO QDAY Qty: 0 RF: 0 omega 4-omz-gbn-fish oil [Fish Oil] 1,000 MG capsule 1,000 mg PO TID Qty: 0 RF: 0 insulin glargine [Lantus U-100 Insulin] 100 UNIT/1 ML solution 70 unit SQ HS Qty: 0 RF: 0 insulin asp prt-insulin aspart [Novolog Mix 70-30FlexPen U-100] 100 UNIT/1 ML insulin pen 45 units SQ TIDCC Qty: 0 RF: 0 escitalopram oxalate 20 mg tablet 20 mg PO DAILY RF: 0 liraglutide [Victoza 2-Raman] 0.6 mg/0.1 mL (18 mg/3 mL) Pen Injector 1.8 mg SUBCUT BEDTIME RF: 0 methocarbamol [Robaxin-750] 750 mg tablet 750 mg PO QID Qty: 30 RF: 1 hydrocodone-acetaminophen [Wellford] 5-325 mg tablet 1 tab PO Q4H PRN (Reason: pain) Qty: 15 RF: 0 Referrals: Pierer Cealya ARNP [Primary Care Provider] - Keyana Castillo MD [Physician] - <Jamir Rizzo DO - Last Filed: 05/29/18 02:00> Cosign ED Attending Wesleyature Attestation: I was available for consultation during this patient's emergency department encounter
[2018-05-28 17:00] VITALS: BP 153/82; PULSE 100; RESP 18; O2SAT 97
[2018-05-28 17:06] VITALS: BP 153/82; PULSE 100; RESP 18; O2SAT 97
[2018-05-28] MEDS: LORazepam 2 MG/ML SYRINGE 1 MG IV (18:03)
[2018-05-28] MEDS: HYDROMORPHONE 1 MG INJ IV ×2 (18:03→20:39)
[2018-05-28 18:09] VITALS: BP 159/100; PULSE 99; RESP 16; O2SAT 99
--- NOTE | 2018-05-28 18:10 | PC.NURSE ---
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
[2018-05-28 19:00] VITALS: BP 153/74; PULSE 105; RESP 18; O2SAT 95
[2018-05-28] MEDS: diazePAM 10 MG/2 ML SYRINGE 5 MG IV (21:31)
--- NOTE | 2018-05-28 22:10 | ED_ITS ---
HPI - Extremity Injury (Lower) <ANI Pickard - Last Filed: 05/28/18 22:20> General Chief Complaint: Extremity Injury, Lower Stated Complaint: Knee locked up Time Seen by Provider: 05/28/18 16:42 Source: patient Mode of arrival: ambulatory Limitations: no limitations History of Present Illness HPI Narrative: 57-year-old male with history of type 2 diabetes and is a nonsmoker here for complaint of his left knee locking up this afternoon. He states that he was out [place] the [place] when he started having pain to his left knee as he stepped awkwardly towards the end of the day. He got back home and stood up off of his seat and felt his knee lock in place. He has had multiple episodes of his left knee locking in the flexed position over the past month to to. He has had reduction of the left knee either by benzodiazepines and pain medication or a by sedation. He is currently awaiting to see orthopedics Dr. reina Castillo in the next couple days for re-evaluation he states that his knee replacement to that knee is in recall and needs to be replaced again. He denies any trauma to the area. He denies any other concerns or complaints at this timeframe Related Data Home Medications Medication Instructions Recorded Confirmed aspirin 81 mg PO QDAY #0 03/15/17 11/15/17 atorvastatin [Lipitor] 80 mg PO HS #0 03/15/17 11/15/17 insulin asp prt-insulin aspart 45 units SQ TIDCC #0 03/15/17 11/15/17 [Novolog Mix 70-30FlexPen U-100] insulin glargine [Lantus U-100 70 unit SQ HS #0 03/15/17 11/15/17 Insulin] omega 8-wmk-xts-fish oil [Fish Oil] 1,000 mg PO TID #0 03/15/17 11/15/17 pregabalin [Lyrica] 225 mg PO BID #0 03/15/17 11/15/17 escitalopram oxalate 20 mg PO DAILY 11/15/17 11/15/17 liraglutide [Victoza 2-Raman] 1.8 mg SUBCUT BEDTIME 11/15/17 11/15/17 Previous Rx's Medication Instructions Recorded hydrocodone-acetaminophen [Olean] 1 tab PO Q4H PRN #15 tab 05/03/18 methocarbamol [Robaxin-750] 750 mg PO QID #30 tab 05/08/18 Allergies Allergy/AdvReac Type Severity Reaction Status Date / Time meperidine [MEPERIDINE] Allergy Severe SHORTNESS Verified 05/28/18 17:11 OF BREATH hydroxyzine [HYDROXYZINE] Allergy Mild RASH Verified 05/28/18 17:11 Review of Systems <ANI Pickard - Last Filed: 05/28/18 22:20> Constitutional Denies chills, Denies fever(s), Denies lethargy and Denies weakness Eyes Denies change in vision, Denies eye discharge, Denies irritation and Denies loss of vision ENT Ears, Nose, Mouth, and Throat: Denies change in voice, Denies neck pain and Denies sore throat Cardiovascular Denies chest pain, Denies irregular heart rhythm, Denies lightheadedness, Denies palpitations, Denies dyspnea, Denies dyspnea on exertion and Denies orthopnea Respiratory Denies cough, Denies dyspnea, Denies dyspnea on exertion and Denies wheezing Gastrointestinal Gastrointestinal: Denies abdominal pain, Denies change in bowel habits, Denies diarrhea, Denies nausea and Denies vomiting Musculoskeletal Denies neck pain Comments: Left knee flexion locked Integumentary/Breasts Denies pruritus, Denies erythema, Denies rash and Denies wounds Neurologic Denies loss of vision and Denies weakness Endocrine Denies palpitations Hematologic/Lymphatic Denies easy bruising Allergic/Immunologic Denies wheezing PFSH <ANI Pickard - Last Filed: 05/28/18 22:20> Medical History Coronary artery disease (Acute) Diabetes (Acute) Peripheral neuropathy (Acute) Surgical History History of total knee arthroplasty (Acute) Status post left foot surgery (Acute) Social History Smoking Status: Never smoker Social History Smoking Status: Never smoker Exam <ANI Pickard - Last Filed: 05/28/18 22:20> Initial Vital Signs Initial Vital Signs: Vital Signs Pulse Rate 100 H 05/28/18 17:00 Respiratory Rate 18 05/28/18 17:00 Blood Pressure 153/82 H 05/28/18 17:00 Pulse Oximetry 97 05/28/18 17:00 Const General: cooperative and well developed Nutritional Appearance: well nourished Orientation: alert, awake, oriented x3 and not confused [facility] Mouth: oral mucosae normal and moist mucous membranes Eyes Conjunctivae: conjunctivae normal Sclera: sclerae normal Pupils: PERRL EOM: EOM intact bilaterally Neck Neck: normal visual inspection, trachea midline, No lymphadenopathy, No midline deformity and No JVD Lymphatic: No lymphedema Resp Effort & Inspection: normal respiratory effort, able to speak in complete sentences, no respiratory distress and no use of accessory muscles Auscultation: clear to auscultation bilaterally, no rales, no rhonchi and no wheezes Cardio Rate: regular rate Rhythm: regular rhythm Heart Sounds: no click, no gallops, no murmurs and no rubs Pulses: normal peripheral pulses GI Inspection: non-distended Palpation: soft, no hepatosplenomegaly, No guarding, No pulsatile mass and No tender Auscultation: normal bowel sounds Back/Spine/Pelvis Back: No CVA tenderness Cervical Spine: cervical ROM normal and No pain with cervical ROM Thoracic/Lumbar Spine: thoracic and lumbar spine normal to inspection Skin General: no rashes or lesions noted, No jaundice and No petechiae Neuro General: alert, oriented x3, gait normal and no focal motor deficits Speech: speech normal Extrem Other: Left knee with no signs of trauma. Distal sensation is not intact due to diabetic peripheral neuropathy not a new finding. Distal pulses are intact. Distal range of motion is intact. Left knee is in approximately at 140? flexion with the inability for him to extend. <Jamir Rizzo DO - Last Filed: 05/29/18 02:00> Initial Vital Signs Initial Vital Signs: Vital Signs Pulse Rate 100 H 05/28/18 17:00 Respiratory Rate 18 05/28/18 17:00 Blood Pressure 153/82 H 05/28/18 17:00 Pulse Oximetry 97 05/28/18 17:00 Course <ANI Pickard - Last Filed: 05/28/18 22:20> Orders Ordered: Discontinued Medications Diazepam (Valium) 5 mg IV NOW ONE Stop: 05/28/18 21:03 Last Admin: 05/28/18 21:31 Dose: 5 mg Hydromorphone HCl (Dilaudid) 1 mg IV NOW ONE Stop: 05/28/18 16:40 Last Admin: 05/28/18 18:03 Dose: 1 mg Hydromorphone HCl (Dilaudid) 1 mg IV NOW ONE Stop: 05/28/18 20:18 Last Admin: 05/28/18 20:39 Dose: 1 mg Lorazepam (Ativan) 1 mg IV NOW ONE Stop: 05/28/18 16:40 Last Admin: 05/28/18 18:03 Dose: 1 mg Vital Signs - 8 hr 05/28/18 18:09 05/28/18 19:00 05/28/18 22:35 Pulse Rate 99 H 105 H 101 H Respiratory Rate 16 18 Blood Pressure 150/73 H Blood Pressure [Right Arm] 159/100 H 153/74 H Pulse Oximetry 99 95 <Jamir Rizzo DO - Last Filed: 05/29/18 02:00> Orders Ordered: Discontinued Medications Diazepam (Valium) 5 mg IV NOW ONE Stop: 05/28/18 21:03 Last Admin: 05/28/18 21:31 Dose: 5 mg Hydromorphone HCl (Dilaudid) 1 mg IV NOW ONE Stop: 05/28/18 16:40 Last Admin: 05/28/18 18:03 Dose: 1 mg Hydromorphone HCl (Dilaudid) 1 mg IV NOW ONE Stop: 05/28/18 20:18 Last Admin: 05/28/18 20:39 Dose: 1 mg Lorazepam (Ativan) 1 mg IV NOW ONE Stop: 05/28/18 16:40 Last Admin: 05/28/18 18:03 Dose: 1 mg Vital Signs - 8 hr 05/28/18 18:09 05/28/18 19:00 05/28/18 22:35 Pulse Rate 99 H 105 H 101 H Respiratory Rate 16 18 Blood Pressure 150/73 H Blood Pressure [Right Arm] 159/100 H 153/74 H Pulse Oximetry 99 95 MDM - Extremity Injury (Lower) <ANI Pickard - Last Filed: 05/28/18 22:20> Imaging Data Left knee : Radiologist's impression: [address] [address] XRay Report Signed Patient: Jamir Garcia KMR#: [id number] : 9Acct:[id number] Age/Sex: 57 / MDate of Service: 05/28/18 Loc: ED Accession Number: [id number] Procedure: XR knee LT 3V Ordering Provider: Pierre Celaya PROCEDURE: XR KNEE LT 3V INDICATIONS: States left knee is locked again TECHNIQUE: 2 views of the knee were acquired. COMPARISON: None. FINDINGS: Bones: Patient is status post prior right total knee arthroplasty. No gross acute fracture or dislocation is seen. No gross hardware loosening or failure is noted. No suspicious bony lesions. Soft tissues: No joint effusion. No suspicious soft tissue calcifications. Thickened distal patella tendon near its anterior tibial insertion is seen, patellar tendinosis cannot be excluded. IMPRESSION: No left knee fracture or dislocation. No gross hardware complication. Suggestion of thickened distal patella tendon near its tibial insertion which may indicate patellar tendinosis. Dictated by: Michael Oneill M.D. on 05/28/2018 at 17:02 Approved by: Michael Oneill M.D. on 05/28/2018 at 17:04 [facility] Narrative Medical decision making narrative: Attempted to reduce the left knee with Ativan and Dilaudid and was unsuccessful. Discussed case with Orthopedics who recommended trying again or doing sedation to to get need to extend. He was given more pain medication and Valium at and was able to get the knee to a neutral position. He is placed in a knee immobilizer and crutches he follow up with Orthopedics in next couple days. Use currently prescribed pain management regimen as needed for any discomfort and other prescribed medications as directed. Return emergency room for any worsening symptoms. Discharge Plan Departure Patient Disposition: Home Clinical Impression: Knee subluxation Qualifiers: Encounter type: initial encounter Laterality: left Qualified Code(s): S83.102A - Unspecified subluxation of left knee, initial encounter Discharge Date/Time: 05/28/18 22:35 Interventions: ED Discharge Assessment Last Done: 05/28/18 22:35 Instructions: DI for Knee Pain Activity Restrictions/Additional Instructions: X-ray was obtained was negative for any acute findings. Knee was reduced today in the emergency room. Wear knee immobilizer and use crutches to help support the left knee. Follow up with Orthopedics in the next couple days as scheduled. Rest knee. Use currently prescribed pain management regimen and prescriptions as directed for any worsening symptoms return to the emergency room. Prescriptions: No Action atorvastatin [Lipitor] 80 MG tablet 80 mg PO HS Qty: 0 RF: 0 pregabalin [Lyrica] 225 MG capsule 225 mg PO BID Qty: 0 RF: 0 aspirin 81 MG tablet,delayed release (DR/EC) 81 mg PO QDAY Qty: 0 RF: 0 omega 3-vfr-ohk-fish oil [Fish Oil] 1,000 MG capsule 1,000 mg PO TID Qty: 0 RF: 0 insulin glargine [Lantus U-100 Insulin] 100 UNIT/1 ML solution 70 unit SQ HS Qty: 0 RF: 0 insulin asp prt-insulin aspart [Novolog Mix 70-30FlexPen U-100] 100 UNIT/1 ML insulin pen 45 units SQ TIDCC Qty: 0 RF: 0 escitalopram oxalate 20 mg tablet 20 mg PO DAILY RF: 0 liraglutide [Victoza 2-Raman] 0.6 mg/0.1 mL (18 mg/3 mL) Pen Injector 1.8 mg SUBCUT BEDTIME RF: 0 methocarbamol [Robaxin-750] 750 mg tablet 750 mg PO QID Qty: 30 RF: 1 hydrocodone-acetaminophen [Olean] 5-325 mg tablet 1 tab PO Q4H PRN (Reason: pain) Qty: 15 RF: 0 Referrals: Pierre Celaya ARNP [Primary Care Provider] - Keyana Castillo MD [Physician] - <Jamir Rizzo DO - Last Filed: 05/29/18 02:00> Cosign ED Attending Wesleyature Attestation: I was available for consultation during this patient's emergency department encounter
[2018-05-28 22:35] VITALS: BP 150/73; PULSE 101
== END 2018-05-28 22:35 | disposition home or self-care (01) ==
PROVIDERS: Emergency Provider Nurse Practitioner Family; Family Provider Podiatrist; PCP Nurse Practitioner Family
DX: S83.102A Unspecified subluxation of left knee, initial encounter (principal)
CPT/HCPCS: 73562; 96374; 96375; 96376; 99283; 99284; J1170; J2060; J3360

== ENCOUNTER 2018-06-04 21:18 | Inpatient (IN) | payer MEDICARE, OTHER, SELFPAY ==
--- NOTE | 2018-06-04 21:20 | ED.EXTPRO ---
HPI - Extremity Problem General Chief complaint: Extremity Injury, Lower Stated complaint: GLF Time Seen by Provider: 06/04/18 21:19 Source: patient and EMS Mode of arrival: EMS Limitations: no limitations History of Present Illness HPI Narrative: 57-year-old male former smoker with extensive orthopedic history presents with a ground level fall today which resulted in a left knee injury. he has had multiple recent visits under similar circumstances in which his left knee in the postsurgical hardware seem to be be failing him. Today he fell when his knee gave out and he has been unable to straighten his leg due to pain and mechanical obstruction. He denies any numbness, tingling distal to the injury. He states that his foot bothers him a bit as well. He denies any head neck or back pain. He states that he fell purely because his knee gave out and not because he was dizzy weak or lightheaded. MD Complaint: extremity pain, joint swelling and joint paint Onset (ago): minute(s) Pain Consistency: constant Location: left Quality: aching Relieving factors: rest Exacerbating factors: range of motion Associated symptoms: denies other symptoms Related Data Home Medications Medication Instructions Recorded Confirmed Lantus U-100 Insulin 60 unit SQ HS #0 03/15/17 06/05/18 Lyrica 225 mg PO BID #0 03/15/17 06/05/18 Novolog Mix 70-30FlexPen U-100 60 units SQ TIDCC #0 03/15/17 06/05/18 aspirin 81 mg PO QDAY #0 03/15/17 06/05/18 atorvastatin [Lipitor] 80 mg PO HS #0 03/15/17 06/05/18 omega 7-lyb-chy-fish oil [Fish Oil] 1,000 mg PO TID #0 03/15/17 06/05/18 escitalopram oxalate 20 mg PO DAILY 11/15/17 06/05/18 liraglutide [Victoza 2-Raman] 1.8 mg SUBCUT BEDTIME 11/15/17 06/05/18 pantoprazole 40 mg PO BID 06/05/18 06/05/18 Previous Rx's Medication Instructions Recorded hydrocodone-acetaminophen [[place]] 1 tab PO Q4H PRN #15 tab 05/03/18 methocarbamol [Robaxin-750] 750 mg PO QID #30 tab 05/08/18 Allergies Allergy/AdvReac Type Severity Reaction Status Date / Time meperidine [MEPERIDINE] Allergy Severe SHORTNESS Verified 05/28/18 17:11 OF BREATH hydroxyzine [HYDROXYZINE] Allergy Mild RASH Verified 05/28/18 17:11 Review of Systems Constitutional Denies chills, Denies fever(s), Denies lethargy and Denies weakness Eyes Denies change in vision, Denies eye discharge, Denies irritation and Denies loss of vision ENT Ears, Nose, Mouth, and Throat: Denies change in voice, Denies neck pain and Denies sore throat Cardiovascular Denies chest pain, Denies irregular heart rhythm, Denies lightheadedness, Denies palpitations, Denies dyspnea, Denies dyspnea on exertion and Denies orthopnea Respiratory Denies cough, Denies dyspnea, Denies dyspnea on exertion and Denies wheezing Gastrointestinal Gastrointestinal: Denies abdominal pain, Denies change in bowel habits, Denies diarrhea, Denies nausea and Denies vomiting Genitourinary Denies hematuria, Denies flank pain, Denies urinary incontinence and Denies urinary urgency Musculoskeletal Reports joint swelling, Reports limited range of motion and Denies neck pain Integumentary/Breasts Denies pruritus, Denies erythema, Denies rash and Denies wounds Neurologic Denies confusion, Denies loss of vision and Denies weakness Psychiatric Denies anxiety, Denies confusion, Denies depression, Denies homicidal ideation and Denies suicidal ideation Endocrine Denies palpitations Hematologic/Lymphatic Denies easy bruising Allergic/Immunologic Denies wheezing [facility] Medical History Subluxation of left knee (Acute) Obstructive sleep apnea on CPAP (Chronic) Hypoventilation associated with obesity (Chronic) Morbid obesity due to excess calories (Chronic) Peripheral neuropathy (Chronic) Hx of myocardial infarction (Acute) Inpatient management required (Acute) Coronary artery disease (Acute) Diabetes (Acute) Surgical History History of heart artery stent (Acute) History of total knee arthroplasty (Acute) Status post left foot surgery (Acute) Family History Father No problems noted. Mother No problems noted. Social History household members: spouse Smoking Status: Never smoker Family History Father No problems noted. Mother No problems noted. Social History household members: spouse Smoking Status: Never smoker Exam Narrative Exam Narrative: GENERAL: 57-year-old male appears older than stated age, obviously uncomfortable in holding his left knee, the morbid obesity HEAD: Atraumatic. Normocephalic. No temporal or scalp tenderness. EYES: Pupils equal round and reactive. Extraocular motions intact. No scleral icterus. No injection or drainage. ENT: Nose without bleeding, purulent drainage or septal hematoma. Throat without erythema, tonsillar hypertrophy or exudate. Uvula midline. Airway patent. NECK: Trachea midline. No JVD or lymphadenopathy. Supple, nontender, no meningeal signs. CARDIOVASCULAR: Regular rate and rhythm without murmurs, gallops, or rubs. RESPIRATORY: Clear to auscultation. Breath sounds equal bilaterally. No wheezes, rales, or rhonchi. GASTROINTESTINAL: Abdomen soft, non-tender, nondistended. No hepato-splenomegaly, or palpable masses. No guarding. EXTREMITIES: Left knee causes significant pain with any palpation. There is limited erythema and no obvious effusion. Multiple scars as evidence of prior surgery. Unable to straighten knee secondary to mechanical obstruction and significant pain. left foot demonstrates swelling as well. no numbness, tingling or weakness. Cap refill less than 2 seconds.. BACK: Nontender without deformity or crepitance. No flank tenderness. NEURO: AOx3. SKIN: No rash or erythema. Initial Vital Signs Initial Vital Signs: Vital Signs Temperature 100.2 F H 06/04/18 21:25 Pulse Rate 103 H 06/04/18 21:25 Respiratory Rate 20 06/04/18 21:25 Blood Pressure 149/84 H 06/04/18 21:25 Pulse Oximetry 96 06/04/18 21:25 Course Orders Ordered: ED Orders 06/04/18 21:22 XR knee LT 3V Stat 06/04/18 21:53 XR foot LT min 3V Stat 06/04/18 23:28 Basic Metabolic Panel Stat Complete Blood Count AUTO DIFF Stat 06/05/18 00:25 Blood Culture Stat 06/05/18 01:59 Consult to Physician Routine 06/05/18 02:37 CPAP RT PROTOCOL 06/05/18 06:00 Complete Blood Count MAN DIFF Routine Comprehensive Metabolic Panel Routine Dextrose (D50w) 25 gm IV PRN PRN PRN Reason: Hypoglycemia Sodium Chloride (Normal Saline 0.9%) 1,000 mls @ 125 mls/hr IV CONT JB Last Admin: 06/05/18 02:50 Dose: 125 mls/hr Insulin Aspart (Novolog Flexpen) 52 unit SUBCUT BID JB Insulin Aspart (Novolog Flexpen) 0 unit SUBCUT Q6H JB; Protocol Morphine Sulfate (Morphine) 4 mg IV Q4HR PRN PRN Reason: Pain, Severe (7-10) Discontinued Medications Insulin Aspart (Novolog Flexpen) 0 unit SUBCUT ACHS JB; Protocol Last Admin: 06/05/18 03:07 Dose: Not Given Insulin Aspart (Novolog Flexpen) 8 unit SUBCUT Q6H JB; Protocol Last Admin: 06/05/18 03:07 Dose: Not Given Midazolam HCl (Versed) 10 mg NASAL NOW ONE Stop: 06/04/18 22:53 Last Admin: 06/04/18 23:04 Dose: 10 mg Morphine Sulfate (Morphine) 2 mg IV Q4HR PRN PRN Reason: Pain, Severe (7-10) Last Admin: 06/05/18 03:07 Dose: 2 mg Morphine Sulfate (Morphine) 2 mg IV NOW ONE Stop: 06/05/18 03:57 Last Admin: 06/05/18 04:17 Dose: 2 mg Reevaluation(s) Reevaluation #1: Patient given intranasal Versed in attempt to the relax patient is sufficiently to attempt reduction of the knee. There is no suggestion of dislocation. Versed given in attempt to relax not for procedural sedation. He remained awake but was slurring his words a bit. Patient is not a good candidate for procedural sedation in the emergency department given his complex medical history and large neck with advanced mallampati score Consultations Consultation #1: Upon receipt of x-rays I contacted Orthopedics. They reviewed imaging and suggested it was reasonable to attempt reduction in the emergency department but admission for unsuccessful attempt. Additionally, they request hospitalist consultation to help manage medical problems Consultation #2: Hospitalist has seen and evaluated patient in the emergency department Vital Signs - 8 hr 06/04/18 21:25 06/04/18 23:00 06/04/18 23:30 Temperature 100.2 F H Pulse Rate 103 H 99 H 100 H Respiratory Rate 20 18 17 Blood Pressure 149/84 H Blood Pressure [Left Arm] 145/80 H 138/75 Pulse Oximetry 96 96 95 06/05/18 00:30 06/05/18 01:15 Temperature 98.7 F 98.7 F Pulse Rate 99 H 96 H Respiratory Rate 17 20 Blood Pressure 143/79 H Blood Pressure [Left Arm] 113/59 L Pulse Oximetry 96 98 MDM - Extremity (Nontraumatic) Lab Data Result diagrams: 06/05/18 00:04 06/05/18 00:04 Lab Results 06/05/18 06/05/18 Range/Units 00:04 00:04 WBC 8.0 (4.5-11.0) X10^3/uL RBC 4.99 (4.5-5.9) X10^6/uL Hgb 15.6 (13.5-17.5) g/dL Hct 45.0 (41-53) % MCV 90.2 (80-100) fL MCH 31.3 (26-34) PG MCHC 34.6 (30-36) % RDW 14.8 (11.6-14.8) % Plt Count 144 L (150-400) X10^3/uL Neut % (Auto) 65.7 (50-75) % Lymph % (Auto) 21.3 L (25-40) % [place] % (Auto) 11.0 (3-14) % Eos % (Auto) 1.8 L (2-4) % Baso % (Auto) 0.2 (0-2) % Neut # (Auto) 5300 (4264-3842) /uL Lymph # (Auto) 1700 (6212-1730) /uL [place] # (Auto) 900 (0-900) /uL Eos # (Auto) 100 (0-450) /uL Baso # (Auto) 0 (0-100) /uL Sodium 137 (137-145) mmol/L Potassium 3.8 (3.4-5.1) mmol/L Chloride 102 (98-107) mmol/L Carbon Dioxide 26 (22-32) mmol/L BUN 10 (9-20) mg/dL Creatinine 0.70 (0.66-1.25) mg/dL Estimated GFR > 60.0 (>60) mL/min BUN/Creatinine Ratio 14.3 (6-22) Glucose 230 H (70-100) mg/dL Calcium 8.7 (8.4-10.2) mg/dL Point of Care Testing Glucose POC 162 Imaging Data Knee / Foot xray: Radiologist's impression: fall, foot and ankle pain TECHNIQUE: 3 views of the foot were acquired. COMPARISON: [facility], CR, XR FOOT 3+ VIEWS LEFT, 02/21/2018, 13:43. [facility], CR, XR FOOT 3+ VIEWS LEFT, 04/03/2018, 8:25. [facility], CR, XR FOOT 3 VIEWS WEIGHT BEARING LEFT, 05/15/2018, 13:01. FINDINGS: Bones: Extensive postsurgical changes are redemonstrated within the left foot. This includes a K wire traversing a fused 2nd proximal interphalangeal joint. This appears intact without associated fracture or suspicious lucencies. Within the mid foot, multiple fixation screws and plates are redemonstrated. There is a fracture of the proximal superior surgical staple laterally along the calcaneocuboid articulation which is similar to the prior study but new compared to older exams. There is also a fracture of the dorsal medial fixation plate at the level of the medial cuneiforms redemonstrated. There are progressively increased lucencies along the surgical hardware within the midfoot. There is also progressive increased sclerosis of the osseous structures in the midfoot. No definite acute fracture or dislocation. Soft tissues: There is generalized soft tissue edema in the midfoot and forefoot. There is a small tibiotalar joint effusion. The Achilles tendon appears intact with small calcifications suggestive of calcific tendinitis or dystrophic calcifications. IMPRESSION: 1. No definite acute fracture or dislocation. 2. Extensive post surgical changes redemonstrated within the midfoot with progressively increased lucency along the surgical hardware compared to the prior studies compatible with loosening or infection. 3. Fractures of the lateral surgical staple and medial fixation plate in the midfoot redemonstrated. 4. Progressively increased sclerosis within the midfoot osseous structures may represent progressive bony fusion but given the lucency along the hardware may also reflect osteomyelitis. Further evaluation may be obtained with MRI if clinically indicated. Dictated by: Ayan Crespo M.D. on 06/04/2018 at 22:17 Approved by: Ayan Crespo M.D. on 06/04/2018 at 22:[address] [address] XRay Report Signed Patient: Jamir Garcia KMR#: [id number] : 9Acct:[id number] Age/Sex: 57 / MDate of Service: 06/04/18 Loc: ED Accession Number: [id number] Procedure: XR knee LT 3V Ordering Provider: Jamel Carroll D.O. PROCEDURE: XR KNEE LT 3V INDICATIONS: injury, unable to straighten TECHNIQUE: 3 views of the knee were acquired. COMPARISON: [facility], CR, XR KNEE LT 1TO2V, 05/03/2018, 17:53. [facility], CR, XR KNEE LT 3V, 05/28/2018, 16:44. FINDINGS: Bones: Evaluation limited by flexed position due to patient's inability to extend knee. A left knee prosthesis is redemonstrated. No definite fracture or new suspicious periprosthetic lucencies. Soft tissues: Evaluation for joint effusion is limited. No suspicious soft tissue calcifications. IMPRESSION: 1. Limited study due to flexion demonstrates no definite fracture or dislocation. Dictated by: Ayan Crespo M.D. on 06/04/2018 at 21:46 Approved by: Ayan Crespo M.D. on 06/04/2018 at 21:48 Discharge Plan Departure Patient Disposition: Admitted as Observation Clinical Impression: Knee subluxation Qualifiers: Encounter type: subsequent encounter Laterality: left Qualified Code(s): S83.102D - Unspecified subluxation of left knee, subsequent encounter Discharge Date/Time: 06/05/18 01:10 Interventions: ED Discharge Assessment Last Done: 06/05/18 01:10 Admit Date/Time: 06/04/18 23:58 Admit Provider: Radha Salazar
[2018-06-04 21:25] VITALS: BP 149/84; PULSE 103; RESP 20; TEMP 37.9; O2SAT 96; BMI 42.0
--- NOTE | 2018-06-04 21:53 | DI.RAD.S_ITS ---
PROCEDURE: XR FOOT LT MIN 3V INDICATIONS: fall, foot and ankle pain TECHNIQUE: 3 views of the foot were acquired. COMPARISON: [facility], CR, XR FOOT 3+ VIEWS LEFT, 02/21/2018, 13:43. [facility], CR, XR FOOT 3+ VIEWS LEFT, 04/03/2018, 8:25. [facility], CR, XR FOOT 3 VIEWS WEIGHT BEARING LEFT, 05/15/2018, 13:01. FINDINGS: Bones: Extensive postsurgical changes are redemonstrated within the left foot. This includes a K wire traversing a fused 2nd proximal interphalangeal joint. This appears intact without associated fracture or suspicious lucencies. Within the mid foot, multiple fixation screws and plates are redemonstrated. There is a fracture of the proximal superior surgical staple laterally along the calcaneocuboid articulation which is similar to the prior study but new compared to older exams. There is also a fracture of the dorsal medial fixation plate at the level of the medial cuneiforms redemonstrated. There are progressively increased lucencies along the surgical hardware within the midfoot. There is also progressive increased sclerosis of the osseous structures in the midfoot. No definite acute fracture or dislocation. Soft tissues: There is generalized soft tissue edema in the midfoot and forefoot. There is a small tibiotalar joint effusion. The Achilles tendon appears intact with small calcifications suggestive of calcific tendinitis or dystrophic calcifications. IMPRESSION: 1. No definite acute fracture or dislocation. 2. Extensive post surgical changes redemonstrated within the midfoot with progressively increased lucency along the surgical hardware compared to the prior studies compatible with loosening or infection. 3. Fractures of the lateral surgical staple and medial fixation plate in the midfoot redemonstrated. 4. Progressively increased sclerosis within the midfoot osseous structures may represent progressive bony fusion but given the lucency along the hardware may also reflect osteomyelitis. Further evaluation may be obtained with MRI if clinically indicated. Dictated by: Ayan Crespo M.D. on 06/04/2018 at 22:17 Approved by: Ayan Crespo M.D. on 06/04/2018 at 22:27
--- NOTE | 2018-06-04 22:04 | PC.NURSE ---
Addendum entered by Liberty Cortez R.N. 06/04/18 22:06: Patient asking for pain medications. Provider notified. Patient denies need for ice pack. Original Note: Cannot bend knee. Unable to obtain xray of ankle, due to inability to extend knee. Foot xrays obtained.
[2018-06-04 23:00] VITALS: BP 145/80; PULSE 99; RESP 18; O2SAT 96
[2018-06-04] MEDS: MIDAZOLAM 5 MG/ML VIAL 10 MG NASAL (23:04)
[2018-06-04 23:30] VITALS: BP 138/75; PULSE 100; RESP 17; O2SAT 95
[2018-06-05] VITALS (13 sets, daily range): BP systolic 101–143; BP diastolic 59–91; PULSE 86–99; RESP 12–20; TEMP 36.7–37.3; O2SAT 93–99; BMI 42.0
--- NOTE | 2018-06-05 | DI.RAD.S_ITS ---
PROCEDURE: XR KNEE RT 1TO2V INDICATIONS: contralateral comparision TECHNIQUE: 1 views of the knee were acquired. COMPARISON: [facility], CR, XR KNEE LT 1TO2V, 05/03/2018, 17:53. [facility], CR, XR KNEE LT 3V, 06/04/2018, 21:30. [facility], CR, XR KNEE LT 3V, 05/28/2018, 16:44. FINDINGS: 1 view of the right knee demonstrates postoperative changes related to a total right knee arthroplasty. No periprosthetic fractures or lucencies are evident. Irregularity at the inferior margin of the patella is noted, which is not well characterized. Prominent patellar soft tissue thickening is noted. IMPRESSION: 1. Right knee arthroplasty. No periprosthetic lucencies. 2. Prominent patellar tendon edema/thickening may represent tendinopathy. 3. Irregularity at the inferior tip of the patella appears chronic, given sclerotic margins. Dictated by: Stevo Traylor M.D. on 06/05/2018 at 11:12 Approved by: Stevo Traylor M.D. on 06/05/2018 at 11:14
[2018-06-05 00:25] LABS: Add Manual Diff / Slide Review NO; Basophils Absolute Auto 0 /uL (0-100); Basophils Percent Auto 0.2 % (0-2); Eosinophils Absolute Auto 100 /uL (0-450); Eosinophils Percent Auto 1.8 % (2-4); Hemoglobin 15.6 g/dL (13.5-17.5); Lymphocytes Absolute Auto 1700 /uL (1100-4500); Lymphocytes Percent Auto 21.3 % (25-40); Mean Corpuscular HGB Conc 34.6 % (30-36); Mean Corpuscular Hemoglobin 31.3 PG (26-34); Mean Corpuscular Volume 90.2 fL (80-100); Monocytes Absolute Auto 900 /uL (0-900); Neutrophils Absolute Auto 5300 /uL (1500-7000); Neutrophils Percent Auto 65.7 % (50-75); Platelet Count 144 X10^3/uL (150-400); Red Blood Cell Count 4.99 X10^6/uL (4.5-5.9); Red Cell Distribution Width 14.8 % (11.6-14.8)
[2018-06-05 00:45] LABS: BUN Creatinine Ratio 14.3 (6-22); Blood Urea Nitrogen 10 mg/dL (9-20); Calcium 8.7 mg/dL (8.4-10.2); Carbon Dioxide 26 mmol/L (22-32); Chloride 102 mmol/L (98-107); Estimated Glomerular Filt Rate > 60.0 mL/min (>60); Glucose 230 mg/dL (70-100); HEMOLYSIS 21 (0-50); Potassium 3.8 mmol/L (3.4-5.1); Sodium 137 mmol/L (137-145)
--- NOTE | 2018-06-05 02:25 | P.CONS_ITS ---
History of Present Illness Date Patient Seen: 06/05/18 Time Patient Seen: 01:30 Chief complaint: GLF Reason for consult: Managment of diabetes Requesting provider: Radha Salazar Narrative: Jamir Garcia is a 57-year-old morbidly obese male who has had bilateral knee replacements, diabetes type 2, hyperlipidemia, essential hypertension, anxiety and depression presented to the emergency department with an acute subluxation of the left knee. He has a history of that knee being replaced and apparently the hardware has broken loose and causes instability in that knee per Dr. Carroll. He attempted to provide procedural sedation to the patient but was unable to manually reduce the subluxation. He has discussed the case with Dr. Almaguer who agrees to this admit the patient but has requested that the hospitalist service consult on the patient's medical problems. It is a difficult to understand the patient's pronunciation. He states that the left knee has been giving him a hard time for quite a while. 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 He does use insulin he stated that he knew had a carb count however in reviewing his diet with him it was clear that he does not adhere to a reduced carbohydrate diet. He states that he had cereal in the morning, burritos in the afternoon, tamales and chili for dinner. [facility] Medical History (Updated 06/05/18 @ 02:48 by ANI Melendez) Subluxation of left knee (Acute) Obstructive sleep apnea on CPAP (Chronic) Hypoventilation associated with obesity (Chronic) Morbid obesity due to excess calories (Chronic) Peripheral neuropathy (Chronic) Hx of myocardial infarction (Acute) Inpatient management required (Acute) Coronary artery disease (Acute) Diabetes (Acute) Surgical History History of heart artery stent (Acute) History of total knee arthroplasty (Acute) Status post left foot surgery (Acute) Social History household members: spouse Smoking Status: Never smoker Family History Father No problems noted. Mother No problems noted. Social History household members: spouse Smoking Status: Never smoker Meds Home Medications Medication Instructions Recorded Confirmed Type aspirin 81 mg PO QDAY #0 03/15/17 06/05/18 History atorvastatin [Lipitor] 80 mg PO HS #0 03/15/17 06/05/18 History insulin asp prt-insulin aspart 45 units SQ TIDCC #0 03/15/17 11/15/17 History [Novolog Mix 70-30FlexPen U-100] insulin glargine [Lantus U-100 70 unit SQ HS #0 03/15/17 11/15/17 History Insulin] omega 9-hcm-zxn-fish oil [Fish Oil] 1,000 mg PO TID #0 03/15/17 11/15/17 History pregabalin [Lyrica] 225 mg PO BID #0 03/15/17 11/15/17 History escitalopram oxalate 20 mg PO DAILY 11/15/17 11/15/17 History liraglutide [Victoza 2-Raman] 1.8 mg SUBCUT BEDTIME 11/15/17 11/15/17 History hydrocodone-acetaminophen [[place]] 1 tab PO Q4H PRN #15 tab 05/03/18 Rx methocarbamol [Robaxin-750] 750 mg PO QID #30 tab 05/08/18 Rx pantoprazole 40 mg PO BID 06/05/18 06/05/18 History Allergies Allergy/AdvReac Type Severity Reaction Status Date / Time meperidine [MEPERIDINE] Allergy Severe SHORTNESS Verified 05/28/18 17:11 OF BREATH hydroxyzine [HYDROXYZINE] Allergy Mild RASH Verified 05/28/18 17:11 Review of Systems Review of Systems Patient denies shortness of breath, chest pain, nausea or vomiting, abdominal pain, dysuria, diarrhea or constipation. States the rash on his face is from his CPAP mask. Exam Vital Signs (past 8 hours): - 06/04/18 21:25 06/04/18 23:00 06/04/18 23:30 Temperature 100.2 F H Pulse Rate 103 H 99 H 100 H Respiratory Rate 20 18 17 Blood Pressure 149/84 H Blood Pressure [Left Arm] 145/80 H 138/75 Pulse Oximetry 96 96 95 06/05/18 00:30 06/05/18 01:15 Temperature 98.7 F 98.7 F Pulse Rate 99 H 96 H Respiratory Rate 17 20 Blood Pressure 143/79 H Blood Pressure [Left Arm] 113/59 L Pulse Oximetry 96 98 Oxygen Delivery Method Room Air Narrative Exam Narrative: General: Alert oriented morbidly obese 57-year-old male appears to be mildly in pain. Cushionoid appearing. HEENT: Head is normocephalic atraumatic, oral and nasal mucosa are pink and moist Eyes: Conjunctiva is clear sclera nonicteric Neck: Supple, no JVD Respirations: Lung sounds are clear to auscultation bilaterally no wheezes or rhonchi CV: Regular rate and rhythm no murmur or rubs Abdomen: Obese soft and nontender Skin: He has a candidal rash that extends around the outline of wear his CPAP mask would likely be Neuro: Alert and oriented x3 with no focal deficits. He is alert but lethargic likely due to the medications that were administered to him Extremities: He has healed surgical scars bilaterally on both knees, and healed surgical scars on his left ankle medially and laterally. His left knee is swollen. Negative Danna sign Psych: Normal mood and affect Objective Labs Result Diagrams: 06/05/18 00:04 06/05/18 00:04 Labs: Laboratory Results - last 24 hr 06/05/18 06/05/18 00:04 00:04 WBC 8.0 RBC 4.99 Hgb 15.6 Hct 45.0 MCV 90.2 MCH 31.3 MCHC 34.6 RDW 14.8 Plt Count 144 L Neut % (Auto) 65.7 Lymph % (Auto) 21.3 L [place] % (Auto) 11.0 Eos % (Auto) 1.8 L Baso % (Auto) 0.2 Neut # (Auto) 5300 Lymph # (Auto) 1700 [place] # (Auto) 900 Eos # (Auto) 100 Baso # (Auto) 0 Sodium 137 Potassium 3.8 Chloride 102 Carbon Dioxide 26 BUN 10 Creatinine 0.70 Estimated GFR > 60.0 BUN/Creatinine Ratio 14.3 Glucose 230 H Calcium 8.7 Assessment & Plan (1) Subluxation of left knee: Problem details: Dr. Salazar to take the patient to the OR tomorrow NPO Current visit: Yes Status: Acute (2) Diabetes mellitus type 2 in obese: Problem details: He is initiated on basal insulin and bolus insulin q.6 hours Current visit: Yes Status: Acute (3) Obstructive sleep apnea on CPAP: Problem details: Patient may use own machine if available otherwise he will need to be set up with one. RT consult has been ordered Current visit: Yes Status: Chronic (4) Hypoventilation associated with obesity: Problem details: Will be followed by anesthesia for this Current visit: Yes Status: Chronic (5) Knee subluxation: Problem details: Will be followed by Dr. Salazar for this Qualifiers: Encounter type: subsequent encounter Laterality: left Qualified Code(s): S83.102D - Unspecified subluxation of left knee, subsequent encounter Current visit: Yes Status: Acute (6) Inpatient admission status: Problem details: Patient is admitted under the surgical service as an inpatient. FEN: IV saline lock, NPO, CMP in the a.m. Code status: Full code DVT prophylaxis: Deferred until after surgery. Discussed with: Dr. Carroll Consult time: 60 minutes We appreciate the opportunity to consult on your patient. Current visit: Yes Status: Acute
[2018-06-05] MEDS: SODIUM CHLORIDE 0.9% 1,000 ML 125 ML IV ×2 (02:50→10:16)
[2018-06-05] MEDS: MORPHINE 2 MG/ML INJ IV ×2 (03:07→04:17)
--- NOTE | 2018-06-05 04:41 | PC.NURSE ---
Received safe hand off from Lexi MCKEON, Pt came into ER w/subluxation of L Knee. Pt is A&ox3, 8/10 pain level. Morphine ordered 2mg 4hrs PRN. Pt on R.A 95%. Pt has 147/79 BP. Pt continues to have pain control issues. Per Linda LAW, gave 2mg Morphine now at 0400, and changed the order to 4 mg Morphine every 4 hrs PRN. Pt is wearing CPAP. Pt is a diabetic, and BS was 162 @0226, no coverage given. Pt is NPO for surgery.
[2018-06-05 06:11] LABS: Hematocrit 43.1 % (41-53); Hemoglobin 14.8 g/dL (13.5-17.5); Mean Corpuscular HGB Conc 34.3 % (30-36); Mean Corpuscular Hemoglobin 31.1 PG (26-34); Mean Corpuscular Volume 90.7 fL (80-100); Platelet Count 143 X10^3/uL (150-400); Red Blood Cell Count 4.75 X10^6/uL (4.5-5.9); Red Cell Distribution Width 15.3 % (11.6-14.8); White Blood Cell Count 8.7 X10^3/uL (4.5-11.0)
[2018-06-05 06:17] LABS: Alanine Aminotransferase 62 IU/L (21-72); Albumin 3.5 g/dL (3.5-5.0); Albumin Globulin Ratio 1.2 (1.0-2.8); Alkaline Phosphatase 188 U/L (38-126); Aspartate Aminotransferase 57 IU/L (17-59); BUN Creatinine Ratio 14.3 (6-22); Bilirubin Total 0.8 mg/dL (0.2-1.3); Blood Urea Nitrogen 10 mg/dL (9-20); Calcium 8.4 mg/dL (8.4-10.2); Carbon Dioxide 26 mmol/L (22-32); Chloride 104 mmol/L (98-107); Estimated Glomerular Filt Rate > 60.0 mL/min (>60); Globulin 2.9 g/dL (1.7-4.1); Glucose 148 mg/dL (70-100); HEMOLYSIS < 15 (0-50); Potassium 3.8 mmol/L (3.4-5.1); Sodium 138 mmol/L (137-145); Total Protein 6.4 g/dL (6.3-8.2)
[2018-06-05] MEDS: INSULIN ASPART 100 UNIT/ML INSULN PEN SUBCUT ×2 (06:22→12:06)
[2018-06-05 06:38] LABS: Neutrophils Absolute Manual 4437 /uL (3000-5900); Total Cells Counted 100
[2018-06-05 06:39] LABS: Anisocytosis 1+; Platelet Estimate Decreased on smear
[2018-06-05] MEDS: MORPHINE 4 MG/ML INJ IV ×3 (06:56→14:03)
--- NOTE | 2018-06-05 09:17 | CM.DANOTE ---
DCP: Case received, EMR reviewed and met with patient. Introduced self and role. DCP template completed with information currently available. Patient is a 57 year old male who admitted yesterday evening to the care of the hospitalist team. PCP: Provider is at [facility]. Payer: confirmed: Medicare/[employer]. Patient came to hospital via ambulance secondary to a ground level fall. Stated, his knee just gave out. Patient has had orthopedic history and prior surgeries. Met with patient in room. Alert and oriented. He stated that they will be doing surgery today, he is NPO, due to having to replace a plastic disc in his knee. Asked him how he gets around at home. He stated that he has no cane or walker, just gets around carefully. He is driving as well. He stated that he has no stairs at home. Lives with his spouse, Vickie, in [place]. He is retired [employer], and sees providers at [facility]. He also stated that he has gone to physical therapy outpatient before. P: DCP to follow closely. Patient will be having surgery today. Will consult with physical therapy afterward to assist in discharge planning. Angelita Maurer RN/Saw Handle Assembler
--- NOTE | 2018-06-05 10:26 | P.PN_ITS ---
Subjective Date Patient Seen: 06/05/18 Interval history: Jamir Garcia is a 57-year-old morbidly obese male who has had bilateral knee replacements, diabetes type 2, hyperlipidemia, essential hyperte nsion, anxiety and depression presented to the emergency department with an acute subluxation of the left knee. Hospital medicine team was consulted for diabetic management. The patient is resting in bed comfortably and in no acute distress. he endorses some pain of left knee plus 8/10 in severity. It does not radiate. He has no other complaints and denies headache, cough, shortness of breath, chest pain, abdominal pain, nausea, vomiting, fever, chills, dysuria, diarrhea or constipation. He is voiding and eliminating without difficulty. He is eager to have surgery and be discharged. He anticipates playing golf in the next several weeks after surgery. Exam Vital Signs (past 8 hours): - 06/05/18 05:30 06/05/18 08:00 Temperature 98.7 F 99.2 F Pulse Rate 91 H 92 H Respiratory Rate 17 18 Blood Pressure 128/74 125/75 Pulse Oximetry 97 96 Oxygen Delivery Method Room Air Oxygen Flow Rate 0 Narrative Exam Narrative: General: Middle-aged male sitting in bed and in no acute distress, appears older than stated age well-developed, well-nourished, appropriately interactive. HEENT: Normocephalic, atraumatic. External ears without defect. Pupils equal, round, and reactive to light. Anicteric sclerae, moist conjunctivae, and no lid lag. Oropharynx free of erythema and cobble stoning with moist mucosa. Dry flakey skin. Neck: Supple with full range of motion. No jugular venous distension. No bruits. No lymphadenopathy or thyromegaly. Cardiovascular: Regular rate and rhythm without murmurs, rubs, or gallops appreciated Pulmonary: Clear to auscultation bilaterally without crackles, wheezes, or rhonchi. Normal respiratory effort with no use of accessory muscles. Abdomen: Soft, bowel sounds present, nontender, nondistended. No hepatosplenomegaly or masses appreciated. Extremities: No clubbing, cyanosis, or edema. Left Charcot foot. Left knee subluxed and in flexed position without tenderness to palpation. Right lower extremity without abnormalities. Skin: Normal temperature, turgor, and texture; no rash, ulcers, or subcutaneous nodules appreciated. Neurological: Cranial nerves grossly intact. Psychiatric: Normal mood and affect. Alert and oriented to person, place, and time. Objective Labs Result Diagrams: 06/05/18 05:03 06/05/18 05:03 Labs: Laboratory Results - last 24 hr 06/05/18 06/05/18 06/05/18 00:04 00:04 05:03 WBC 8.0 8.7 RBC 4.99 4.75 Hgb 15.6 14.8 Hct 45.0 43.1 MCV 90.2 90.7 MCH 31.3 31.1 MCHC 34.6 34.3 RDW 14.8 15.3 H Plt Count 144 L 143 L Neut % (Auto) 65.7 Lymph % (Auto) 21.3 L Mathews % (Auto) 11.0 Eos % (Auto) 1.8 L Baso % (Auto) 0.2 Neut # (Auto) 5300 Lymph # (Auto) 1700 Mathews # (Auto) 900 Eos # (Auto) 100 Baso # (Auto) 0 Total Counted 100 Seg Neutrophils % 42.0 Band Neutrophils % 9.0 H Lymphocytes % (Manual) 37.0 Monocytes % (Manual) 9.0 Eosinophils % (Manual) 3.0 Neutrophils # (Manual) 4437 Platelet Estimate Decreased on smear RBC Morphology See below Anisocytosis 1+ H Sodium 137 Potassium 3.8 Chloride 102 Carbon Dioxide 26 BUN 10 Creatinine 0.70 Estimated GFR > 60.0 BUN/Creatinine Ratio 14.3 Glucose 230 H Calcium 8.7 Total Bilirubin AST ALT Alkaline Phosphatase Total Protein Albumin Globulin Albumin/Globulin Ratio 06/05/18 05:03 WBC RBC Hgb Hct MCV MCH MCHC RDW Plt Count Neut % (Auto) Lymph % (Auto) Mathews % (Auto) Eos % (Auto) Baso % (Auto) Neut # (Auto) Lymph # (Auto) Mathews # (Auto) Eos # (Auto) Baso # (Auto) Total Counted Seg Neutrophils % Band Neutrophils % Lymphocytes % (Manual) Monocytes % (Manual) Eosinophils % (Manual) Neutrophils # (Manual) Platelet Estimate RBC Morphology Anisocytosis Sodium 138 Potassium 3.8 Chloride 104 Carbon Dioxide 26 BUN 10 Creatinine 0.70 Estimated GFR > 60.0 BUN/Creatinine Ratio 14.3 Glucose 148 H Calcium 8.4 Total Bilirubin 0.8 AST 57 ALT 62 Alkaline Phosphatase 188 H Total Protein 6.4 Albumin 3.5 Globulin 2.9 Albumin/Globulin Ratio 1.2 Assessment & Plan Assessment & Plan narrative: Jamir Garcia is a 57-year-old morbidly obese male who has had bilateral knee replacements, diabetes type 2, hyperlipidemia, essential hypertension, anxiety and depression presented to the emergency department with an acute subluxation of the left knee. Hospital medicine team was consulted for diabetic management. 1. Acute subluxation of left knee after ground level fall, present on admission. Active. -Patient is NPO for surgical management today. -Lab work performed and EKG pending. -Continue pain and pre and post op management per Ortho. 2. Diabetes mellitus type 2, insulin using, present on admission. Active. -patient reports last hemoglobin A1c was 8.4% recently. Ordered repeat hemoglobin A1c, pending. -Will keep patient NPO and on correctional scale insulin Q 6 hours until after surgery then will restart long-acting Lantus likely at half normal dose and restart preprandial insulin 60 units before meals tomorrow morning with breakfast and victoza tomorrow evening. -Continue Lyrica 225 mg twice daily and methocarbamol 750 mg 4 times daily as needed for neuropathic/muscular pain. -Patient does not believe he is on NPH and NovoLog only. 3. Obstructive sleep apnea on CPAP and OHS, chronic, present on admission. Stable. -Patient may use own machine if available otherwise he will need to be set up with one. Ordered RT evaluation treatment for CPAP protocol. -Will be followed for OHS by Anesthesiology. 4. Hyperlipidemia, chronic, present on admission. Stable. -Continue atorvastatin 80 mg daily at bedtime. Will need to be restarted on aspirin per Ortho. 5. Depression, chronic, present on admission. Stable. -Continue escitalopram 20 mg daily. 6. GERD, chronic, present on admission. Stable. -Continue pantoprazole 40 mg twice daily. Code status: Full code DVT prophylaxis: Deferred until after surgery and will likely be with aspirin only. Thank you for consulting our services. We will continue to follow along with you. Quality VTE Deep Vein Thrombosis/Pulmonary Embolism Present on Admission: No
[2018-06-05 10:57] LABS: Hemoglobin A1C% w Est Avg Glu 9.5 % (4.0-6.0)
--- NOTE | 2018-06-05 14:26 | PC.NURSE ---
Addendum entered by Lyn Spence R.N. 06/05/18 14:51: SURG - Dr. Castillo in and consent for surg signed, pacu arrive, ivf saline locked, cpap is hosp and pacu aware, pt did not bring his from home. Original Note: AM NOTE - awakens easily, wears cpap when dozing, RA 96l knee contracted, states pain 8/10, discussed pain medications and given 4mg iv morphine at 4 hour intervals, Dr. Castillo in this am and surg will be planned for this afternoon when the parts for procedure are available, discussed cbg with Dr. Mathew and pt describes taking only novalog short acting insulin 60 units tid and 60 units lantus at hs, states does not take a novalog 70/30, Dr. Mathew dc'd the bid novalog order and while npo will be given SS, rechecked his insulin at 1000 - 159 and again 1200 - 189 and given 2 units per SS, Dr. Mathew plans on restarting lantus at lower dose post surgery and will adjust as pt starts po.
--- NOTE | 2018-06-05 15:17 | SUR.OPER ---
Supine on padded OR bed, head on pillow, arms secured on padded arm boards at <90 degrees abduction, legs uncrossed, safety belt at thigh, tape over blanket over lower legs.
--- NOTE | 2018-06-05 15:19 | PM.PREOP ---
Pre-operative Note Interval Note History & Physical reviewed/Exam performed by Physician: Yes Changes to H&P: Yes H&P completed within 30 days and has changed as indicated here:: fall with repeat left knee dislocation admitted yesterday, no new medical complaints
--- NOTE | 2018-06-05 15:22 | P.OP_ITS ---
Operative Date/Time/Diagnoses Date of procedure: 06/05/18 Time of procedure: 15:01 Pre-op diagnosis: left knee dislocation Post-op diagnosis: same Procedure & Clinicians Procedure: left knee closed reduction Same procedure as scheduled: Yes Indications: This is a 57-year-old gentleman who has a history of recurrent left knee instability with history of a total knee arthroplasty. he fell landed on his knee and came in with it locked in a hyperflexed position. they are unable to reduce it in the emergency room and orthopedic consultation was requested. He is brought to the operating room for a closed reduction. Surgeon: Keyana Castillo Click Yes if Unassisted: Yes Anesthesia Type: General and Sedation Operative Notes Findings: Knee reduced with gentle traction and extension, slight hyperextension at 0?, mild instability at 45?, increased instability in high flexion Closure Type: not applicable Specimen(s): none sent Estimated Blood Loss (mL): 0 Blood products transfused: none Procedure in detail: Patient was brought to the operating room. He under went the induction of anesthesia. Time-out was performed. his knee was carefully reduced by a combination of gentle traction and hyperextension. It came to full extension without difficulty. His overall stability was tested was noted that he had global laxity but slightly more laxity in high flexion. he was placed in a knee immobilizer. he tolerated the procedure well. Complications: none Condition: stable Disposition: observation Plan for aftercare: Patient will be weight-bearing as tolerated on the left lower extremity. We placed him in a knee immobilizer. exchange polyethylene components are coming for revision of his polyethylene which she we have t entatively schedule for Saturday.
--- NOTE | 2018-06-05 15:25 | SUR.OPER ---
LEFT KNEE PLACED IN BRACE AFTER RELOCATION
--- NOTE | 2018-06-05 18:55 | PC.NURSE ---
discharge note- Patient discharged home. reviewed discharged instructiions with patient and signed. personal items and medications retrieved from safe. obtained a sweatshirt and flip flops from housekeeping for patient since all he had to wear home were short gym shorts. called taxi per patient request for ride back to [place]. TANK STAVE ASSEMBLER took patient to ER entrance via wheelchair with all personal belongings to meeting waiting taxi/.
== END 2018-06-05 18:55 | disposition home or self-care (01) | DRG 560 ==
LOC: ED 23:42 → AC 23:59
PROVIDERS: Internal Medicine; Nurse Practitioner Family; Orthopaedic Surgery; Admitting Provider Orthopaedic Surgery Orthopaedic Surgery of the Spine; Emergency Provider Emergency Medicine; Visit Provider Orthopaedic Surgery Orthopaedic Surgery of the Spine
PROC: 0SWDXJZ Revision of Synthetic Substitute in Left Knee Joint, External Approach (ICD-10-PCS; principal; 2018-06-05 19:00)
DX: T84.023A Instability of internal left knee prosthesis, initial encounter (principal); Z68.41 Body mass index [BMI] 40.0-44.9, adult; E66.01 Morbid (severe) obesity due to excess calories; G47.33 Obstructive sleep apnea (adult) (pediatric); I25.10 Atherosclerotic heart disease of native coronary artery without angina pectoris; E11.9 Type 2 diabetes mellitus without complications
CPT/HCPCS: 36415; 36591; 73560; 73562; 73630; 80048; 80053; 82962; 83036; 83735; 85025; 87040; 93005; 94660; 94762; 99283; 99284; G0378; J2250; J2270; J2704

== ENCOUNTER 2018-06-15 03:40 | Emergency (ER) | payer MEDICARE, OTHER, SELFPAY ==
[2018-06-05 01:35] VITALS: BMI 42.0
[2018-06-15 03:46] VITALS: BP 160/78; PULSE 104; RESP 20; TEMP 37.1; O2SAT 96; BMI 40.8
--- NOTE | 2018-06-15 03:55 | ED.GENADULT ---
HPI - General Adult General Chief complaint: Extremity Problem,Nontraumatic Stated complaint: locked up knee Time Seen by Provider: 06/15/18 03:45 Source: patient Mode of arrival: EMS Limitations: no limitations History of Present Illness HPI narrative: Patient is a 57-year-old male here for evaluation of a painful flexed locked left knee. He has been seen here in the emergency department multiple times for this. It has been reduced here in the emergency department however his last visit he needed to be taken to the operating room. He is waiting to have his left knee revised. He stated that this evening he took his knee immobilizer off to take a shower. He states he did have his knee bent to put on topical lidocaine gel when he states that it suddenly became locked. It is the same pain that he has had in the past is on the front of his knee. He arrived by EMS for evaluation. Related Data Home Medications Medication Instructions Recorded Confirmed Lantus U-100 Insulin 60 unit SQ HS #0 03/15/17 06/06/18 Lyrica 225 mg PO BID #0 03/15/17 06/06/18 aspirin 81 mg PO QDAY #0 03/15/17 06/06/18 atorvastatin [Lipitor] 80 mg PO HS #0 03/15/17 06/06/18 omega 1-slf-ghs-fish oil [Fish Oil] 1,000 mg PO TID #0 03/15/17 06/06/18 Victoza 2-Raman 1.8 mg SUBCUT BEDTIME 11/15/17 06/06/18 escitalopram oxalate 20 mg PO DAILY 11/15/17 06/06/18 pantoprazole 40 mg PO BID 06/05/18 06/06/18 Previous Rx's Medication Instructions Recorded hydrocodone-acetaminophen [L[place]aster] 1 tab PO Q4H PRN #15 tab 05/03/18 methocarbamol [Robaxin-750] 750 mg PO QID #30 tab 05/08/18 Allergies Allergy/AdvReac Type Severity Reaction Status Date / Time meperidine [MEPERIDINE] Allergy Severe SHORTNESS Verified 05/28/18 17:11 OF BREATH hydroxyzine [HYDROXYZINE] Allergy Mild RASH Verified 05/28/18 17:11 Review of Systems Constitutional Denies headache(s) ENT Ears, Nose, Mouth, and Throat: Denies headache(s) Cardiovascular Denies chest pain and Denies dyspnea Respiratory Denies dyspnea Gastrointestinal Gastrointestinal: Denies abdominal pain Musculoskeletal Denies myalgias and Reports arthralgias (Left knee pain) Integumentary/Breasts Denies rash Neurologic Denies headache(s) Hematologic/Lymphatic Denies easy bleeding and Denies easy bruising [facility] Medical History Subluxation of left knee (Acute) Obstructive sleep apnea on CPAP (Chronic) Hypoventilation associated with obesity (Chronic) Morbid obesity due to excess calories (Chronic) Peripheral neuropathy (Chronic) Anxiety (Acute 06/05/18) Coronary artery disease (Acute) Depression (Acute) Diabetes (Acute) Hx of myocardial infarction (Acute) Inpatient management required (Acute) Subluxation of left knee (Acute) Surgical History (Updated 06/06/18 @ 09:37 by Vickie Gaffney RN) History of ankle surgery (Acute) History of arthroplasty of left knee (Acute 10/12/10) History of arthroplasty of right knee (Acute ~07/2014) History of cardiac cath (Acute 04/29/17) History of heart artery stent (Acute ~2011) Hx of appendectomy (Acute) Hx of foot surgery (Acute) Hx of shoulder surgery (Acute) Hx of tonsillectomy (Acute) Status post left foot surgery (Acute) Family History Father No problems noted. Mother No problems noted. Social History household members: spouse Smoking Status: Former smoker alcohol intake: current Social History household members: spouse Smoking Status: Former smoker alcohol intake: current Exam Initial Vital Signs Initial Vital Signs: Vital Signs Temperature 98.8 F 06/15/18 03:46 Pulse Rate 104 H 06/15/18 03:46 Respiratory Rate 20 06/15/18 03:46 Blood Pressure 160/78 H 06/15/18 03:46 Pulse Oximetry 96 06/15/18 03:46 Const General: cooperative, comfortable, well developed, well groomed and No acute distress Orientation: alert, awake and oriented x3 HENMT Head: normal to inspection and normocephalic Resp Effort & Inspection: normal respiratory effort Cardio Rate: regular rate and tachycardic Skin Lesions: no lesions Rashes: no rashes Extrem General: capillary refill normal Other: Left knee bent approximately 100?. Psych Appearance: grossly normal and well kempt Course Orders Ordered: Discontinued Medications Hydromorphone HCl (Dilaudid) 2 mg IM NOW ONE Stop: 06/15/18 04:04 Last Admin: 06/15/18 04:12 Dose: 2 mg Vital Signs - 8 hr 06/15/18 03:46 Temperature 98.8 F Pulse Rate 104 H Respiratory Rate 20 Blood Pressure 160/78 H Pulse Oximetry 96 Medical Decision Making MDM Narrative Medical decision making narrative: Discuss case with Dr. Castillo who is also his orthopedic surgeon who states that his knee has always been easily reduced when he has been sedated. She states that there is not a structural emergency with the knee. He was given 2 mg of Dilaudid IM and with constant pressure was able to straighten his knee out. He was placed in a knee immobilizer. He was instructed that he needed to keep his knee immobilizer on at all times until he is seen by Orthopedics. Will have him follow up with his primary doctor also Orthopedics. Discharge Plan Departure Patient Disposition: Home Clinical Impression: Knee subluxation Activity Restrictions/Additional Instructions: You need to keep this knee immobilizer on at all times or if you take it off to shower you need to keep your knee straight at all times. Contact your primary doctor and also Dr. Castillo for further evaluation. Prescriptions: No Action atorvastatin [Lipitor] 80 MG tablet 80 mg PO HS Qty: 0 RF: 0 Lyrica 225 MG capsule 225 mg PO BID Qty: 0 RF: 0 aspirin 81 MG tablet,delayed release (DR/EC) 81 mg PO QDAY Qty: 0 RF: 0 omega 2-lqj-fhf-fish oil [Fish Oil] 1,000 MG capsule 1,000 mg PO TID Qty: 0 RF: 0 Lantus U-100 Insulin 100 UNIT/1 ML solution 60 unit SQ HS Qty: 0 RF: 0 escitalopram oxalate 20 mg tablet 20 mg PO DAILY RF: 0 Victoza 2-Raman 0.6 mg/0.1 mL (18 mg/3 mL) Pen Injector 1.8 mg SUBCUT BEDTIME RF: 0 methocarbamol [Robaxin-750] 750 mg tablet 750 mg PO QID Qty: 30 RF: 1 hydrocodone-acetaminophen [L[place]aster] 5-325 mg tablet 1 tab PO Q4H PRN (Reason: pain) Qty: 15 RF: 0 pantoprazole 40 mg Tablet,Delayed Release (Dr/Ec) 40 mg PO BID RF: 0
[2018-06-15] MEDS: HYDROMORPHONE 1 MG INJ 2 MG IM (04:12)
[2018-06-15 05:54] VITALS: BP 128/78; PULSE 102; RESP 20; O2SAT 97
== END 2018-06-15 05:45 | disposition home or self-care (01) ==
PROVIDERS: Emergency Provider Emergency Medicine
DX: S83.102A Unspecified subluxation of left knee, initial encounter (principal)
CPT/HCPCS: 96372; 99283; J1170

== ENCOUNTER 2018-06-20 23:05 | Emergency (ER) | payer MEDICARE, OTHER, SELFPAY ==
--- NOTE | 2018-06-20 23:05 | ED.LOWEXIN ---
HPI - Extremity Injury (Lower) General Chief Complaint: Extremity Injury, Lower Stated Complaint: Lt Knee Dislocation Time Seen by Provider: 06/20/18 23:05 Source: patient Mode of arrival: EMS Limitations: no limitations History of Present Illness HPI Narrative: Patient is a 57-year-old male has been here to the emergency department multiple times in the past for his left knee becoming ?locked? he has had multiple x-rays and has been evaluated by Orthopedics. He stated that he is waiting to have his A1c checked before their scheduling him for a revision of his left knee. I have evaluated him here in the emergency department in the past. He has been told that he needs to keep his knee in a knee immobilizer. He states this evening he was getting out of the shower putting on his shorts when his knee ?locked up? on him. He took Valium prior to arrival however this did not improve his symptoms. Related Data Allergies Allergy/AdvReac Type Severity Reaction Status Date / Time hydroxyzine [From Vistaril] Allergy Verified 06/20/18 23:07 meperidine [From Demerol] Allergy Verified 06/20/18 23:07 Review of Systems Constitutional Denies frequent falls and Denies weakness Musculoskeletal Reports arthralgias (Left knee) and Denies tingling Integumentary/Breasts Denies rash Neurologic Denies frequent falls, Denies tingling, Denies paresthesias and Denies weakness Hematologic/Lymphatic Denies easy bleeding and Denies easy bruising COUNT INCLUDES THE [facility] Surgical History History of total knee arthroplasty (Acute) Social History Smoking Status: Never smoker Social History Smoking Status: Never smoker Exam Initial Vital Signs Initial Vital Signs: Vital Signs Temperature 98.4 F 06/20/18 23:07 Pulse Rate 112 H 06/20/18 23:07 Respiratory Rate 18 06/20/18 23:07 Blood Pressure 156/71 H 06/20/18 23:07 Pulse Oximetry 99 06/20/18 23:07 Const General: cooperative, well groomed and No acute distress Orientation: alert, awake and oriented x3 HENMT Head: normal to inspection and normocephalic Resp Effort & Inspection: normal respiratory effort Cardio Rate: tachycardic Skin Lesions: no lesions Rashes: no rashes Neuro Other: Sensation intact to light touch left lower extremity Extrem Other: Left knee bent at approximately 100?. Psych Appearance: grossly normal and well kempt Course Vital Signs - 8 hr 06/20/18 23:07 Temperature 98.4 F Pulse Rate 112 H Respiratory Rate 18 Blood Pressure 156/71 H Pulse Oximetry 99 MDM - Extremity Injury (Lower) MDM Narrative Medical decision making narrative: Similar to the last time the patient was here I provided constant traction to his left lower extremity while massaging his quads and his hamstring. After approximately 2 minutes the patient's knee did become straight. He was placed another knee immobilizer. Will hold on any further x-rays. He was instructed that he needed to keep his knee in the knee immobilizer. He is neurovascular intact. Discharge Plan Departure Patient Disposition: Home Clinical Impression: Muscle spasm of left lower extremity Discharge Date/Time: 06/20/18 23:36 Interventions: ED Discharge Assessment Last Done: 06/20/18 23:28 Instructions: DI for Muscle Spasm Activity Restrictions/Additional Instructions: You needed and wear your knee immobilizer on a constant basis. If you take the immobilizer off do not bend your knee. Keep all of your scheduled medical appointments.
[2018-06-20 23:07] VITALS: BP 156/71; PULSE 112; RESP 18; TEMP 36.9; O2SAT 99; BMI 40.8
--- NOTE | 2018-06-20 23:13 | PC.NURSE ---
L knee reduced by Dr Rizzo at bedside and pt tolerated well. L knee immobilizer applied.
== END 2018-06-20 23:36 | disposition home or self-care (01) ==
LOC: ED 23:36
PROVIDERS: Emergency Provider Emergency Medicine
DX: M62.838 Other muscle spasm (principal)
CPT/HCPCS: 99282

== ENCOUNTER → 2018-06-23 11:23 | Outpatient (CLI) | payer MEDICARE, OTHER, SELFPAY ==
[2018-06-05 01:35] VITALS: BMI 42.0
[2018-06-23 12:52] LABS: Hemoglobin A1C% w Est Avg Glu 8.6 % (4.0-6.0)
== END ==
PROVIDERS: Visit Provider Orthopaedic Surgery
DX: R73.9 Hyperglycemia, unspecified (principal)
CPT/HCPCS: 36415; 83036

== ENCOUNTER 2018-06-26 15:20 | Emergency (ER) | payer MEDICARE, OTHER, SELFPAY ==
[2018-06-05 01:35] VITALS: BMI 42.0
[2018-06-26 15:23] VITALS: BP 137/79; PULSE 98; RESP 17; TEMP 37.1; O2SAT 97; BMI 40.8
--- NOTE | 2018-06-26 16:07 | DI.RAD.S_ITS ---
PROCEDURE: XR KNEE LT 1TO2V INDICATIONS: pain s/p fall TECHNIQUE: 3 views of the knee were acquired. COMPARISON: [facility], CR, XR KNEE LT 3V, 06/04/2018, 21:30. FINDINGS: Postoperative changes are present related to a total knee arthroplasty. The metallic prosthetic components appear to be appropriately positioned. No definite periprosthetic fractures or lucencies are evident. No significant joint effusion is evident. The knee is in flexion positioning. IMPRESSION: Total left knee arthroplasty. No fractures. Dictated by: Stevo Traylor M.D. on 06/26/2018 at 16:14 Approved by: Stevo Traylor M.D. on 06/26/2018 at 16:15
--- NOTE | 2018-06-26 16:07 | DI.RAD.S_ITS ---
PROCEDURE: XR ANKLE LT 2V INDICATIONS: pain s/p fall TECHNIQUE: 2 views of the ankle were acquired. COMPARISON: [facility], CR, XR FOOT LT MIN 3V, 06/04/2018, 21:57. [facility], CR, XR FOOT 3 VIEWS WEIGHT BEARING LEFT, 05/15/2018, 13:01. [facility], CR, XR FOOT 3+ VIEWS LEFT, 12/09/2017, 13:00. [facility], MR, MR FOOT LT WO CON, 07/08/2017, 7:36. FINDINGS: Bones: Extensive postoperative changes of the midfoot and hindfoot are identified. The dorsally applied orthopedic plate extending over the talonavicular joint appears to be fractured at the level of the navicular screw. However, the screws appear intact. Otherwise, the orthopedic screw extending through the posterior subtalar joint and the orthopedic screws/small plates along the lateral calcaneal cuboid joint are intact. There are orthopedic screws within the region of the talus and navicular are unchanged. The subtalar and calcaneocuboid joint spaces appear to be open. There may be bony fusion/incorporation at the talonavicular joint. Soft tissues: Thickening of the Achilles tendon, containing calcifications is present. Soft tissue edema about the ankle is noted. IMPRESSION: 1. Unchanged alignment of the hindfoot, status post extensive surgical fusion. Orthopedic hardware is described above. 2. There may be bony incorporation at the talonavicular joint. 3. The calcaneocuboid and posterior subtalar joint lines remain open. 4. Probable distal Achilles tendinopathy. Dictated by: Stevo Traylor M.D. on 06/26/2018 at 15:41 Approved by: Stevo Traylor M.D. on 06/26/2018 at 15:48
[2018-06-26 16:55] VITALS: BP 129/77; PULSE 97; RESP 20; O2SAT 98
--- NOTE | 2018-06-26 17:34 | PC.NURSE ---
pt states, fell at home today, now with left leg pain, pt arrived, left leg in flexion position.
[2018-06-26 17:35] VITALS: BP 147/91; PULSE 95; RESP 18; O2SAT 99
[2018-06-26] MEDS: KETOROLAC 60 MG/2 ML VIAL 30 MG IM (17:39)
[2018-06-26] MEDS: diazePAM 5 MG TABLET PO ×2 (19:05→19:40)
[2018-06-26 21:06] VITALS: BP 127/81; PULSE 95; RESP 17; O2SAT 100
--- NOTE | 2018-06-26 21:32 | ED.FALL ---
HPI - Fall <Annabel Fountain [employer] WORKER-BC - Last Filed: 06/26/18 21:38> General Chief Complaint: Fall Stated Complaint: Ground Level Fall Time Seen by Provider: 06/26/18 16:00 Source: patient and EMS Mode of arrival: EMS Limitations: no limitations History of Present Illness HPI Narrative: The patient is a 57-year-old male with history of diabetes this is a former smoker who presents with a chief complaint of a ground level fall at the [facility]. He presents with a complaint of right ankle pain and right knee pain and knee ?locking. He has been seen in this emergency department several times for his knee locking, but was not wearing his knee immobilizer as previously instructed when he fell getting out of his chair. He has had Charcot foot surgery on his right ankle. He denies any his head neck back or any head neck or back pain. He denies any loss of consciousness. He has not taken anything since leaving. Related Data Home Medications Medication Instructions Recorded Confirmed Lantus U-100 Insulin 80 unit SQ BEDTIME #0 03/15/17 06/26/18 Lyrica 225 mg PO BEDTIME #0 03/15/17 06/26/18 aspirin 81 mg PO BEDTIME #0 03/15/17 06/26/18 atorvastatin [Lipitor] 80 mg PO BEDTIME #0 03/15/17 06/26/18 omega 9-ixb-uri-fish oil [Fish Oil] 1,000 mg PO BEDTIME #0 03/15/17 06/26/18 Victoza 2-Raman 1.8 mg SUBCUT BEDTIME 11/15/17 06/26/18 escitalopram oxalate 20 mg PO BEDTIME 11/15/17 06/26/18 pantoprazole 40 mg PO BEDTIME 06/05/18 06/26/18 insulin aspart U-100 [Novolog 60 units SUBCUT TID 06/26/18 06/26/18 Flexpen U-100 Insulin] methocarbamol [Robaxin-750] 750 mg PO BEDTIME 06/26/18 06/26/18 Previous Rx's Medication Instructions Recorded hydrocodone-acetaminophen [Marcellus] 1 tab PO Q4H PRN #15 tab 05/03/18 Allergies Allergy/AdvReac Type Severity Reaction Status Date / Time meperidine [MEPERIDINE] Allergy Severe SHORTNESS Verified 06/26/18 15:23 OF BREATH hydroxyzine [HYDROXYZINE] Allergy Mild RASH Verified 06/26/18 15:23 Review of Systems <MARILYN Talley - Last Filed: 06/26/18 21:38> Review of Systems GENERAL: Denies chills, fatigue, malaise, fever, sweats. HEENT: Denies sinus pain, ear pain, sore throat, difficulty swallowing, dizziness. RESPIRATORY: Denies dyspnea, cough, wheezing, hemoptysis, sputum. CARDIOVASCULAR: Denies chest pain, palpitations, orthopnea, edema, GASTROINTESTINAL: Denies nausea, vomiting, abdominal pain, diarrhea, constipation, melena. : Denies dysuria, frequency, incontinence, hematuria, urinary retention. MUSCULOSKELETAL: See HPI SKIN: See HPI NEUROLOGIC: Denies weakness, headache, numbness, change in speech, confusion, seizures, incoordination. PSYCHIATRIC: No concerning psychosocial issues. 12 point review of systems is negative except for those stated above Exam <DONOVAN Talley - Last Filed: 06/26/18 21:38> Narrative Exam Narrative: GENERAL: This is a well-nourished, well-developed patient, lying on stretcher HEAD: Atraumatic. Normocephalic. No temporal or scalp tenderness. EYES: Pupils equal round and reactive. Extraocular motions intact. No scleral icterus. No injection or drainage. NECK: Trachea midline. No JVD or lymphadenopathy. Supple, nontender, no meningeal signs. CARDIOVASCULAR: Regular rate and rhythm RESPIRATORY: No cough. No increased respiratory effort. EXTREMITIES: Generalized pain to palpation right ankle. Patient is able to flex and extend right ankle. Knee is locked at approximately 100 degree angle. BACK: Nontender without deformity or crepitance. No flank tenderness. NEURO: AOx3. SKIN: No rash erythema or ecchymosis noted on right leg. Multiple postoperative scars on right ankle and right knee. Initial Vital Signs Initial Vital Signs: Vital Signs Temperature 98.8 F 06/26/18 15:23 Pulse Rate 98 H 06/26/18 15:23 Respiratory Rate 17 06/26/18 15:23 Blood Pressure 137/79 06/26/18 15:23 Pulse Oximetry 97 06/26/18 15:23 <Jamir Rizzo DO - Last Filed: 06/26/18 23:54> Initial Vital Signs Initial Vital Signs: Vital Signs Temperature 98.8 F 06/26/18 15:23 Pulse Rate 98 H 06/26/18 15:23 Respiratory Rate 17 06/26/18 15:23 Blood Pressure 137/79 06/26/18 15:23 Pulse Oximetry 97 06/26/18 15:23 PFSH <MARILYN Talley - Last Filed: 06/26/18 21:38> Medical History Subluxation of left knee (Acute) Obstructive sleep apnea on CPAP (Chronic) Hypoventilation associated with obesity (Chronic) Morbid obesity due to excess calories (Chronic) Peripheral neuropathy (Chronic) Anxiety (Acute 06/05/18) Coronary artery disease (Acute) Depression (Acute) Diabetes (Acute) Hx of myocardial infarction (Acute) Inpatient management required (Acute) Subluxation of left knee (Acute) Surgical History History of ankle surgery (Acute) History of arthroplasty of left knee (Acute 10/12/10) History of arthroplasty of right knee (Acute ~07/2014) History of cardiac cath (Acute 04/29/17) History of heart artery stent (Acute ~2011) History of total knee arthroplasty (Acute) Hx of appendectomy (Acute) Hx of foot surgery (Acute) Hx of shoulder surgery (Acute) Hx of tonsillectomy (Acute) Status post left foot surgery (Acute) Family History Father No problems noted. Mother No problems noted. Social History household members: spouse Smoking Status: Former smoker alcohol intake: current Family History Father No problems noted. Mother No problems noted. Social History household members: spouse Smoking Status: Former smoker alcohol intake: current Procedures <MARILYN Talley - Last Filed: 06/26/18 21:38> Orthopedic Splinting/Casting Injury #1: Side: left Lower Extremity Injury Location: knee and ankle Lower Extremity Immobilizer: posterior splint Post splinting neuro exam: intact Post splinting vascular exam: intact Placed by: Nursing Course <ANNE MARIE Talley-BC - Last Filed: 06/26/18 21:38> Orders Ordered: ED Orders 06/26/18 16:07 XR ankle LT 2V Stat XR knee LT 1to2V Stat Discontinued Medications Diazepam (Valium) 5 mg PO NOW ONE Stop: 06/26/18 18:50 Last Admin: 06/26/18 19:05 Dose: 5 mg Diazepam (Valium) 5 mg PO NOW ONE Stop: 06/26/18 19:36 Last Admin: 06/26/18 19:40 Dose: 5 mg Ketorolac Tromethamine (Toradol) 30 mg IM NOW ONE Stop: 06/26/18 17:32 Last Admin: 06/26/18 17:39 Dose: 30 mg Vital Signs - 8 hr 06/26/18 16:55 06/26/18 17:35 06/26/18 21:06 Pulse Rate 97 H 95 H 95 H Respiratory Rate 20 18 17 Blood Pressure 127/81 Blood Pressure [Left Arm] 129/77 147/91 H Pulse Oximetry 98 99 100 <Jamir Rizzo DO - Last Filed: 06/26/18 23:54> Orders Ordered: ED Orders 06/26/18 16:07 XR ankle LT 2V Stat XR knee LT 1to2V Stat Discontinued Medications Diazepam (Valium) 5 mg PO NOW ONE Stop: 06/26/18 18:50 Last Admin: 06/26/18 19:05 Dose: 5 mg Diazepam (Valium) 5 mg PO NOW ONE Stop: 06/26/18 19:36 Last Admin: 06/26/18 19:40 Dose: 5 mg Ketorolac Tromethamine (Toradol) 30 mg IM NOW ONE Stop: 06/26/18 17:32 Last Admin: 06/26/18 17:39 Dose: 30 mg Vital Signs - 8 hr 06/26/18 16:55 06/26/18 17:35 06/26/18 21:06 Pulse Rate 97 H 95 H 95 H Respiratory Rate 20 18 17 Blood Pressure 127/81 Blood Pressure [Left Arm] 129/77 147/91 H Pulse Oximetry 98 99 100 MDM - Fall <MARILYN Talley - Last Filed: 06/26/18 21:38> Imaging Data Ankle x-ray: Radiologist's impression: [address] [address] XRay Report Signed Patient: Jamir Garcia KMR#: [id number] : 9Acct:[id number] Age/Sex: 57 / MDate of Service: 06/26/18 Loc: ED Accession Number: [id number] Procedure: XR ankle LT 2V Ordering Provider: Annabel Fountain PROCEDURE: XR ANKLE LT 2V INDICATIONS: pain s/p fall TECHNIQUE: 2 views of the ankle were acquired. COMPARISON: [facility], CR, XR FOOT LT MIN 3V, 06/04/2018, 21:57. [facility], CR, XR FOOT 3 VIEWS WEIGHT BEARING LEFT, 05/15/2018, 13:01. [facility], CR, XR FOOT 3+ VIEWS LEFT, 12/09/2017, 13:00. [facility], MR, MR FOOT LT WO CON, 07/08/2017, 7:36. FINDINGS: Bones: Extensive postoperative changes of the midfoot and hindfoot are identified. The dorsally applied orthopedic plate extending over the talonavicular joint appears to be fractured at the level of the navicular screw. However, the screws appear intact. Otherwise, the orthopedic screw extending through the posterior subtalar joint and the orthopedic screws/small plates along the lateral calcaneal cuboid joint are intact. There are orthopedic screws within the region of the talus and navicular are unchanged. The subtalar and calcaneocuboid joint spaces appear to be open. There may be bony fusion/incorporation at the talonavicular joint. Soft tissues: Thickening of the Achilles tendon, containing calcifications is present. Soft tissue edema about the ankle is noted. IMPRESSION: 1. Unchanged alignment of the hindfoot, status post extensive surgical fusion. Orthopedic hardware is described above. 2. There may be bony incorporation at the talonavicular joint. 3. The calcaneocuboid and posterior subtalar joint lines remain open. 4. Probable distal Achilles tendinopathy. Dictated by: Stevo Traylor M.D. on 06/26/2018 at 15:41 Approved by: Stevo Traylor M.D. on 06/26/2018 at 15:48 knee x-ray: Radiologist's impression: [address] [address] XRay Report Signed Patient: Jamir Garcia KMR#: [id number] : 9Acct:[id number] Age/Sex: 57 / MDate of Service: 06/26/18 Loc: ED Accession Number: [id number] Procedure: XR knee LT 1to2V Ordering Provider: Annabel Fountain PROCEDURE: XR KNEE LT 1TO2V INDICATIONS: pain s/p fall TECHNIQUE: 3 views of the knee were acquired. COMPARISON: [facility], [place], XR KNEE LT 3V, 06/04/2018, 21:30. FINDINGS: Postoperative changes are present related to a total knee arthroplasty. The metallic prosthetic components appear to be appropriately positioned. No definite periprosthetic fractures or lucencies are evident. No significant joint effusion is evident. The knee is in flexion positioning. IMPRESSION: Total left knee arthroplasty. No fractures. Dictated by: Stevo Traylor M.D. on 06/26/2018 at 16:14 Approved by: Stevo Traylor M.D. on 06/26/2018 at 16:15 [facility] Narrative Medical decision making narrative: The patient is a 57-year-old male who presents to this department with a chief complaint of ankle and knee pain. He states his knee is locked. He requested multiple times to have conscious sedation, but that has not been worried had previously in order to straighten his knee. He also declined pain medication upon arrival several times. Eventually the patient agreed to take some Valium. I held very gentle constant traction to his left lower extremity and over about 3 minutes his knee straight and. The patient was placed in a back slab splint from above his knee down to around his foot. His ankle x-ray illustrated some possible damage to the hardware of his ankle and foot surgery, so I instructed him to follow up with his surgeon. I discussed at length that he needs to keep his knee immobilized so that these episodes do not keep happening. He is neurovascularly intact throughout stay in the emergency department. I encouraged him to follow up with his PCP as well as his orthopedist. Patient took a car home. Discharge Plan Departure Patient Disposition: Home Clinical Impression: Knee subluxation Qualifiers: Encounter type: initial encounter Laterality: left Qualified Code(s): S83.102A - Unspecified subluxation of left knee, initial encounter Acute ankle pain Qualifiers: Laterality: left Qualified Code(s): M25.572 - Pain in left ankle and joints of left foot Discharge Date/Time: 06/26/18 21:07 Interventions: ED Discharge Assessment Last Done: 06/26/18 21:06 Instructions: How to Prevent Falls, DI for Ankle Pain, DI for Knee Pain, DI for Muscle Spasm Activity Restrictions/Additional Instructions: Neither of your x-rays show fractures today. Please follow up with her primary care as well as her orthopedist. Please treat your knee like you are in a permanent splint. Please keep the splint on at all times. Please do not take it off and bent your knee. Please keep it on at all times. Please monitor the circulation of her foot and make sure it is warm an injury free. Please follow-up with your foot surgeon as well. Prescriptions: No Action atorvastatin [Lipitor] 80 MG tablet 80 mg PO BEDTIME Qty: 0 RF: 0 Lyrica 225 MG capsule 225 mg PO BEDTIME Qty: 0 RF: 0 aspirin 81 MG tablet,delayed release (DR/EC) 81 mg PO BEDTIME Qty: 0 RF: 0 omega 1-zhe-qza-fish oil [Fish Oil] 1,000 MG capsule 1,000 mg PO BEDTIME Qty: 0 RF: 0 Lantus U-100 Insulin 100 UNIT/1 ML solution 80 unit SQ BEDTIME Qty: 0 RF: 0 escitalopram oxalate 20 mg tablet 20 mg PO BEDTIME RF: 0 Victoza 2-Raman 0.6 mg/0.1 mL (18 mg/3 mL) Pen Injector 1.8 mg SUBCUT BEDTIME RF: 0 Novolog Flexpen U-100 Insulin 100 unit/mL Insulin Pen 60 units subcut TID RF: 0 methocarbamol [Robaxin-750] 750 mg tablet 750 mg PO BEDTIME RF: 0 hydrocodone-acetaminophen [Marcellus] 5-325 mg tablet 1 tab PO Q4H PRN (Reason: pain) Qty: 15 RF: 0 pantoprazole 40 mg Tablet,Delayed Release (Dr/Ec) 40 mg PO BEDTIME RF: 0 <Jamir Rizzo, DO - Last Filed: 06/26/18 23:54> Cosign ED Attending Costoreyature Attestation: I was available for consultation during this patient's emergency department encounter
--- NOTE | 2018-06-26 21:38 | ED_ITS ---
HPI - Fall <Annabel Fountain TRANSIT MIXER DRIVER-BC - Last Filed: 06/26/18 21:38> General Chief Complaint: Fall Stated Complaint: Ground Level Fall Time Seen by Provider: 06/26/18 16:00 Source: patient and EMS Mode of arrival: EMS Limitations: no limitations History of Present Illness HPI Narrative: The patient is a 57-year-old male with history of diabetes this is a former smoker who presents with a chief complaint of a ground level fall at the [facility]. He presents with a complaint of right ankle pain and right knee pain and knee ?locking. He has been seen in this emergency department several times for his knee locking, but was not wearing his knee immobilizer as previously instructed when he fell getting out of his chair. He has had Charcot foot surgery on his right ankle. He denies any his head neck back or any head neck or back pain. He denies any loss of consciousness. He has not taken anything since leaving. Related Data Home Medications Medication Instructions Recorded Confirmed Lantus U-100 Insulin 80 unit SQ BEDTIME #0 03/15/17 06/26/18 Lyrica 225 mg PO BEDTIME #0 03/15/17 06/26/18 aspirin 81 mg PO BEDTIME #0 03/15/17 06/26/18 atorvastatin [Lipitor] 80 mg PO BEDTIME #0 03/15/17 06/26/18 omega 5-yey-usl-fish oil [Fish Oil] 1,000 mg PO BEDTIME #0 03/15/17 06/26/18 Victoza 2-Raman 1.8 mg SUBCUT BEDTIME 11/15/17 06/26/18 escitalopram oxalate 20 mg PO BEDTIME 11/15/17 06/26/18 pantoprazole 40 mg PO BEDTIME 06/05/18 06/26/18 insulin aspart U-100 [Novolog 60 units SUBCUT TID 06/26/18 06/26/18 Flexpen U-100 Insulin] methocarbamol [Robaxin-750] 750 mg PO BEDTIME 06/26/18 06/26/18 Previous Rx's Medication Instructions Recorded hydrocodone-acetaminophen [[place]] 1 tab PO Q4H PRN #15 tab 05/03/18 Allergies Allergy/AdvReac Type Severity Reaction Status Date / Time meperidine [MEPERIDINE] Allergy Severe SHORTNESS Verified 06/26/18 15:23 OF BREATH hydroxyzine [HYDROXYZINE] Allergy Mild RASH Verified 06/26/18 15:23 Review of Systems <MARILYN Talley - Last Filed: 06/26/18 21:38> Review of Systems GENERAL: Denies chills, fatigue, malaise, fever, sweats. HEENT: Denies sinus pain, ear pain, sore throat, difficulty swallowing, dizziness. RESPIRATORY: Denies dyspnea, cough, wheezing, hemoptysis, sputum. CARDIOVASCULAR: Denies chest pain, palpitations, orthopnea, edema, GASTROINTESTINAL: Denies nausea, vomiting, abdominal pain, diarrhea, constipation, melena. : Denies dysuria, frequency, incontinence, hematuria, urinary retention. MUSCULOSKELETAL: See HPI SKIN: See HPI NEUROLOGIC: Denies weakness, headache, numbness, change in speech, confusion, seizures, incoordination. PSYCHIATRIC: No concerning psychosocial issues. 12 point review of systems is negative except for those stated above Exam <MARILYN Talley - Last Filed: 06/26/18 21:38> Narrative Exam Narrative: GENERAL: This is a well-nourished, well-developed patient, lying on stretcher HEAD: Atraumatic. Normocephalic. No temporal or scalp tenderness. EYES: Pupils equal round and reactive. Extraocular motions intact. No scleral icterus. No injection or drainage. NECK: Trachea midline. No JVD or lymphadenopathy. Supple, nontender, no meningeal signs. CARDIOVASCULAR: Regular rate and rhythm RESPIRATORY: No cough. No increased respiratory effort. EXTREMITIES: Generalized pain to palpation right ankle. Patient is able to flex and extend right ankle. Knee is locked at approximately 100 degree an gle. BACK: Nontender without deformity or crepitance. No flank tenderness. NEURO: AOx3. SKIN: No rash erythema or ecchymosis noted on right leg. Multiple postoperative scars on right ankle and right knee. Initial Vital Signs Initial Vital Signs: Vital Signs Temperature 98.8 F 06/26/18 15:23 Pulse Rate 98 H 06/26/18 15:23 Respiratory Rate 17 06/26/18 15:23 Blood Pressure 137/79 06/26/18 15:23 Pulse Oximetry 97 06/26/18 15:23 <Jamir Rizzo DO - Last Filed: 06/26/18 23:54> Initial Vital Signs Initial Vital Signs: Vital Signs Temperature 98.8 F 06/26/18 15:23 Pulse Rate 98 H 06/26/18 15:23 Respiratory Rate 17 06/26/18 15:23 Blood Pressure 137/79 06/26/18 15:23 Pulse Oximetry 97 06/26/18 15:23 PFSH <MARILYN Talley - Last Filed: 06/26/18 21:38> Medical History Subluxation of left knee (Acute) Obstructive sleep apnea on CPAP (Chronic) Hypoventilation associated with obesity (Chronic) Morbid obesity due to excess calories (Chronic) Peripheral neuropathy (Chronic) Anxiety (Acute 06/05/18) Coronary artery disease (Acute) Depression (Acute) Diabetes (Acute) Hx of myocardial infarction (Acute) Inpatient management required (Acute) Subluxation of left knee (Acute) Surgical History History of ankle surgery (Acute) History of arthroplasty of left knee (Acute 10/12/10) History of arthroplasty of right knee (Acute ~07/2014) History of cardiac cath (Acute 04/29/17) History of heart artery stent (Acute ~2011) History of total knee arthroplasty (Acute) Hx of appendectomy (Acute) Hx of foot surgery (Acute) Hx of shoulder surgery (Acute) Hx of tonsillectomy (Acute) Status post left foot surgery (Acute) Family History Father No problems noted. Mother No problems noted. Social History household members: spouse Smoking Status: Former smoker alcohol intake: current Family History Father No problems noted. Mother No problems noted. Social History household members: spouse Smoking Status: Former smoker alcohol intake: current Procedures <MARILYN Talley - Last Filed: 06/26/18 21:38> Orthopedic Splinting/Casting Injury #1: Side: left Lower Extremity Injury Location: knee and ankle Lower Extremity Immobilizer: posterior splint Post splinting neuro exam: intact Post splinting vascular exam: intact Placed by: Nursing Course <ANNE MARIE Talley-BC - Last Filed: 06/26/18 21:38> Orders Ordered: ED Orders 06/26/18 16:07 XR ankle LT 2V Stat XR knee LT 1to2V Stat Discontinued Medications Diazepam (Valium) 5 mg PO NOW ONE Stop: 06/26/18 18:50 Last Admin: 06/26/18 19:05 Dose: 5 mg Diazepam (Valium) 5 mg PO NOW ONE Stop: 06/26/18 19:36 Last Admin: 06/26/18 19:40 Dose: 5 mg Ketorolac Tromethamine (Toradol) 30 mg IM NOW ONE Stop: 06/26/18 17:32 Last Admin: 06/26/18 17:39 Dose: 30 mg Vital Signs - 8 hr 06/26/18 16:55 06/26/18 17:35 06/26/18 21:06 Pulse Rate 97 H 95 H 95 H Respiratory Rate 20 18 17 Blood Pressure 127/81 Blood Pressure [Left Arm] 129/77 147/91 H Pulse Oximetry 98 99 100 <Jamir Rizzo DO - Last Filed: 06/26/18 23:54> Orders Ordered: ED Orders 06/26/18 16:07 XR ankle LT 2V Stat XR knee LT 1to2V Stat Discontinued Medications Diazepam (Valium) 5 mg PO NOW ONE Stop: 06/26/18 18:50 Last Admin: 06/26/18 19:05 Dose: 5 mg Diazepam (Valium) 5 mg PO NOW ONE Stop: 06/26/18 19:36 Last Admin: 06/26/18 19:40 Dose: 5 mg Ketorolac Tromethamine (Toradol) 30 mg IM NOW ONE Stop: 06/26/18 17:32 Last Admin: 06/26/18 17:39 Dose: 30 mg Vital Signs - 8 hr 06/26/18 16:55 06/26/18 17:35 06/26/18 21:06 Pulse Rate 97 H 95 H 95 H Respiratory Rate 20 18 17 Blood Pressure 127/81 Blood Pressure [Left Arm] 129/77 147/91 H Pulse Oximetry 98 99 100 MDM - Fall <MARILYN Talley - Last Filed: 06/26/18 21:38> Imaging Data Ankle x-ray: Radiologist's impression: [address] [address] XRay Report Signed Patient: Jamir Garcia KMR#: [id number] : 9Acct:[id number] Age/Sex: 57 / MDate of Service: 06/26/18 Loc: ED Accession Number: [id number] Procedure: XR ankle LT 2V Ordering Provider: Annabel Fountain PROCEDURE: XR ANKLE LT 2V INDICATIONS: pain s/p fall TECHNIQUE: 2 views of the ankle were acquired. COMPARISON: [facility], CR, XR FOOT LT MIN 3V, 06/04/2018, 21:57. [facility], CR, XR FOOT 3 VIEWS WEIGHT BEARING LEFT, 05/15/2018, 13:01. Located [facility], CR, XR FOOT 3+ VIEWS LEFT, 12/09/2017, 13:00. [facility], MR, MR FOOT LT WO CON, 07/08/2017, 7:36. FINDINGS: Bones: Extensive postoperative changes of the midfoot and hindfoot are identified. The dorsally applied orthopedic plate extending over the talonavicular joint appears to be fractured at the level of the navicular screw. However, the screws appear intact. Otherwise, the orthopedic screw extending through the posterior subtalar joint and the orthopedic screws/small plates along the lateral calcaneal cuboid joint are intact. There are orthopedic screws within the region of the talus and navicular are unchanged. The subtalar and calcaneocuboid joint spaces appear to be open. There may be bony fusion/incorporation at the talonavicular joint. Soft tissues: Thickening of the Achilles tendon, containing calcifications is present. Soft tissue edema about the ankle is noted. IMPRESSION: 1. Unchanged alignment of the hindfoot, status post extensive surgical fusion. Orthopedic hardware is described above. 2. There may be bony incorporation at the talonavicular joint. 3. The calcaneocuboid and posterior subtalar joint lines remain open. 4. Probable distal Achilles tendinopathy. Dictated by: Stevo Traylor M.D. on 06/26/2018 at 15:41 Approved by: Stevo Traylor M.D. on 06/26/2018 at 15:48 knee x-ray: Radiologist's impression: [address] [id number] XRay Report Signed Patient: Jamir Garcia KMR#: [id number] : 9Acct:[id number] Age/Sex: 57 / MDate of Service: 06/26/18 Loc: ED Accession Number: [id number] Procedure: XR knee LT 1to2V Ordering Provider: Annabel Fountain PROCEDURE: XR KNEE LT 1TO2V INDICATIONS: pain s/p fall TECHNIQUE: 3 views of the knee were acquired. COMPARISON: [facility], [place], XR KNEE LT 3V, 06/04/2018, 21:30. FINDINGS: Postoperative changes are present related to a total knee arthroplasty. The metallic prosthetic components appear to be appropriately positioned. No definite periprosthetic fractures or lucencies are evident. No significant joint effusion is evident. The knee is in flexion positioning. IMPRESSION: Total left knee arthroplasty. No fractures. Dictated by: Stevo Traylor M.D. on 06/26/2018 at 16:14 Approved by: Stevo Traylor M.D. on 06/26/2018 at 16:[address] [facility] Narrative Medical decision making narrative: The patient is a 57-year-old male who presents to this department with a chief complaint of ankle and knee pain. He states his knee is locked. He requested multiple times to have conscious sedation, but that has not been worried had previously in order to straighten his knee. He also declined pain medication upon arrival several times. Eventually the patient agreed to take some Valium. I held very gentle constant traction to his left lower extremity and over about 3 minutes his knee straight and. The patient was placed in a back slab splint from above his knee down to around his foot. His ankle x-ray illustrated some possible damage to the hardware of his ankle and foot surgery, so I instructed him to follow up with his surgeon. I discussed at length that he needs to keep his knee immobilized so that these episodes do not keep happening. He is neurovascularly intact throughout stay in the emergency department. I encouraged him to follow up with his PCP as well as his orthopedist. Patient took a car home. Discharge Plan Departure Patient Disposition: Home Clinical Impression: Knee subluxation Qualifiers: Encounter type: initial encounter Laterality: left Qualified Code(s): S83.102A - Unspecified subluxation of left knee, initial encounter Acute ankle pain Qualifiers: Laterality: left Qualified Code(s): M25.572 - Pain in left ankle and joints of left foot Discharge Date/Time: 06/26/18 21:07 Interventions: ED Discharge Assessment Last Done: 06/26/18 21:06 Instructions: How to Prevent Falls, DI for Ankle Pain, DI for Knee Pain, DI for Muscle Spasm Activity Restrictions/Additional Instructions: Neither of your x-rays show fractures today. Please follow up with her primary care as well as her orthopedist. Please treat your knee like you are in a permanent splint. Please keep the splint on at all times. Please do not take it off and bent your knee. Please keep it on at all times. Please monitor the circulation of her foot and make sure it is warm an injury free. Please follow- up with your foot surgeon as well. Prescriptions: No Action atorvastatin [Lipitor] 80 MG tablet 80 mg PO BEDTIME Qty: 0 RF: 0 Lyrica 225 MG capsule 225 mg PO BEDTIME Qty: 0 RF: 0 aspirin 81 MG tablet,delayed release (DR/EC) 81 mg PO BEDTIME Qty: 0 RF: 0 omega 8-atu-pwi-fish oil [Fish Oil] 1,000 MG capsule 1,000 mg PO BEDTIME Qty: 0 RF: 0 Lantus U-100 Insulin 100 UNIT/1 ML solution 80 unit SQ BEDTIME Qty: 0 RF: 0 escitalopram oxalate 20 mg tablet 20 mg PO BEDTIME RF: 0 Victoza 2-Raamn 0.6 mg/0.1 mL (18 mg/3 mL) Pen Injector 1.8 mg SUBCUT BEDTIME RF: 0 Novolog Flexpen U-100 Insulin 100 unit/mL Insulin Pen 60 units subcut TID RF: 0 methocarbamol [Robaxin-750] 750 mg tablet 750 mg PO BEDTIME RF: 0 hydrocodone-acetaminophen [[place]] 5-325 mg tablet 1 tab PO Q4H PRN (Reason: pain) Qty: 15 RF: 0 pantoprazole 40 mg Tablet,Delayed Release (Dr/Ec) 40 mg PO BEDTIME RF: 0 <Jamir Rizzo, DO - Last Filed: 06/26/18 23:54> Cosign ED Attending Cosignature Attestation: I was available for consultation during this patient's emergency department encounter
== END 2018-06-26 21:07 | disposition home or self-care (01) ==
PROVIDERS: Emergency Provider Nurse Practitioner Family
DX: S83.102A Unspecified subluxation of left knee, initial encounter (principal); M25.572 Pain in left ankle and joints of left foot; W18.30XA Fall on same level, unspecified, initial encounter
CPT/HCPCS: 73560; 73600; 96372; 99283; J1885

== ENCOUNTER 2018-07-03 02:54 | Emergency (ER) | payer MEDICARE, OTHER, SELFPAY ==
[2018-06-05 01:35] VITALS: BMI 42.0
--- NOTE | 2018-07-03 02:57 | ED.GENADULT ---
HPI - General Adult General Chief complaint: Extremity Problem,Nontraumatic Stated complaint: L knee locked Time Seen by Provider: 07/03/18 02:55 Source: patient Mode of arrival: EMS Limitations: no limitations History of Present Illness HPI narrative: Patient is a 57-year-old male well-known to myself for having muscle spasms in his left lower extremity that causes his knee to bend. He is currently scheduled for orthopedic surgery on the of this month. Last time he was in the emergency department he was placed in a posterior Ortho Glass splint and told to keep that splint on 24/09. He arrives today with that splint off. He does have at his knee immobilizer with him. He states that he was told by his curve saw operator that he could take the splint off. He states that he was taking a shower when his leg spasmed. Related Data Home Medications Medication Instructions Recorded Confirmed Lantus U-100 Insulin 80 unit SQ BEDTIME #0 03/15/17 06/26/18 Lyrica 225 mg PO BEDTIME #0 03/15/17 06/26/18 aspirin 81 mg PO BEDTIME #0 03/15/17 06/26/18 atorvastatin [Lipitor] 80 mg PO BEDTIME #0 03/15/17 06/26/18 omega 5-hhk-jtn-fish oil [Fish Oil] 1,000 mg PO BEDTIME #0 03/15/17 06/26/18 Victoza 2-Raman 1.8 mg SUBCUT BEDTIME 11/15/17 06/26/18 escitalopram oxalate 20 mg PO BEDTIME 11/15/17 06/26/18 pantoprazole 40 mg PO BEDTIME 06/05/18 06/26/18 insulin aspart U-100 [Novolog 60 units SUBCUT TID 06/26/18 06/26/18 Flexpen U-100 Insulin] methocarbamol [Robaxin-750] 750 mg PO BEDTIME 06/26/18 06/26/18 Previous Rx's Medication Instructions Recorded hydrocodone-acetaminophen [[place]] 1 tab PO Q4H PRN #15 tab 05/03/18 Allergies Allergy/AdvReac Type Severity Reaction Status Date / Time meperidine [MEPERIDINE] Allergy Severe SHORTNESS Verified 06/26/18 15:23 OF BREATH hydroxyzine [HYDROXYZINE] Allergy Mild RASH Verified 06/26/18 15:23 Review of Systems Musculoskeletal Comments: Left knee pain and spasm Integumentary/Breasts Denies rash Neurologic Comments: No change in neurologic status Hematologic/Lymphatic Denies easy bleeding and Denies easy bruising [facility] Medical History Subluxation of left knee (Acute) Obstructive sleep apnea on CPAP (Chronic) Hypoventilation associated with obesity (Chronic) Morbid obesity due to excess calories (Chronic) Peripheral neuropathy (Chronic) Anxiety (Acute 06/05/18) Coronary artery disease (Acute) Depression (Acute) Diabetes (Acute) Hx of myocardial infarction (Acute) Inpatient management required (Acute) Subluxation of left knee (Acute) Social History household members: spouse Smoking Status: Former smoker alcohol intake: current Exam Initial Vital Signs Initial Vital Signs: Vital Signs Temperature 99 F 07/03/18 03:07 Pulse Rate 108 H 07/03/18 03:07 Respiratory Rate 18 07/03/18 03:07 Blood Pressure 149/87 H 07/03/18 03:07 Pulse Oximetry 100 07/03/18 03:07 Resp Effort & Inspection: normal respiratory effort Skin Lesions: no lesions Rashes: no rashes Extrem Other: Patient's left knee flexed greater than 90?. Psych Appearance: grossly normal and well kempt Procedures Orthopedic Splinting/Casting Injury #1: Side: left Lower Extremity Injury Location: knee Lower Extremity Immobilizer: knee immobilizer Post splinting neuro exam: intact and no change Post splinting vascular exam: intact Placed by: Provider Course Vital Signs - 8 hr 07/03/18 03:07 Temperature 99 F Pulse Rate 108 H Respiratory Rate 18 Blood Pressure 149/87 H Pulse Oximetry 100 Medical Decision Making MDM Narrative Medical decision making narrative: I was once again able to straighten the patient's knee with just gentle constant traction. I placed my hand behind his heel while massaging his quadriceps and also his hamstrings. After a few short minutes his knee straightens out. He was placed in a knee immobilizer. He was once again told to keep the knee immobilizer on 24/09. I informed him to treat it like a cast. He was given follow-up instructions and return precautions Discharge Plan Departure Patient Disposition: Home Clinical Impression: Muscle spasm of left lower extremity Instructions: How to Use a Knee Immobilizer Activity Restrictions/Additional Instructions: Highly recommend that you keep that knee immobilizer on 24/09. Your knee cannot spasm or bend if the knee immobilizer stays on. I recommend that you treated like a cast. Call Dr. Castillo office later today for follow-up. Prescriptions: No Action atorvastatin [Lipitor] 80 MG tablet 80 mg PO BEDTIME Qty: 0 RF: 0 Lyrica 225 MG capsule 225 mg PO BEDTIME Qty: 0 RF: 0 aspirin 81 MG tablet,delayed release (DR/EC) 81 mg PO BEDTIME Qty: 0 RF: 0 omega 2-duf-smb-fish oil [Fish Oil] 1,000 MG capsule 1,000 mg PO BEDTIME Qty: 0 RF: 0 Lantus U-100 Insulin 100 UNIT/1 ML solution 80 unit SQ BEDTIME Qty: 0 RF: 0 escitalopram oxalate 20 mg tablet 20 mg PO BEDTIME RF: 0 Victoza 2-Raman 0.6 mg/0.1 mL (18 mg/3 mL) Pen Injector 1.8 mg SUBCUT BEDTIME RF: 0 Novolog Flexpen U-100 Insulin 100 unit/mL Insulin Pen 60 units subcut TID RF: 0 methocarbamol [Robaxin-750] 750 mg tablet 750 mg PO BEDTIME RF: 0 hydrocodone-acetaminophen [[place]] 5-325 mg tablet 1 tab PO Q4H PRN (Reason: pain) Qty: 15 RF: 0 pantoprazole 40 mg Tablet,Delayed Release (Dr/Ec) 40 mg PO BEDTIME RF: 0
[2018-07-03 03:07] VITALS: BP 149/87; PULSE 108; RESP 18; TEMP 37.2; O2SAT 100
--- NOTE | 2018-07-03 03:12 | PC.NURSE ---
DR Rizzo patiently massaged left lower thigh and left upper calf until he was able to straighten left knee.His left knee was lockedin left leg flexion,after his knee and left leg were straightened,his knee immobilizer he brought was placed back on.He had toaken it off this AM to shower he said when his knee became locked in flexion.
== END 2018-07-03 03:10 | disposition home or self-care (01) ==
PROVIDERS: Emergency Provider Emergency Medicine
DX: M62.838 Other muscle spasm (principal); M25.562 Pain in left knee
CPT/HCPCS: 99282

== ENCOUNTER → 2018-07-04 10:30 | Outpatient (CLI) | payer MEDICARE, OTHER, SELFPAY ==
[2018-06-05 01:35] VITALS: BMI 42.0
[2018-07-04 11:02] LABS: Bacteria Urine None Seen; RBC Urine None Seen (0-5/HPF); WBC Urine None Seen (0-5/HPF)
[2018-07-04 11:47] LABS: Hemoglobin A1C% w Est Avg Glu 8.3 % (4.0-6.0)
[2018-07-04 11:53] LABS: Add Manual Diff / Slide Review NO; Basophils Absolute Auto 100 /uL (0-100); Eosinophils Absolute Auto 200 /uL (0-450); Eosinophils Percent Auto 3.1 % (2-4); Hematocrit 45.6 % (41-53); Hemoglobin 15.3 g/dL (13.5-17.5); Lymphocytes Absolute Auto 1700 /uL (1100-4500); Lymphocytes Percent Auto 25.1 % (25-40); Mean Corpuscular HGB Conc 33.5 % (30-36); Mean Corpuscular Hemoglobin 31.2 PG (26-34); Mean Corpuscular Volume 93.1 fL (80-100); Monocytes Absolute Auto 600 /uL (0-900); Monocytes Percent Auto 8.7 % (3-14); Neutrophils Absolute Auto 4200 /uL (1500-7000); Neutrophils Percent Auto 62.1 % (50-75); Platelet Count 145 X10^3/uL (150-400); Red Cell Distribution Width 14.4 % (11.6-14.8); White Blood Cell Count 6.7 X10^3/uL (4.5-11.0)
[2018-07-04 12:24] LABS: Appearance Urine UA CLEAR; Bilirubin Urine UA NEGATIVE (NEGATIVE); Color Urine UA YELLOW; Glucose Urine UA 2+ g/dL (Negative); Ketones Urine UA NEGATIVE (NEGATIVE); Leukocyte Esterase Urine UA NEGATIVE (NEGATIVE); Nitrite Urine UA NEGATIVE (Negative); Occult Blood Urine UA NEGATIVE (Negative); Protein Urine UA NEGATIVE (Negative); Urobilinogen Urine UA 0.2 E.U./dL (0.2)
[2018-07-04 12:43] LABS: Culture Indicated Urine Cult Not Indicated; Urine Comments Microscopic Normal
[2018-07-04 13:00] LABS: BUN Creatinine Ratio 13.3 (6-22); Blood Urea Nitrogen 8 mg/dL (9-20); Calcium 8.8 mg/dL (8.4-10.2); Carbon Dioxide 22 mmol/L (22-32); Chloride 98 mmol/L (98-107); Estimated Glomerular Filt Rate > 60.0 mL/min (>60); Glucose 310 mg/dL (70-100); HEMOLYSIS 29 (0-50); Potassium 4.3 mmol/L (3.4-5.1); Sodium 136 mmol/L (137-145)
== END ==
PROVIDERS: Visit Provider Orthopaedic Surgery
DX: Z01.818 Encounter for other preprocedural examination (principal); Z01.812 Encounter for preprocedural laboratory examination; N39.9 Disorder of urinary system, unspecified; Z13.1 Encounter for screening for diabetes mellitus; R73.9 Hyperglycemia, unspecified
CPT/HCPCS: 36415; 80048; 81001; 83036; 85025; 93005

== ENCOUNTER 2018-07-06 15:59 | Emergency (ER) | payer MEDICARE, OTHER, SELFPAY ==
[2018-06-05 01:35] VITALS: BMI 42.0
[2018-07-06 16:05] VITALS: BP 139/80; PULSE 99; RESP 20; TEMP 36.8
--- NOTE | 2018-07-06 16:06 | DI.RAD.S_ITS ---
PROCEDURE: XR KNEE LT 3V INDICATIONS: knee pain, unable to bear weight, felt a pop TECHNIQUE: 3 views of the knee were acquired. COMPARISON: 06/26/18. FINDINGS: Bones: There are stable postoperative changes from left total knee arthroplasty. Surgical hardware appears intact and stable in position. The knee remains in flexion. No acute fractures or dislocations. No suspicious bony lesions. Soft tissues: No substantial joint effusion. No suspicious soft tissue calcifications. IMPRESSION: Status post left total knee arthroplasty without evidence for acute fracture or acute hardware complication. Dictated by: Gabriel Moreland M.D. on 07/06/2018 at 19:21 Approved by: Gabriel Moreland M.D. on 07/06/2018 at 19:23
[2018-07-06] MEDS: HYDROCODONE/ACET 5/325 TABLET 2 TAB PO (18:28)
[2018-07-06] MEDS: diazePAM 5 MG TABLET 10 MG PO (19:33)
--- NOTE | 2018-07-06 20:33 | PC.NURSE ---
standby assist with straightening of leg. Pt tolerated well. Leg straight and now in knee immobilizer
[2018-07-06 21:15] VITALS: BP 133/86; PULSE 97; RESP 19; TEMP 37.3; O2SAT 99
--- NOTE | 2018-07-06 21:33 | ED.EXTPRO ---
HPI - Extremity Problem <Annabel FountainANNE MARIE-BC - Last Filed: 07/06/18 21:51> General Chief complaint: Extremity Problem,Nontraumatic Stated complaint: L knee pain Time Seen by Provider: 07/06/18 17:41 Source: patient and EMS Mode of arrival: EMS Limitations: no limitations History of Present Illness HPI Narrative: The patient is a 57-year-old male with history of left knee problems of muscle spasm who presents to the department by ambulance. He is a former smoker. He states that his knee locks. He has been to the department several times for similar complaint. He denies trauma. denies any foot or ankle pain. he states that he heard a pop when trying to stand up from the chair. He did not have his knee brace on. He was most recently seen in this facility on 07/03 for the same complaint and was discharged with his knee immobilizer with clear instructions to keep it on. He presents by EMS with his own knee immobilizer from home. Related Data Home Medications Medication Instructions Recorded Confirmed Lantus U-100 Insulin 80 unit SQ BEDTIME #0 03/15/17 06/26/18 Lyrica 225 mg PO BEDTIME #0 03/15/17 06/26/18 aspirin 81 mg PO BEDTIME #0 03/15/17 06/26/18 atorvastatin [Lipitor] 80 mg PO BEDTIME #0 03/15/17 06/26/18 omega 5-wvw-wed-fish oil [Fish Oil] 1,000 mg PO BEDTIME #0 03/15/17 06/26/18 Victoza 2-Raman 1.8 mg SUBCUT BEDTIME 11/15/17 06/26/18 escitalopram oxalate 20 mg PO BEDTIME 11/15/17 06/26/18 pantoprazole 40 mg PO BEDTIME 06/05/18 06/26/18 insulin aspart U-100 [Novolog 60 units SUBCUT TID 06/26/18 06/26/18 Flexpen U-100 Insulin] methocarbamol [Robaxin-750] 750 mg PO BEDTIME 06/26/18 06/26/18 Previous Rx's Medication Instructions Recorded hydrocodone-acetaminophen [Hunt] 1 tab PO Q4H PRN #15 tab 05/03/18 Allergies Allergy/AdvReac Type Severity Reaction Status Date / Time meperidine [MEPERIDINE] Allergy Severe SHORTNESS Verified 06/26/18 15:23 OF BREATH hydroxyzine [HYDROXYZINE] Allergy Mild RASH Verified 06/26/18 15:23 Review of Systems <MARILYN Talley - Last Filed: 07/06/18 21:51> Review of Systems GENERAL: Denies chills, fatigue, malaise, fever, sweats. HEENT: Denies sinus pain, ear pain, sore throat, difficulty swallowing, dizziness. RESPIRATORY: Denies dyspnea, cough, wheezing, hemoptysis, sputum. CARDIOVASCULAR: Denies chest pain, palpitations, orthopnea, edema, GASTROINTESTINAL: Denies nausea, vomiting, abdominal pain, diarrhea, constipation, melena. : Denies dysuria, frequency, incontinence, hematuria, urinary retention. MUSCULOSKELETAL: See HPI SKIN: Denies rash, skin lesions, or other NEUROLOGIC: Denies weakness, headache, numbness, change in speech, confusion, seizures, incoordination. PSYCHIATRIC: No concerning psychosocial issues. 12 point review of systems is negative except for those stated above PFSH <MARILYN Talley - Last Filed: 07/06/18 21:51> Medical History Subluxation of left knee (Acute) Obstructive sleep apnea on CPAP (Chronic) Hypoventilation associated with obesity (Chronic) Morbid obesity due to excess calories (Chronic) Peripheral neuropathy (Chronic) Anxiety (Acute 06/05/18) Coronary artery disease (Acute) Depression (Acute) Diabetes (Acute) Hx of myocardial infarction (Acute) Inpatient management required (Acute) Subluxation of left knee (Acute) Surgical History History of ankle surgery (Acute) History of arthroplasty of left knee (Acute 10/12/10) History of arthroplasty of right knee (Acute ~07/2014) History of cardiac cath (Acute 04/29/17) History of heart artery stent (Acute ~2011) History of total knee arthroplasty (Acute) Hx of appendectomy (Acute) Hx of foot surgery (Acute) Hx of shoulder surgery (Acute) Hx of tonsillectomy (Acute) Status post left foot surgery (Acute) Family History Father No problems noted. Mother No problems noted. Social History household members: spouse Smoking Status: Former smoker alcohol intake: current Family History Father No problems noted. Mother No problems noted. Social History household members: spouse Smoking Status: Former smoker alcohol intake: current Exam <MARILYN Talley - Last Filed: 07/06/18 21:51> Narrative Exam Narrative: GENERAL: This is a well-nourished, well-developed patient, sugar was in the hallway HEAD: Atraumatic. Normocephalic. No temporal or scalp tenderness. EYES: Pupils equal round and reactive. Extraocular motions intact. No scleral icterus. No injection or drainage. NECK: Trachea midline. No JVD or lymphadenopathy. Supple, nontender, no meningeal signs. CARDIOVASCULAR: Regular rate and rhythm RESPIRATORY: No cough. No increased respiratory effort. GASTROINTESTINAL: Abdomen soft, non-tender, nondistended. No hepato-splenomegaly, or palpable masses. No guarding. EXTREMITIES: Left knee and flex position. Positive PMS left foot. Generalized pain to palpation left knee. BACK: Nontender without deformity or crepitance. No flank tenderness. NEURO: AOx3. SKIN: No rash or erythema. Multiple postoperative scars left knee and ankle. Initial Vital Signs Initial Vital Signs: Vital Signs Temperature 98.2 F 07/06/18 16:05 Pulse Rate 99 H 07/06/18 16:05 Respiratory Rate 20 07/06/18 16:05 Blood Pressure 139/80 07/06/18 16:05 <Jamel Carroll DO - Last Filed: 07/07/18 06:42> Initial Vital Signs Initial Vital Signs: Vital Signs Temperature 98.2 F 07/06/18 16:05 Pulse Rate 99 H 07/06/18 16:05 Respiratory Rate 20 07/06/18 16:05 Blood Pressure 139/80 07/06/18 16:05 Procedures <MARILYN Talley - Last Filed: 07/06/18 21:51> Orthopedic Splinting/Casting Injury #1: Side: left Lower Extremity Injury Location: knee Lower Extremity Immobilizer: knee immobilizer Post splinting neuro exam: intact Post splinting vascular exam: intact Placed by: Nursing Course <MARILYN Talley - Last Filed: 07/06/18 21:51> Orders Ordered: Discontinued Medications Hydrocodone Bitart/Acetaminophen (Hunt 5/325) 2 tab PO NOW ONE Stop: 07/06/18 17:47 Last Admin: 07/06/18 18:28 Dose: 2 tab Diazepam (Valium) 10 mg PO NOW ONE Stop: 07/06/18 19:27 Last Admin: 07/06/18 19:33 Dose: 10 mg Vital Signs - 8 hr 07/06/18 16:05 07/06/18 21:15 Temperature 98.2 F 99.2 F Pulse Rate 99 H 97 H Respiratory Rate 20 19 Blood Pressure 139/80 133/86 Pulse Oximetry 99 <Jamel Carroll DO - Last Filed: 07/07/18 06:42> Orders Ordered: Discontinued Medications Hydrocodone Bitart/Acetaminophen (Hunt 5/325) 2 tab PO NOW ONE Stop: 07/06/18 17:47 Last Admin: 07/06/18 18:28 Dose: 2 tab Diazepam (Valium) 10 mg PO NOW ONE Stop: 07/06/18 19:27 Last Admin: 07/06/18 19:33 Dose: 10 mg Vital Signs - 8 hr 07/06/18 16:05 07/06/18 21:15 Temperature 98.2 F 99.2 F Pulse Rate 99 H 97 H Respiratory Rate 20 19 Blood Pressure 139/80 133/86 Pulse Oximetry 99 MDM - Extremity (Nontraumatic) <MARILYN Talley - Last Filed: 07/06/18 21:51> Imaging Data left knee x-ray: Radiologist's impression: [address] [address] XRay Report Signed Patient: Jamir Garcia KMR#: [id number] : 9Acct:[id number] Age/Sex: 57 / MDate of Service: 07/06/18 Loc: ED Accession Number: [id number] Procedure: XR knee LT 3V Ordering Provider: Annabel Fountain-BC PROCEDURE: XR KNEE LT 3V INDICATIONS: knee pain, unable to bear weight, felt a pop TECHNIQUE: 3 views of the knee were acquired. COMPARISON: 06/26/18. FINDINGS: Bones: There are stable postoperative changes from left total knee arthroplasty. Surgical hardware appears intact and stable in position. The knee remains in flexion. No acute fractures or dislocations. No suspicious bony lesions. Soft tissues: No substantial joint effusion. No suspicious soft tissue calcifications. IMPRESSION: Status post left total knee arthroplasty without evidence for acute fracture or acute hardware complication. Dictated by: Gabriel Moreland M.D. on 07/06/2018 at 19:21 Approved by: Gabriel Moreland M.D. on 07/06/2018 at 19:23 MDM Narrative Medical decision making narrative: The patient is a 57-year-old male well known to this department who presents with a chief complaint of left knee being stuck in flexed position. X-ray shows no acute fracture etiology. The patient was medicated with Hunt as well as Valium p.o. manual traction was applied to the patient's left lower leg, with Candace MCKEON as caustics loader. The patient tolerated the procedure well and his leg was straightened over approximately 5 minutes. Patient was immediately placed into a knee immobilizer. Discussed at length that he needs to follow up with primary care provider as well as his orthopedist. Discussed keeping the knee immobilizer on and treating it as a cast. Discharge Plan Departure Patient Disposition: Home Clinical Impression: Muscle spasm Discharge Date/Time: 07/06/18 21:18 Interventions: ED Discharge Assessment Last Done: 07/06/18 21:15 Instructions: DI for Knee Pain, DI for Muscle Spasm Activity Restrictions/Additional Instructions: Please use rest ice compression elevation. Please do not take off her knee immobilizer. Treat it like a cast. Please follow up with primary care provider as well as her orthopedist. Come back to emergency department for any acute concerns such as chest pain shortness of breath etc. Prescriptions: No Action atorvastatin [Lipitor] 80 MG tablet 80 mg PO BEDTIME Qty: 0 RF: 0 Lyrica 225 MG capsule 225 mg PO BEDTIME Qty: 0 RF: 0 aspirin 81 MG tablet,delayed release (DR/EC) 81 mg PO BEDTIME Qty: 0 RF: 0 omega 0-ryh-mjx-fish oil [Fish Oil] 1,000 MG capsule 1,000 mg PO BEDTIME Qty: 0 RF: 0 Lantus U-100 Insulin 100 UNIT/1 ML solution 80 unit SQ BEDTIME Qty: 0 RF: 0 escitalopram oxalate 20 mg tablet 20 mg PO BEDTIME RF: 0 Victoza 2-Raman 0.6 mg/0.1 mL (18 mg/3 mL) Pen Injector 1.8 mg SUBCUT BEDTIME RF: 0 Novolog Flexpen U-100 Insulin 100 unit/mL Insulin Pen 60 units subcut TID RF: 0 methocarbamol [Robaxin-750] 750 mg tablet 750 mg PO BEDTIME RF: 0 hydrocodone-acetaminophen [Hunt] 5-325 mg tablet 1 tab PO Q4H PRN (Reason: pain) Qty: 15 RF: 0 pantoprazole 40 mg Tablet,Delayed Release (Dr/Ec) 40 mg PO BEDTIME RF: 0 <Jamel Carroll DO - Last Filed: 07/07/18 06:42> Cosign ED Attending Wesleyature Attestation: I was immediately available in the department for consultation. Documentation has been reviewed. I agree with assessment and plan.
--- NOTE | 2018-07-06 21:51 | ED_ITS ---
HPI - Extremity Problem <Annabel FountainANNE MARIE-BC - Last Filed: 07/06/18 21:51> General Chief complaint: Extremity Problem,Nontraumatic Stated complaint: L knee pain Time Seen by Provider: 07/06/18 17:41 Source: patient and EMS Mode of arrival: EMS Limitations: no limitations History of Present Illness HPI Narrative: The patient is a 57-year-old male with history of left knee problems of muscle spasm who presents to the department by ambulance. He is a former smoker. He states that his knee locks. He has been to the department several times for similar complaint. He denies trauma. denies any foot or ankle pain. he states that he heard a pop when trying to stand up from the chair. He did not have his knee brace on. He was most recently seen in this facility on 07/03 for the same complaint and was discharged with his knee immobilizer with clear instructions to keep it on. He presents by EMS with his own knee immobilizer from home. Related Data Home Medications Medication Instructions Recorded Confirmed Lantus U-100 Insulin 80 unit SQ BEDTIME #0 03/15/17 06/26/18 Lyrica 225 mg PO BEDTIME #0 03/15/17 06/26/18 aspirin 81 mg PO BEDTIME #0 03/15/17 06/26/18 atorvastatin [Lipitor] 80 mg PO BEDTIME #0 03/15/17 06/26/18 omega 6-kjx-jbn-fish oil [Fish Oil] 1,000 mg PO BEDTIME #0 03/15/17 06/26/18 Victoza 2-Raman 1.8 mg SUBCUT BEDTIME 11/15/17 06/26/18 escitalopram oxalate 20 mg PO BEDTIME 11/15/17 06/26/18 pantoprazole 40 mg PO BEDTIME 06/05/18 06/26/18 insulin aspart U-100 [Novolog 60 units SUBCUT TID 06/26/18 06/26/18 Flexpen U-100 Insulin] methocarbamol [Robaxin-750] 750 mg PO BEDTIME 06/26/18 06/26/18 Previous Rx's Medication Instructions Recorded hydrocodone-acetaminophen [Risco] 1 tab PO Q4H PRN #15 tab 05/03/18 Allergies Allergy/AdvReac Type Severity Reaction Status Date / Time meperidine [MEPERIDINE] Allergy Severe SHORTNESS Verified 06/26/18 15:23 OF BREATH hydroxyzine [HYDROXYZINE] Allergy Mild RASH Verified 06/26/18 15:23 Review of Systems <MARILYN Talley - Last Filed: 07/06/18 21:51> Review of Systems GENERAL: Denies chills, fatigue, malaise, fever, sweats. HEENT: Denies sinus pain, ear pain, sore throat, difficulty swallowing, dizziness. RESPIRATORY: Denies dyspnea, cough, wheezing, hemoptysis, sputum. CARDIOVASCULAR: Denies chest pain, palpitations, orthopnea, edema, GASTROINTESTINAL: Denies nausea, vomiting, abdominal pain, diarrhea, constipation, melena. : Denies dysuria, frequency, incontinence, hematuria, urinary retention. MUSCULOSKELETAL: See HPI SKIN: Denies rash, skin lesions, or other NEUROLOGIC: Denies weakness, headache, numbness, change in speech, confusion, seizures, incoordination. PSYCHIATRIC: No concerning psychosocial issues. 12 point review of systems is negative except for those stated above PFSH <MARILYN Talley - Last Filed: 07/06/18 21:51> Medical History Subluxation of left knee (Acute) Obstructive sleep apnea on CPAP (Chronic) Hypoventilation associated with obesity (Chronic) Morbid obesity due to excess calories (Chronic) Peripheral neuropathy (Chronic) Anxiety (Acute 06/05/18) Coronary artery disease (Acute) Depression (Acute) Diabetes (Acute) Hx of myocardial infarction (Acute) Inpatient management required (Acute) Subluxation of left knee (Acute) Surgical History History of ankle surgery (Acute) History of arthroplasty of left knee (Acute 10/12/10) History of arthroplasty of right knee (Acute ~07/2014) History of cardiac cath (Acute 04/29/17) History of heart artery stent (Acute ~2011) History of total knee arthroplasty (Acute) Hx of appendectomy (Acute) Hx of foot surgery (Acute) Hx of shoulder surgery (Acute) Hx of tonsillectomy (Acute) Status post left foot surgery (Acute) Family History Father No problems noted. Mother No problems noted. Social History household members: spouse Smoking Status: Former smoker alcohol intake: current Family History Father No problems noted. Mother No problems noted. Social History household members: spouse Smoking Status: Former smoker alcohol intake: current Exam <MARILYN Talley - Last Filed: 07/06/18 21:51> Narrative Exam Narrative: GENERAL: This is a well-nourished, well-developed patient, sugar was in the hallway HEAD: Atraumatic. Normocephalic. No temporal or scalp tenderness. EYES: Pupils equal round and reactive. Extraocular motions intact. No scleral icterus. No injection or drainage. NECK: Trachea midline. No JVD or lymphadenopathy. Supple, nontender, no meningeal signs. CARDIOVASCULAR: Regular rate and rhythm RESPIRATORY: No cough. No increased respiratory effort. GASTROINTESTINAL: Abdomen soft, non-tender, nondistended. No hepato-splenomega ly, or palpable masses. No guarding. EXTREMITIES: Left knee and flex position. Positive PMS left foot. Generalized pain to palpation left knee. BACK: Nontender without deformity or crepitance. No flank tenderness. NEURO: AOx3. SKIN: No rash or erythema. Multiple postoperative scars left knee and ankle. Initial Vital Signs Initial Vital Signs: Vital Signs Temperature 98.2 F 07/06/18 16:05 Pulse Rate 99 H 07/06/18 16:05 Respiratory Rate 20 07/06/18 16:05 Blood Pressure 139/80 07/06/18 16:05 <Jamel Carroll DO - Last Filed: 07/07/18 06:42> Initial Vital Signs Initial Vital Signs: Vital Signs Temperature 98.2 F 07/06/18 16:05 Pulse Rate 99 H 07/06/18 16:05 Respiratory Rate 20 07/06/18 16:05 Blood Pressure 139/80 07/06/18 16:05 Procedures <MARILYN Talley - Last Filed: 07/06/18 21:51> Orthopedic Splinting/Casting Injury #1: Side: left Lower Extremity Injury Location: knee Lower Extremity Immobilizer: knee immobilizer Post splinting neuro exam: intact Post splinting vascular exam: intact Placed by: Nursing Course <MARILYN Talley - Last Filed: 07/06/18 21:51> Orders Ordered: Discontinued Medications Hydrocodone Bitart/Acetaminophen (Risco 5/325) 2 tab PO NOW ONE Stop: 07/06/18 17:47 Last Admin: 07/06/18 18:28 Dose: 2 tab Diazepam (Valium) 10 mg PO NOW ONE Stop: 07/06/18 19:27 Last Admin: 07/06/18 19:33 Dose: 10 mg Vital Signs - 8 hr 07/06/18 16:05 07/06/18 21:15 Temperature 98.2 F 99.2 F Pulse Rate 99 H 97 H Respiratory Rate 20 19 Blood Pressure 139/80 133/86 Pulse Oximetry 99 <Jamel Carroll DO - Last Filed: 07/07/18 06:42> Orders Ordered: Discontinued Medications Hydrocodone Bitart/Acetaminophen (Risco 5/325) 2 tab PO NOW ONE Stop: 07/06/18 17:47 Last Admin: 07/06/18 18:28 Dose: 2 tab Diazepam (Valium) 10 mg PO NOW ONE Stop: 07/06/18 19:27 Last Admin: 07/06/18 19:33 Dose: 10 mg Vital Signs - 8 hr 07/06/18 16:05 07/06/18 21:15 Temperature 98.2 F 99.2 F Pulse Rate 99 H 97 H Respiratory Rate 20 19 Blood Pressure 139/80 133/86 Pulse Oximetry 99 MDM - Extremity (Nontraumatic) <MARILYN Talley - Last Filed: 07/06/18 21:51> Imaging Data left knee x-ray: Radiologist's impression: [address] [address] XRay Report Signed Patient: Jamir Garcia KMR#: [id number] : 9Acct:[id number] Age/Sex: 57 / MDate of Service: 07/06/18 Loc: ED Accession Number: [id number] Procedure: XR knee LT 3V Ordering Provider: Annabel FountainBC PROCEDURE: XR KNEE LT 3V INDICATIONS: knee pain, unable to bear weight, felt a pop TECHNIQUE: 3 views of the knee were acquired. COMPARISON: 06/26/18. FINDINGS: Bones: There are stable postoperative changes from left total knee arthroplasty. Surgical hardware appears intact and stable in position. The knee remains in flexion. No acute fractures or dislocations. No suspicious bony lesions. Soft tissues: No substantial joint effusion. No suspicious soft tissue calcifications. IMPRESSION: Status post left total knee arthroplasty without evidence for acute fracture or acute hardware complication. Dictated by: Gabriel Moreland M.D. on 07/06/2018 at 19:21 Approved by: Gabriel Moreland M.D. on 07/06/2018 at 19:23 MDM Narrative Medical decision making narrative: The patient is a 57-year-old male well known to this department who presents with a chief complaint of left knee being stuck in flexed position. X-ray shows no acute fracture etiology. The patient was medicated with Risco as well as Valium p.o. manual traction was applied to the patient's left lower leg, with Candace MCKEON as assembler body. The patient tolerated the procedure well and his leg was straightened over approximately 5 minutes. Patient was immediately placed into a knee immobilizer. Discussed at length that he needs to follow up with primary care provider as well as his orthopedist. Discussed keeping the knee immobilizer on and treating it as a cast. Discharge Plan Departure Patient Disposition: Home Clinical Impression: Muscle spasm Discharge Date/Time: 07/06/18 21:18 Interventions: ED Discharge Assessment Last Done: 07/06/18 21:15 Instructions: DI for Knee Pain, DI for Muscle Spasm Activity Restrictions/Additional Instructions: Please use rest ice compression elevation. Please do not take off her knee immobilizer. Treat it like a cast. Please follow up with primary care provider as well as her orthopedist. Come back to emergency department for any acute concerns such as chest pain shortness of breath etc. Prescriptions: No Action atorvastatin [Lipitor] 80 MG tablet 80 mg PO BEDTIME Qty: 0 RF: 0 Lyrica 225 MG capsule 225 mg PO BEDTIME Qty: 0 RF: 0 aspirin 81 MG tablet,delayed release (DR/EC) 81 mg PO BEDTIME Qty: 0 RF: 0 omega 2-evx-trt-fish oil [Fish Oil] 1,000 MG capsule 1,000 mg PO BEDTIME Qty: 0 RF: 0 Lantus U-100 Insulin 100 UNIT/1 ML solution 80 unit SQ BEDTIME Qty: 0 RF: 0 escitalopram oxalate 20 mg tablet 20 mg PO BEDTIME RF: 0 Victoza 2-Raman 0.6 mg/0.1 mL (18 mg/3 mL) Pen Injector 1.8 mg SUBCUT BEDTIME RF: 0 Novolog Flexpen U-100 Insulin 100 unit/mL Insulin Pen 60 units subcut TID RF: 0 methocarbamol [Robaxin-750] 750 mg tablet 750 mg PO BEDTIME RF: 0 hydrocodone-acetaminophen [Risco] 5-325 mg tablet 1 tab PO Q4H PRN (Reason: pain) Qty: 15 RF: 0 pantoprazole 40 mg Tablet,Delayed Release (Dr/Ec) 40 mg PO BEDTIME RF: 0 <Jamel Carroll DO - Last Filed: 07/07/18 06:42> Cosign ED Attending Wesleyature Attestation: I was immediately available in the department for consultation. Documentation has been reviewed. I agree with assessment and plan.
== END 2018-07-06 21:18 | disposition home or self-care (01) ==
PROVIDERS: Emergency Provider Nurse Practitioner Family
DX: M62.838 Other muscle spasm (principal); M25.562 Pain in left knee
CPT/HCPCS: 73562; 99282; 99283

== ENCOUNTER 2018-07-21 06:31 | Inpatient (IN) | payer MEDICARE, OTHER, SELFPAY ==
[2018-06-05 01:35] VITALS: BMI 42.0
[2018-06-06 07:56] VITALS: BMI 40.8
[2018-07-21] VITALS (16 sets, daily range): BP systolic 84–125; BP diastolic 55–75; PULSE 81–96; RESP 8–90; TEMP 36.3–37.2; O2SAT 93–99; BMI 42.7
--- NOTE | 2018-07-21 06:00 | DI.RAD.S_ITS ---
PROCEDURE: XR KNEE LT 1TO2V INDICATIONS: prosthesis placement TECHNIQUE: 2 view(s) of the knee acquired. COMPARISON: [facility], CR, XR KNEE LT 1TO2V, 04/24/2018, 19:44. [facility], CR, XR KNEE LT 1TO2V, 05/03/2018, 17:53. [facility], CR, XR KNEE LT 3V, 05/28/2018, 16:44. [facility], CR, XR KNEE LT 3V, 07/06/2018, 16:16. [facility], CR, XR KNEE LT 3V, 06/04/2018, 21:30. [facility], CR, XR KNEE LT 1TO2V, 06/26/2018, 16:20. FINDINGS: Bones: Patient is status post revision knee joint arthroplasty. Hardware components are in expected positions. Visualized bony structures are intact. Soft tissues: Overlying postoperative changes are noted. IMPRESSION: Expected post surgical changes. Dictated by: Donnie Crane M.D. on 07/21/2018 at 9:48 Approved by: Donnie Crane M.D. on 07/21/2018 at 9:53
[2018-07-21] MEDS: PREGABALIN 75 MG CAPSULE PO (07:05)
[2018-07-21] MEDS: ACETAMINOPHEN 325 MG TABLET 975 MG PO ×3 (07:05→20:41)
[2018-07-21] MEDS: CELECOXIB 200 MG CAPSULE PO (07:06)
[2018-07-21] MEDS: LACTATED RINGERS 1,000 ML 42 ML IV ×2 (07:16→09:31)
[2018-07-21] MEDS: VANCOMYCIN 1,000 MG/200 ML FROZ.PIGGY 200 MG IV (07:17)
--- NOTE | 2018-07-21 07:41 | PM.PREOP ---
Pre-operative Note Interval Note History & Physical reviewed/Exam performed by Physician: Yes Changes to H&P: No H&P completed within 30 days and has changed as indicated here:: no er visits for 2 weeks.
--- NOTE | 2018-07-21 07:43 | P.OP_ITS ---
Operative Date/Time/Diagnoses Date of procedure: 07/21/18 Time of procedure: 07:58 Pre-op diagnosis: right knee locking after right total knee arthroplasty Post-op diagnosis: same Procedure & Clinicians Procedure: Revision left knee 1 component Same procedure as scheduled: Yes Indications: The patient has had progressively worsening left knee pain with radiographic changes consistent with arthritis. Non-operative management has failed and the patient has requested revision total knee replacement. The risks, benefits and alternatives to surgery were discussed with the patient prior to proceeding. Risks discussed included, but were not limited to, failure to relieve pain, stiffness, infection, nerve damage, deep venous thrombosis, pulm onary embolism, stroke, coma, heart attack, permanent paralysis and , as well as the potential need for possible repeat revision of the prosthetic. Surgeon: Keyana Castillo Carton Gluing Machine Operator: Liv Contreras Anesthesia Type: General and Spinal Operative Notes Findings: Mild polyethylene wear, no evidence of post fatigue or breaking Closure Type: primary Specimen(s): none sent Prosthetic devices, grafts, tissues, transplants, or devices: Castillo and Nephew legion size 11 posterior stabilized articular inset size 5-6 Estimated Blood Loss (mL): 100 Blood products transfused: none Procedure in detail: Patient was brought to the operating room. Patient's left lower extremities prepped draped in standard sterile fashion. Time-out was performed. Antibiotics were given. Patient's previous midline incision was used dissection was carried out through skin and subcutaneous tissues. Gelpi retractors were placed. Medial parapatellar arthrotomy was performed. Cultures were sent of both the fluid as well as some of the synovium and tissue in the notch and underneath polyethylene tray. Dissection was carried out down to the joint line. Portion of the synovium was removed there was a tight patellofemoral joint but only mild to moderate tissue noted in the gutters bilaterally. Portion of the synovium was resected and sized specifically it was freed in order to allow removal of the polyethylene component. I did a range of motion check as well as the stability tack and specifically looked underneath the patellar component as the patient was having problems with locking in high flexion. Some scar and soft tissue as well as hypertrophied synovium was resected circumferentially from around the patella. The patellar component was checked and noted to be stable. It was tracking well. The patient did have a tendency towards both hyper extension as well as global laxity in extension at 45? and at 90?. He had about 1-2 mm of additional mobility in high flexion but there was not a gross mismatch of the flexion extension space. After adequate soft tissue stripping had been performed the polyethylene was removed. I did use an oscillating saw to remove the peg and then the component was removed without difficulty. I did a trial reduction with an 11 poly both the high flexion option as well as posterior stabilized insert set. He did not have medial to lateral instability and I did not feel that a constrained polyethylene was the best poly selection. With a 11 mm poly posterior stabilized with excellent range of motion 0-130 degrees he was stable at 0 45 and 90? and there was good tracking of the patella. In high flexion I could not get him to posteriorly sublux or lock. Trial component was removed and meticulously irrigated the knee with normal saline. The final polyethylene was placed. Range of motion showed excellent range of motion. Tourniquet was deflated and hemostasis was achieved. The wound was closed with interrupted Vicryl tory stitches and skin harlan. An Aquacel was applied. The wound was dressed sterilely. Complications none. Complications: none Condition: stable Disposition: Acute Care Plan for aftercare: The patient will be maintained on a standard total knee replacement protocol with weight bearing as tolerated. The patient will receive aspirin and sequential compression devices for DVT prophylaxis. The patient will be discharged home when safe for the home environment.
[2018-07-21] MEDS: CEFAZOLIN VIAL 3 GM in SODIUM CHLORIDE 0.9% 100 ML 200 ML IV ×2 (08:00→16:08)
--- NOTE | 2018-07-21 08:29 | SUR.OPER ---
Supine on padded OR bed. Pillow under head, arms secured on padded armboards <90 degree abduction. Safety belt across torso. Non-operative leg secured with tape over blanket over lower leg. Operative leg secured in DeMayo/José Luis positioner. Foam padded brace at thigh of operative leg.
[2018-07-21] MEDS: TRANEXAMIC ACID 1,000 MG VIAL 1000 MG INJ (08:45)
[2018-07-21] MEDS: BUPIVACAINE LIPOSOME 266 MG/20 ML VIAL INJ (08:45)
[2018-07-21] MEDS: BUPIVACAINE 0.25% W/ EPI 30 ML VIAL 60 ML INJ (09:03)
[2018-07-21] MEDS: POVIDONE-IODINE 15 ML, SODIUM CHLORIDE 0.9% 250 ML TOP (09:04)
--- NOTE | 2018-07-21 10:24 | SUR.PHASEI ---
REPORT CALLED TO LINDA FINCH ON ACUTE CARE FLOOR. PT IN STABLE CONDITION, VSS. PT RESTING IN BED WITH EYES CLOSED, EASILY AROUSABLE TO VOICE WHEN SPOKEN TO. DRSG OBSERVED TO BE C/D/I.
--- NOTE | 2018-07-21 10:38 | SUR.PHASEI ---
PT TRANSFERRED TO ACUTE CARE FLOOR IN STABLE CONDITION. PT ALERT AND TALKING TO RN DURING TRANSPORT. BEDSIDE REPORT GIVEN TO LINDA FINCH UPON ARRIVAL TO ROOM. TRANSFERRED CARE OF PT TO LINDA FINCH AT THAT TIME.
--- NOTE | 2018-07-21 12:11 | CM.DANOTE ---
DCP: Case received, EMR reviewed and checked on patient. He was sleeping at the time. Obtained information regarding patient from spouse, Riya, over the phone. Updated white board in his room. DCP template updated based on current information available. Patient is a 57 year old male who admitted early this morning to the care of the surgical team. PCP: Dr. Gaviria. Payer: confirmed: Medicare/[employer]. Patient came to hospital for surgical procedure. He had R. Total Knee Arthroplasty revision. Patient was sleeping and on oxygen, for he just came back from surgery. Called his , Riya, for information on how he was doing before the surgery. She stated that they have been walking every day. She mentioned that they do have some stairs to go up to get into the main level of the home. She stated that she purchased him a walker for tall people. P: DCP to continue to follow closely. Will collaborate with physical therapy team if any resources may be needed at discharge. Angelita Maurer RN/student financial aid manager
[2018-07-21] MEDS: OXYCODONE IR 5 MG TABLET PO ×4 (12:18→22:25)
[2018-07-21] MEDS: LACTATED RINGERS 1,000 ML 125 ML IV ×2 (12:19→20:41)
[2018-07-21] MEDS: INSULIN ASPART 100 UNIT/ML INSULN PEN 60 UNIT SUBCUT ×2 (12:22→16:49)
--- NOTE | 2018-07-21 14:45 | PT.IIE ---
Current Diagnoses Morbid (severe) obesity due to excess calories (07/21/18) Obstructive sleep apnea (adult) (pediatric) (07/21/18) Pain in left knee (07/21/18) Broken internal joint prosthesis, other site, initial encounter (07/21/18) Presence of left artificial knee joint (07/21/18) Dependence on other enabling machines and devices (07/21/18) Surgery Performed Operation Date: 06/09/18 07:45 <No data on this case meets the specified criteria> Operation Date: 07/21/18 07:45 Actual Procedures p Total Knee Arthroplasty Revision with replacement of PS articular insert (Left) - Keyana Castillo MD Surgical History (Last Updated 07/08/18 @ 13:42 by Vickie Gaffney RN) History of ankle surgery (Acute) History of arthroplasty of left knee (Acute 10/12/10) History of arthroplasty of right knee (Acute ~07/2014) History of cardiac cath (Acute 04/29/17) Hx of appendectomy (Acute) Hx of foot surgery (Acute) Hx of shoulder surgery (Acute) Hx of tonsillectomy (Acute) History of heart artery stent (Acute ~2011) Status post left foot surgery (Acute) Medical History (Last Updated 07/08/18 @ 13:43 by Vickie Gaffney RN) Obstructive sleep apnea on CPAP (Chronic) Hypoventilation associated with obesity (Chronic) Morbid obesity due to excess calories (Chronic) Peripheral neuropathy (Chronic) Anxiety (Acute 06/05/18) Depression (Acute) Prinzmetal angina (Acute) Subluxation of left knee (Acute) Ulcer of great toe (Acute) Coronary artery disease (Acute) Diabetes (Acute) Hx of myocardial infarction (Acute ~2011) Inpatient management required (Acute) Physical Therapy Inpatient Evaluation/Re-Eval M1 PT/OT-IP Prior Functional Status Start: 07/21/18 14:03 Freq: NEEDED Status: Active Protocol: Document 07/21/18 14:45 RS (Rec: 07/22/18 08:20 RS [id number]) Medical Review Prior Functional Status Medical History Reviewed Yes Diet/Fluid Consistency Regular Communication no known deficits Mobility and Gait ind without AD, no falls Activities of Daily Living and IADL's helps occassionally with LB dressing otherwise ind Prior Functional Level (Other details) 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, no physical assist needed M2 PT-IP Current Condition Start: 07/21/18 14:03 Freq: NEEDED Status: Active Protocol: Document 07/21/18 15:54 RS (Rec: 07/21/18 15:55 RS [email or web address]) Physical Therapy Current Condition Current Condition Evaluation Date 07/21/18 Treatment Diagnosis L TKA revision Onset Date 07/21/18 Weight Bearing Status Weight Bearing Status Weight Bear as Tolerated M3 PT-IP Subjective Start: 07/21/18 14:03 Freq: NEEDED Status: Active Protocol: Document 07/21/18 15:54 RS (Rec: 07/21/18 15:55 RS [email or web address]) Subjective Physical Therapy Visit Type Type Initial Evaluation Visit Start Time 13:30 Visit Stop Time 14:45 Total Visit Minutes 75 M4 PT-IP Mobility and Gait Start: 07/21/18 14:03 Freq: NEEDED Status: Active Protocol: Document 07/21/18 14:45 RS (Rec: 07/22/18 08:20 RS [id number]) PT-Bed Mobility Assessment Supine to Sit Supine to Sit Standby Assistance Sit to Supine Sit to Supine Standby Assistance Scooting Scooting to Edge of Bed Standby Assistance Scooting Up and Down in Bed Standby Assistance PT-Transfer Assessment Sit to and From Stand Sit to and from Stand Contact Guard Assistance Equipment Transfer Assistive Device Gait Belt Front Wheeled Walker Transfers Transfer Destination Bed Transfer Technique walked Transfer Ability Level of Assist Standby Assistance Comments Mobility Comments Pt able to get up to EOB without difficulty, but needs verbal cues for hand placement /technique to stand up. Pt tended to keep both hands on walker and really brace lower legs in contact with EOB to leverage himself up. However due to pt's strength/size he ultimately just kept pushing the bed backwards despite it being locked. Once cued to push up from the bed with at least one hand he was better able to shift weight forward over feet and push up to standing slowly. Gait Assessment Gait Gait Assistance Required: Standby Assistance Distance (Feet) 140 Assistive Devices Assistive Device Gait Belt Front Wheeled Walker Gait Deviations General Gait Pattern Antalgic Factors Limiting Gait Function Factors Limiting Gait Function Limited Range of Motion Comments Gait Comments Pt relatively steady on feet once he gets going, needs cues to allow the L knee to bend during gait cycle as initially he kept it fully extended throughout. Pt able to do this to a slight degree but needs more repetition with ideal gait cycle. Able to walk the 140ft with several standing rest breaks. Stair Climbing Assessment Comments Stair Climbing Comments not yet tested PT-Balance Assessment Sitting Balance and Reactions Static Sitting Balance Ability Normal Dynamic Sitting Balance Ability Good Standing Balance and Reactions Static Standing Balance Ability Good Dynamic Standing Balance Ability Good Device Used FWW M5 PT-IP Objective Assessments Start: 07/21/18 14:03 Freq: NEEDED Status: Active Protocol: Document 07/21/18 14:45 RS (Rec: 07/22/18 08:20 [id number]) Orientation Orientation/Cognition Level of Alertness Alert Orientation Name Age Birthday Month Date Year Day of Week Place Situation Language Function Ability No Deficits Noted Safety Awareness Understands Safety Issues Memory Description No Deficits Noted Gross Range of Motion Upper Extremity ROM Assessment Within Functional Limits Lower Extremity ROM Assessment Left Impaired Strength Upper Extremity Strength Assessment Within Functional Limits Lower Extremity Strength Assessment Left Impaired Comments Strength Comments normal post surgical weakness in LLE Sensation Assessment Sensation Gross Sensation Right LE Impaired Left LE Impaired Light Touch Impaired Proprioception (Position) Impaired Sensation Description Numbness Comments Sensation Comments severe BLE neuropathy M6 PT-IP Treatment Start: 07/21/18 14:03 Freq: NEEDED Status: Active Protocol: Document 07/21/18 14:45 RS (Rec: 07/22/18 08:20 [id number]) Physical Therapy Treatment Exercises Exercises Ankle Pumps Gluteal Sets Quad Sets Heel Slides Straight Leg Raises Supine Hip Abduction Short Arc Quads Passive Knee Extension Hang Seated Knee Flexion/Extension Education Education Provided Precautions Weight Bearing Status Post-Op Packet Safety M7 PT-IP Assessment and Plan Start: 07/21/18 14:03 Freq: NEEDED Status: Active Protocol: Document 07/21/18 15:54 RS (Rec: 07/21/18 15:54 RS [id number]) PT Summary Assessment and Plan Potential Rehabilitation Potential Good Status of Condition at Evaluation Evolving Frequency of Treatment Frequency Of Treatment Twice a Day Recommendations To Nursing Amount of Assist Needed 1 Person Assist Discharge Recommendations PT Discharge Recommendations Home with Assistance Outpatient PT
[2018-07-21] MEDS: ATORVASTATIN 20 MG TABLET 80 MG PO (20:41)
[2018-07-21] MEDS: DOCUSATE 100 MG CAPSULE PO (20:42)
[2018-07-21] MEDS: ESCITALOPRAM 10 MG TABLET 20 MG PO (20:42)
[2018-07-21] MEDS: ASPIRIN EC 81 MG TABLET PO (20:42)
[2018-07-21] MEDS: INSULIN GLARGINE 100 UNIT/ML 10ML VIAL 80 UNIT SUBCUT (20:48)
[2018-07-21] MEDS: PREGABALIN 75 MG CAPSULE 225 MG PO (20:48)
[2018-07-21] MEDS: INSULIN GLARGINE 100 UNIT/ML 3ML PEN 80 UNIT SUBCUT (20:50)
--- NOTE | 2018-07-21 23:28 | PC.NURSE ---
BLADDER SCAN >999ML. UPDATED NEW ORDER TO IN AND OUT CATH. COMPLETED WITH A TOTAL OF 1600MLS OUT. ICE PACKS REPLACED TO LEFT KNEE
[2018-07-22] VITALS (8 sets, daily range): BP systolic 113–141; BP diastolic 59–78; PULSE 65–99; RESP 16–20; TEMP 36.3–37.5; O2SAT 91–95
[2018-07-22] MEDS: CEFAZOLIN VIAL 3 GM in SODIUM CHLORIDE 0.9% 100 ML 200 ML IV (00:12)
[2018-07-22] MEDS: OXYCODONE IR 5 MG TABLET PO ×3 (00:34→08:22)
--- NOTE | 2018-07-22 03:22 | PC.NURSE ---
Addendum entered and electronically signed by Samuel Jay R.N. 07/22/18 07:26: At 0650 Pt was bladder scanned and showed greater than 950cc of urine. Straight cath was inserted and 1900cc of urine obtained. Pt tolerated well. He still isn't feeling sensation to urinate. Original Note: Pt is pleasant and talkative. Pain level has been high 7-8/10, and he has baseline bilateral lower extremity numbness and LL Edema due to Neuropathy and Diabetes. Pt's lung sounds are clear, and VSS. Pt not willing to wear SCD's but has been educated about foot waves and movement. Was up walking w/ evening shift. Pt's wears home CPAP for sleep. Pt was not passing urine for evening shift and was straight cathed at 2330 w/ output of 1600, will continue to monitor for the night. 0300 BG was 123.
[2018-07-22 05:40] LABS: Hemoglobin 14.8 g/dL (13.5-17.5)
[2018-07-22] MEDS: ACETAMINOPHEN 325 MG TABLET 975 MG PO ×3 (08:21→19:53)
[2018-07-22] MEDS: PREGABALIN 75 MG CAPSULE 225 MG PO ×2 (08:21→20:30)
[2018-07-22] MEDS: DOCUSATE 100 MG CAPSULE PO ×2 (08:22→19:55)
[2018-07-22] MEDS: INSULIN ASPART 100 UNIT/ML INSULN PEN 60 UNIT SUBCUT ×3 (08:22→18:20)
[2018-07-22] MEDS: ASPIRIN EC 81 MG TABLET PO ×2 (08:22→19:54)
--- NOTE | 2018-07-22 09:30 | P.PN_ITS ---
Subjective Date Patient Seen: 07/22/18 Time Patient Seen: 09:24 Interval history: Patient is a 57 year old male who is POD#1 s/p revision of right total knee arthroplasty. He reports significant pain that has been partially relieved with oxycodone. He has mobilized within the room with no i ssue. He has not been able to void and has been straight cathed twice since surgery. He is tolerating a diet. Exam Vital Signs (past 8 hours): - 07/22/18 03:46 07/22/18 07:25 Temperature 97.3 F L 99.5 F Pulse Rate 98 H 98 H Respiratory Rate 18 18 Blood Pressure 128/78 121/67 Pulse Oximetry 92 91 Oxygen Delivery Method CPAP Oxygen Flow Rate 0 Narrative Exam Narrative: 57 year old male resting in bed. Alert and oriented in no acute distress. Dressing in place over right knee is saturated. Dressing removed to reveal small area of very slow drainage at the proximal end of the incision. Decreased sensation in stocking distribution consistent with preop exam. Vascularly intact. Calves are soft and nontender bilaterally. Objective Labs Result Diagrams: 07/22/18 05:20 Labs: Laboratory Results - last 24 hr 07/22/18 05:20 Hgb 14.8 Hct 44.0 Assessment & Plan Post-op Postoperative Procedures Operation Date: 06/09/18 07:45 <No data on this case meets the specified criteria> Operation Date: 07/21/18 07:45 Actual Procedures Side Surgeon p Total Knee Arthroplasty Revision with replacement of PS articular insert Left Keyana Castillo MD Patient experiencing urinary retention post operatively, if he continues to fail to void today will insert hugo. Continue pain management with the addition of oxycodone 10mg Q3hrs for severe pain. Dressing changed, will monitor for continued drainage but seems to be controlled. Continue to mobilize with PT today. Quality VTE Deep Vein Thrombosis/Pulmonary Embolism Present on Admission: No
[2018-07-22] MEDS: OXYCODONE IR 10 MG TABLET PO ×5 (09:50→23:46)
--- NOTE | 2018-07-22 11:02 | PC.NURSE ---
Day Shift pt was having difficulty urinating, bladder scanned this AM for 240 ml. Notified PA and will recheck in 1 hr. Checked again and was 350. Pt wanted to try urinating one additional time. HONEY PRODUCER stood pt up and took to bathroom. He then sat on the toilet and was able to urinate 1L. PVR was 144. Will continue to encourage pt to get out of bed to urinate and check PVR. Pt states pain was not controlled with 5mg oxy (given at 0820). PA ordered 10 mg oxy, spoke with her as pt requesting addtional pain meds, ok with PA to start pt on 10 mg oxy at 0950. pt sleeping after admin of 10 mg.
--- NOTE | 2018-07-22 12:07 | PT.IPTN ---
Current Diagnoses Morbid (severe) obesity due to excess calories (07/21/18) Obstructive sleep apnea (adult) (pediatric) (07/21/18) Pain in left knee (07/21/18) Broken internal joint prosthesis, other site, initial encounter (07/21/18) Presence of left artificial knee joint (07/21/18) Dependence on other enabling machines and devices (07/21/18) Surgery Performed Operation Date: 06/09/18 07:45 <No data on this case meets the specified criteria> Operation Date: 07/21/18 07:45 Actual Procedures p Total Knee Arthroplasty Revision with replacement of PS articular insert (Left) - Keyana Castillo MD Physical Therapy Treatment Note M2 PT-IP Current Condition Start: 07/21/18 14:03 Freq: NEEDED Status: Active Protocol: Document 07/21/18 15:54 RS (Rec: 07/21/18 15:55 RS [id number]) Physical Therapy Current Condition Current Condition Evaluation Date 07/21/18 Treatment Diagnosis L TKA revision Onset Date 07/21/18 Weight Bearing Status Weight Bearing Status Weight Bear as Tolerated M3 PT-IP Subjective Start: 07/21/18 14:03 Freq: NEEDED Status: Active Protocol: Document 07/22/18 11:20 CLB (Rec: 07/22/18 12:07 CLB [id number]) Subjective Physical Therapy Visit Type Type Treatment Note Visit Start Time 11:20 Visit Stop Time 11:45 Total Visit Minutes 25 Number of WOOL CARDER Visits 1 Physical Therapy Visit Comments Patient Comments Pt agreeable to do therapy. Therapy Pain Assessment Pain When Pain Assessed During Mobility Pain Present Pain Present Pain Reported Location Left Knee Intensity 8 Scale Used Numeric (1 - 10) Pain Management Techniques Elevation Modification of Treatment Re-positioning Timing of Activity with Medications M4 PT-IP Mobility and Gait Start: 07/21/18 14:03 Freq: NEEDED Status: Active Protocol: Document 07/22/18 11:20 CLB (Rec: 07/22/18 12:07 CLB [id number]) PT-Bed Mobility Assessment Supine to Sit Supine to Sit Standby Assistance Sit to Supine Sit to Supine Standby Assistance Scooting Scooting to Edge of Bed Standby Assistance Scooting Up and Down in Bed Standby Assistance PT-Transfer Assessment Sit to and From Stand Sit to and from Stand Contact Guard Assistance Equipment Transfer Assistive Device Gait Belt Front Wheeled Walker Transfers Transfer Destination Bed Transfer Technique walked Transfer Ability Level of Assist Standby Assistance Comments Mobility Comments Pt is SBA for bed mobility, pt recalled proper hand position for standing but continues to use legs on bed to support standing and required cues for foot placement before standing. Gait Assessment Gait Gait Assistance Required: Standby Assistance Distance (Feet) 80 Assistive Devices Assistive Device Gait Belt Front Wheeled Walker Gait Deviations General Gait Pattern Antalgic Factors Limiting Gait Function Factors Limiting Gait Function Limited Range of Motion Comments Gait Comments Pt required cues for walker/ step sequencing and cues to bend L knee during gait. Pt would benefit from wide walker as he has trouble keeping both feet inside walker. Pt required cues for turns as he would move the walker too far away with a twist at his waist and leave his LLE behind. Stair Climbing Assessment Comments Stair Climbing Comments not yet tested M5 PT-IP Objective Assessments Start: 07/21/18 14:03 Freq: NEEDED Status: Active Protocol: Document 07/21/18 14:45 RS (Rec: 07/22/18 08:20 RS [id number]) Orientation Orientation/Cognition Level of Alertness Alert Orientation Name Age Birthday Month Date Year Day of Week Place Situation Language Function Ability No Deficits Noted Safety Awareness Understands Safety Issues Memory Description No Deficits Noted Gross Range of Motion Upper Extremity ROM Assessment Within Functional Limits Lower Extremity ROM Assessment Left Impaired Strength Upper Extremity Strength Assessment Within Functional Limits Lower Extremity Strength Assessment Left Impaired Comments Strength Comments normal post surgical weakness in LLE Sensation Assessment Sensation Gross Sensation Right LE Impaired Left LE Impaired Light Touch Impaired Proprioception (Position) Impaired Sensation Description Numbness Comments Sensation Comments severe BLE neuropathy M6 PT-IP Treatment Start: 07/21/18 14:03 Freq: NEEDED Status: Active Protocol: Document 07/22/18 11:20 CLB (Rec: 07/22/18 12:07 CLB [id number]) Physical Therapy Treatment Exercises Exercises Ankle Pumps Gluteal Sets Quad Sets Heel Slides Straight Leg Raises Short Arc Quads Passive Knee Extension Hang Education Education Provided Precautions Weight Bearing Status Post-Op Packet Safety M7 PT-IP Assessment and Plan Start: 07/21/18 14:03 Freq: NEEDED Status: Active Protocol: Document 07/22/18 11:20 CLB (Rec: 07/22/18 12:07 CLB [id number]) PT Summary Assessment and Plan Potential Rehabilitation Potential Good Status of Condition at Evaluation Evolving Summary Impairments Pain ROM Strength Transfers Gait Activity Tolerance Assessment Summary Pt was groggy during tx which prevented him from progressing gait distance and quality. Pt is doing well with bed mobility requiring SBA with supine<>sit. Pt stated his pain decreased with movement. Pt would benefit from wide walker as pt had difficulty keeping both feet inside walker. Goals Bed Mobility Goal Independent Transfer Goal Independent Gait Goal Independent Gait Distance 200 Days to Meet Goals 2 Frequency of Treatment Frequency Of Treatment Twice a Day Treatment Plan Other Recommendations and Next Treatment stairs, transfers, confirm he Focus has the exercise packet Recommendations To Nursing Amount of Assist Needed 1 Person Assist Discharge Recommendations PT Discharge Recommendations Home with Assistance Outpatient PT Equipment Needed for Home Before Pt would benefit from wide Discharge walker.
--- NOTE | 2018-07-22 15:20 | PT.IPTN ---
Current Diagnoses Morbid (severe) obesity due to excess calories (07/21/18) Obstructive sleep apnea (adult) (pediatric) (07/21/18) Pain in left knee (07/21/18) Broken internal joint prosthesis, other site, initial encounter (07/21/18) Presence of left artificial knee joint (07/21/18) Dependence on other enabling machines and devices (07/21/18) Surgery Performed Operation Date: 06/09/18 07:45 <No data on this case meets the specified criteria> Operation Date: 07/21/18 07:45 Actual Procedures p Total Knee Arthroplasty Revision with replacement of PS articular insert (Left) - Keyana Castillo MD Physical Therapy Treatment Note M2 PT-IP Current Condition Start: 07/21/18 14:03 Freq: NEEDED Status: Active Protocol: Document 07/21/18 15:54 RS (Rec: 07/21/18 15:55 RS [id number]) Physical Therapy Current Condition Current Condition Evaluation Date 07/21/18 Treatment Diagnosis L TKA revision Onset Date 07/21/18 Weight Bearing Status Weight Bearing Status Weight Bear as Tolerated M3 PT-IP Subjective Start: 07/21/18 14:03 Freq: NEEDED Status: Active Protocol: Document 07/22/18 14:55 CLB (Rec: 07/22/18 16:28 CLB [id number]) Subjective Physical Therapy Visit Type Type Treatment Note Visit Start Time 14:55 Visit Stop Time 15:20 Total Visit Minutes 25 Number of SHIPPING TECHNICIAN Visits 2 Physical Therapy Visit Comments Patient Comments Pt agreeable to do therapy. Therapy Pain Assessment Pain When Pain Assessed During Mobility Pain Present Pain Present Pain Reported Location Left Knee Intensity 8 Scale Used Numeric (1 - 10) Pain Management Techniques Elevation Modification of Treatment Re-positioning Timing of Activity with Medications M4 PT-IP Mobility and Gait Start: 07/21/18 14:03 Freq: NEEDED Status: Active Protocol: Document 07/22/18 14:55 CLB (Rec: 07/22/18 16:28 CLB [id number]) PT-Bed Mobility Assessment Supine to Sit Supine to Sit Standby Assistance Sit to Supine Sit to Supine Standby Assistance Scooting Scooting to Edge of Bed Standby Assistance Scooting Up and Down in Bed Standby Assistance PT-Transfer Assessment Sit to and From Stand Sit to and from Stand Minimal Assistance 1 Person Assistance Use of Upper Extremities Equipment Transfer Assistive Device Gait Belt Front Wheeled Walker Transfers Transfer Destination Bed Toilet Transfer Ability Level of Assist Minimal Assistance 1 Person Assistance Use of Upper Extremities Comments Mobility Comments Pt required Min A from bed to stand but was able to stand SBA from toilet and use of wall rails. Pt able to doff/ arnold underpants and shorts. Pt urinated ~900 cc RN notified. Gait Assessment Gait Gait Assistance Required: Standby Assistance Distance (Feet) 150 Assistive Devices Assistive Device Gait Belt Front Wheeled Walker Gait Deviations General Gait Pattern Antalgic Factors Limiting Gait Function Factors Limiting Gait Function Limited Range of Motion Comments Gait Comments Pt used wide FWW with greater success with ambulation. Pt was able to keep feet inside walker and was able to make turns safely. Pt stated his insurance would not cover a walker and he would use his walker and hopes to progress to a cane soon. Stair Climbing Assessment Comments Stair Climbing Comments not yet tested M5 PT-IP Objective Assessments Start: 07/21/18 14:03 Freq: NEEDED Status: Active Protocol: Document 07/21/18 14:45 RS (Rec: 07/22/18 08:20 RS [id number]) Orientation Orientation/Cognition Level of Alertness Alert Orientation Name Age Birthday Month Date Year Day of Week Place Situation Language Function Ability No Deficits Noted Safety Awareness Understands Safety Issues Memory Description No Deficits Noted Gross Range of Motion Upper Extremity ROM Assessment Within Functional Limits Lower Extremity ROM Assessment Left Impaired Strength Upper Extremity Strength Assessment Within Functional Limits Lower Extremity Strength Assessment Left Impaired Comments Strength Comments normal post surgical weakness in LLE Sensation Assessment Sensation Gross Sensation Right LE Impaired Left LE Impaired Light Touch Impaired Proprioception (Position) Impaired Sensation Description Numbness Comments Sensation Comments severe BLE neuropathy M6 PT-IP Treatment Start: 07/21/18 14:03 Freq: NEEDED Status: Active Protocol: Document 07/22/18 14:55 CLB (Rec: 07/22/18 16:28 CLB [id number]) Physical Therapy Treatment Exercises Exercises Ankle Pumps Gluteal Sets Quad Sets Heel Slides Straight Leg Raises Short Arc Quads Passive Knee Extension Hang Education Education Provided Precautions Weight Bearing Status Post-Op Packet Safety M7 PT-IP Assessment and Plan Start: 07/21/18 14:03 Freq: NEEDED Status: Active Protocol: Document 07/22/18 14:55 CLB (Rec: 07/22/18 16:28 CLB [id number]) PT Summary Assessment and Plan Potential Rehabilitation Potential Good Status of Condition at Evaluation Evolving Summary Impairments Pain ROM Strength Transfers Gait Activity Tolerance Assessment Summary Pt improved with gait ambulating ~150 SBA with wide FWW. Pt required increased assist with sit-stand from bed but able to get up from toilet CGA with use of wall rails. Pt is 's CG and daughter will not be staying to assist him at home. Pt may benefit from HH PT if unable to drive to OP PT appt. Goals Bed Mobility Goal Independent Transfer Goal Independent Gait Goal Independent Days to Meet Goals 2 Frequency of Treatment Frequency Of Treatment Twice a Day Treatment Plan Other Recommendations and Next Treatment stairs, transfers, confirm he Focus has the exercise packet Recommendations To Nursing Amount of Assist Needed 1 Person Assist Discharge Recommendations PT Discharge Recommendations Home with Assistance Home Health Outpatient PT Other Discharge Recommendations Pt is 's CG and daughter will not be staying to assist him at home. Pt may benefit from HH PT if unable to drive to OP PT appt. Equipment Needed for Home Before Pt would benefit from wide Discharge walker.
--- NOTE | 2018-07-22 18:40 | PC.NURSE ---
Addendum entered by Malathi Echols R.N. 07/22/18 21:23: Pt resting quietly at this time. HL intact/patent. Med @ 2000 w/oxycodone for discomfort Cpap in place. HS CBG = 152, Dsg to left knee CDI Call light w/in reach/ bed alarm on for pt safety. Continue as p[er plan of care. Original Note: Pt resting quietly at this time. Med @ 1630 for discomfort w/fair relief. HL in right wrist intact/patent. Dsg to surgical knee CDI. Call light w/in reach, bed alarm on for pt safety.
[2018-07-22] MEDS: ATORVASTATIN 20 MG TABLET 80 MG PO (19:54)
[2018-07-22] MEDS: ESCITALOPRAM 10 MG TABLET 20 MG PO (19:55)
[2018-07-22] MEDS: INSULIN GLARGINE 100 UNIT/ML 3ML PEN 80 UNIT SUBCUT (19:58)
[2018-07-23] MEDS: OXYCODONE IR 10 MG TABLET PO ×4 (03:08→12:14)
[2018-07-23 03:15] VITALS: BP 115/66; PULSE 96; RESP 16; TEMP 36.6; O2SAT 95
[2018-07-23 08:00] VITALS: BP 123/76; PULSE 98; RESP 18; TEMP 37; O2SAT 93
[2018-07-23] MEDS: ASPIRIN EC 81 MG TABLET PO (08:28)
[2018-07-23] MEDS: ACETAMINOPHEN 325 MG TABLET 975 MG PO (08:28)
[2018-07-23] MEDS: DOCUSATE 100 MG CAPSULE PO (08:29)
[2018-07-23] MEDS: PREGABALIN 75 MG CAPSULE 225 MG PO (08:29)
[2018-07-23] MEDS: INSULIN ASPART 100 UNIT/ML INSULN PEN 60 UNIT SUBCUT ×2 (08:34→12:14)
--- NOTE | 2018-07-23 08:51 | PM.DS.1 ---
History of Present Illness Date Patient Seen: 07/23/18 Time Patient Seen: 08:51 Chief complaint: [id number] Total Knee Arhtroplasty revision Narrative: Patient's pain is 7/10. Denies fever chills. No nausea vomiting. Able a ambulate out in [place] yesterday with physical therapy. Patient also able to urinate on his own. Patient's is home and able to assist him when he is discharged. Discharge Providers Date of admission: 07/21/18 06:31 Discharge Date: 07/23/18 Primary care physician: Bertha Gaviria DO Consults: 07/10/18 11:45 Consult to Anesthesiology Routine Comment: Consulting Provider: Anesthesiologist Reason for consultation: Surgeon requested re:Sleep apnea Consult to Respiratory Therapy Evaluate & Treat Comment: Physician Instructions: Evaluate and treat 07/21/18 06:00 Consult to Anesthesiology Routine Comment: Consulting Provider: Anesthesiologist Reason for consultation: Regional block for post operative pain control 07/21/18 07:05 Consult to Respiratory Therapy Evaluate & Treat Comment: Physician Instructions: Evaluate and treat 07/21/18 10:48 Consult to Discharge Planning Routine Comment: Consult to Physical Therapy Evaluate & Treat Comment: Physician Instructions: postop TKA protocol Consult to Respiratory Therapy Evaluate & Treat Comment: Physician Instructions: Evaluate and treat Discharge provider: Toni Andre PA-C Summary Discharge Diagnosis: Status post revision left total knee arthroplasty with poly exchange. Hospital Course: Indications: The patient has had progressively worsening left knee pain with radiographic changes consistent with arthritis. Non-operative management has failed and the patient has requested revision total knee replacement. The risks, benefits and alternatives to surgery were discussed with the patient prior to proceeding. Risks discussed included, but were not limited to, failure to relieve pain, stiffness, infection, nerve damage, deep venous thrombosis, pulmonary embolism, stroke, coma, heart attack, permanent paralysis and , as well as the potential need for possible repeat revision of the prosthetic. Surgeon: Keyana Castillo Casket Assembler Metal: Liv Contreras Anesthesia Type: General and Spinal Operative Notes Findings: Mild polyethylene wear, no evidence of post fatigue or breaking Closure Type: primary Specimen(s): none sent Prosthetic devices, grafts, tissues, transplants, or devices: Castillo and Nephew legion size 11 posterior stabilized articular inset size 5-6 Estimated Blood Loss (mL): 100 Blood products transfused: none Patient is mobilizing with physical therapy. Urinating on his own. is home to assist him. Patient will be discharged home today in stable condition. Status at Discharge Cognitive/behavioral status at discharge: at baseline, oriented Functional status at discharge: uses cane/walker Overall status at discharge: patient is progressing back to baseline Time Spent with Patient Less than 30 minutes Exam Vital Signs (past 8 hours): - 07/23/18 03:15 Temperature 97.8 F Pulse Rate 96 H Respiratory Rate 16 Blood Pressure 115/66 Pulse Oximetry 95 Oxygen Delivery Method Room Air Oxygen Flow Rate 0 Narrative Exam Narrative: 57-year-old male resting in bed having breakfast in no apparent distress. Left knee dressing is clean, dry and intact. Motor function is intact distally. Sensation diminished secondary to diabetic neuropathy. Left leg is warm and dry. Objective Labs Result Diagrams: 07/22/18 05:20 Labs: Fingerstick blood sugar 157 this morning at 3:10 a.m. Discharge Plan Discharge Plan Patient Disposition: Home Discharge comment: DC home Discharge Med Rec/Prescriptions Prescriptions: New acetaminophen 325 mg Tablet 975 mg PO TID Qty: 90 RF: 0 aspirin 81 mg Tablet,Delayed Release (Dr/Ec) 81 mg PO BID Qty: 60 RF: 0 oxycodone 5 mg Tablet 5 mg PO Q3HR PRN (Reason: Pain, Moderate (4-6)) Qty: 60 RF: 0 Continued atorvastatin [Lipitor] 80 MG tablet 80 mg PO BEDTIME Qty: 0 RF: 0 Lyrica 225 MG capsule 225 mg PO BID Qty: 0 RF: 0 omega 1-oqt-mev-fish oil [Fish Oil] 1,000 MG capsule 1,000 mg PO BEDTIME Qty: 0 RF: 0 Lantus U-100 Insulin 100 UNIT/1 ML solution 80 unit SQ BEDTIME Qty: 0 RF: 0 escitalopram oxalate 20 mg tablet 20 mg PO BEDTIME RF: 0 Victoza 2-Raman 0.6 mg/0.1 mL (18 mg/3 mL) Pen Injector 1.8 mg SUBCUT BEDTIME RF: 0 Novolog Flexpen U-100 Insulin 100 unit/mL Insulin Pen 60 units subcut TID RF: 0 Discontinued aspirin 81 MG tablet,delayed release (DR/EC) 81 mg PO BEDTIME Qty: 0 RF: 0 Follow up/Referrals: Bertha Gaviria DO [Primary Care Provider] - Provider Discharge Instructions Diet: Carb-consistent/Diabetic Activity: WBAT Cold/Heat Therapy: Ice as needed Other treatments: Keep dressing clean and dry Skin/Wound/Dressing Care Report to your healthcare provider any signs of infection, such as:: chills, fever, increased pain, unusual drainage and unusual redness Discharge Data Primary Care Provider: Bertha Gaviria Attending Provider: Keyana Castillo Admit Date/Time: 07/21/18 06:31 Quality VTE Deep Vein Thrombosis/Pulmonary Embolism Present on Admission: No
--- NOTE | 2018-07-23 09:07 | CM.DPC ---
DCP: continued: Spoke with ortho SERA Andre who stated pt was ready for a d/c to home and needed transport assist. EMR reviewed and met with pt. Introduced self and role. Pt confirms that he is planning [facility] for home and will be calling them as soon as he finishes his breakfast. He is caregiver for his , will be homebound will recovering and agrees with PT that HH is needed as he will not be able to access OUTPT PT for some time. HH agency choice list: discussed: decision: [facility] (pt has had them before). HH PT/OT order is obtained. Ritika accepts referral for [facility] and expects to have someone to the home by Tuesday 07/25. Face/Face will be completed and faxed along with orders. [facility] has faxed the initial referral packet to [facility]. Pt and LINDA Moffett are updated.
--- NOTE | 2018-07-23 10:35 | PT.IPTN ---
Current Diagnoses Morbid (severe) obesity due to excess calories (07/21/18) Obstructive sleep apnea (adult) (pediatric) (07/21/18) Pain in left knee (07/21/18) Broken internal joint prosthesis, other site, initial encounter (07/21/18) Presence of left artificial knee joint (07/21/18) Dependence on other enabling machines and devices (07/21/18) Surgery Performed Operation Date: 06/09/18 07:45 <No data on this case meets the specified criteria> Operation Date: 07/21/18 07:45 Actual Procedures p Total Knee Arthroplasty Revision with replacement of PS articular insert (Left) - Keyana Castillo MD Physical Therapy Treatment Note M2 PT-IP Current Condition Start: 07/21/18 14:03 Freq: NEEDED Status: Active Protocol: Document 07/21/18 15:54 RS (Rec: 07/21/18 15:55 RS [id number]) Physical Therapy Current Condition Current Condition Evaluation Date 07/21/18 Treatment Diagnosis L TKA revision Onset Date 07/21/18 Weight Bearing Status Weight Bearing Status Weight Bear as Tolerated M3 PT-IP Subjective Start: 07/21/18 14:03 Freq: NEEDED Status: Active Protocol: Document 07/23/18 10:35 GGD (Rec: 07/23/18 12:30 GGD [id number]) Subjective Physical Therapy Visit Type Type Treatment Note Visit Start Time 10:10 Visit Stop Time 10:35 Total Visit Minutes 25 Number of REAR LOAD TRUCK DRIVER Visits 3 Physical Therapy Visit Comments Patient Comments Pt states he is ready to go home. Therapy Pain Assessment Pain When Pain Assessed During Mobility Pain Present Pain Present Pain Reported M4 PT-IP Mobility and Gait Start: 07/21/18 14:03 Freq: NEEDED Status: Active Protocol: Document 07/23/18 10:35 GGD (Rec: 07/23/18 12:30 GGD [id number]) PT-Bed Mobility Assessment Supine to Sit Supine to Sit Standby Assistance Sit to Supine Sit to Supine Standby Assistance Scooting Scooting to Edge of Bed Standby Assistance Scooting Up and Down in Bed Standby Assistance PT-Transfer Assessment Sit to and From Stand Sit to and from Stand Contact Guard Assistance 1 Person Assistance Use of Upper Extremities Equipment Transfer Assistive Device Gait Belt Front Wheeled Walker Transfers Transfer Destination Bed Toilet Transfer Ability Level of Assist Standby Assistance 1 Person Assistance Use of Upper Extremities Gait Assessment Gait Gait Assistance Required: Standby Assistance Distance (Feet) 75 Assistive Devices Assistive Device Gait Belt Front Wheeled Walker Gait Deviations General Gait Pattern Antalgic Factors Limiting Gait Function Factors Limiting Gait Function Decreased Strength Limited Range of Motion Pain Stair Climbing Assessment Comments Stair Climbing Comments Pt refused states he been using stair one step at time and has bilateral rails. M5 PT-IP Objective Assessments Start: 07/21/18 14:03 Freq: NEEDED Status: Active Protocol: Document 07/21/18 14:45 RS (Rec: 07/22/18 08:20 RS [id number]) Orientation Orientation/Cognition Level of Alertness Alert Orientation Name Age Birthday Month Date Year Day of Week Place Situation Language Function Ability No Deficits Noted Safety Awareness Understands Safety Issues Memory Description No Deficits Noted Gross Range of Motion Upper Extremity ROM Assessment Within Functional Limits Lower Extremity ROM Assessment Left Impaired Strength Upper Extremity Strength Assessment Within Functional Limits Lower Extremity Strength Assessment Left Impaired Comments Strength Comments normal post surgical weakness in LLE Sensation Assessment Sensation Gross Sensation Right LE Impaired Left LE Impaired Light Touch Impaired Proprioception (Position) Impaired Sensation Description Numbness Comments Sensation Comments severe BLE neuropathy M6 PT-IP Treatment Start: 07/21/18 14:03 Freq: NEEDED Status: Active Protocol: Document 07/23/18 10:35 GGD (Rec: 07/23/18 12:30 GGD [id number]) Physical Therapy Treatment Exercises Exercises Ankle Pumps Gluteal Sets Quad Sets Heel Slides Straight Leg Raises Short Arc Quads Passive Knee Extension Hang M7 PT-IP Assessment and Plan Start: 07/21/18 14:03 Freq: NEEDED Status: Active Protocol: Document 07/23/18 10:35 GGD (Rec: 07/23/18 12:30 GGD [id number]) PT Summary Assessment and Plan Summary Assessment Summary Pt need cues for safe sit to stand and controlled sit. He was safe with FWW with gait and bed mobility. Frequency of Treatment Frequency Of Treatment Twice a Day Treatment Plan Other Recommendations and Next Treatment stairs, transfers, sit to Focus stand Recommendations To Nursing Amount of Assist Needed 1 Person Assist Discharge Recommendations PT Discharge Recommendations Home with Assistance Home Health
--- NOTE | 2018-07-23 12:34 | PC.NURSE ---
Discharge pt states he took all belongings with him including FWW and CPAP. left with [employer] escort in w/c to [facility] for ride home. Rx were faxed to [facility] per pt request, he took hard copies with him. d/c instructions provided to pt. Aware to contact MD for any additional questions or concerns as well as for f/u apt. pt left around 1235.
== END 2018-07-23 12:35 | disposition home health service (06) | DRG 488 ==
PROVIDERS: Admitting Provider Orthopaedic Surgery; PCP Family Medicine; Visit Provider Orthopaedic Surgery
PROC: 0SPD09Z Removal of Liner from Left Knee Joint, Open Approach (ICD-10-PCS; principal; 2018-07-21 07:45)
DX: T84.063A Wear of articular bearing surface of internal prosthetic left knee joint, initial encounter (principal); I20.1 Angina pectoris with documented spasm; E66.2 Morbid (severe) obesity with alveolar hypoventilation; Z68.41 Body mass index [BMI] 40.0-44.9, adult; G47.33 Obstructive sleep apnea (adult) (pediatric); I10 Essential (primary) hypertension; E78.5 Hyperlipidemia, unspecified; E11.9 Type 2 diabetes mellitus without complications; K21.9 Gastro-esophageal reflux disease without esophagitis; Z87.891 Personal history of nicotine dependence; Z79.4 Long term (current) use of insulin
CPT/HCPCS: 36415; 73560; 82962; 85014; 85018; 87070; 87075; 87205; 94762; 97110; 97116; 97161; 97530; C1776; C9290; J0690; J2250; J2274; J2405; J2704; J3010; J3370

== ENCOUNTER 2018-11-18 06:54 | Emergency (ER) | payer MEDICARE, OTHER, SELFPAY ==
[2018-07-21 13:18] VITALS: BMI 42.7
[2018-11-18 07:00] VITALS: BP 145/85; PULSE 99; RESP 16; TEMP 37.8; O2SAT 95; BMI 39.4
--- NOTE | 2018-11-18 07:09 | ED.EXTPRO ---
HPI - Extremity Problem General Chief complaint: Extremity Problem,Nontraumatic Stated complaint: Rt Knee locking up Time Seen by Provider: 11/18/18 07:09 Source: patient and EMS Mode of arrival: EMS Limitations: no limitations History of Present Illness HPI Narrative: This is a 58-year-old male comes to the emergency department with complaint of right knee going out. Patient has been here multiple times for his left knee but not his right. He states he has had 1 prior episode with his right knee in the past he states he had surgery on his left knee and since then has been doing better. Patient states that he was at home when his knee gave out and just bent. And he cannot straighten it out. He states he has a lot of spasm. Patient does not have any new trauma. He denies any other symptoms, no chest pain, shortness of breath no nausea or vomiting no other GI or urinary symptoms. Dr. Keyana Castillo is his orthopedic surgeon, he states his right knee replacement was done in [place], [place]. Patient states he has not had any new medications or new changes to his medications recently. Related Data Home Medications Medication Instructions Recorded Confirmed Lantus U-100 Insulin 80 unit SQ BEDTIME #0 03/15/17 07/21/18 Lyrica 225 mg PO BID #0 03/15/17 07/21/18 atorvastatin [Lipitor] 80 mg PO BEDTIME #0 03/15/17 07/21/18 omega 6-caq-ygy-fish oil [Fish Oil] 1,000 mg PO BEDTIME #0 03/15/17 07/21/18 Victoza 2-Raman 1.8 mg SUBCUT BEDTIME 11/15/17 07/21/18 escitalopram oxalate 20 mg PO BEDTIME 11/15/17 07/21/18 Novolog Flexpen U-100 Insulin 60 units SUBCUT TID 06/26/18 07/21/18 metoprolol succinate [Toprol XL] 12.5 mg PO DAILY 11/18/18 11/18/18 Previous Rx's Medication Instructions Recorded acetaminophen 975 mg PO TID #90 tab 07/23/18 aspirin 81 mg PO BID #60 tab 07/23/18 oxycodone 5 mg PO Q3HR PRN #60 tab 07/23/18 Allergies Allergy/AdvReac Type Severity Reaction Status Date / Time meperidine [MEPERIDINE] Allergy Severe SHORTNESS Verified 07/21/18 06:52 OF BREATH, I shut down hydroxyzine [HYDROXYZINE] Allergy Mild RASH - Pt Verified 07/21/18 06:52 uknown how severe Review of Systems Review of Systems ROS Unobtainable: All systems reviewed & are unremarkable except as noted in HPI and below Constitutional Constitutional: Denies chills, Denies fever(s), Denies lethargy and Denies weakness Cardiovascular Cardiovascular: Denies chest pain, Denies syncope, Denies irregular heart rhythm, Denies lightheadedness, Denies palpitations, Denies dyspnea, Denies dyspnea on exertion and Denies orthopnea Respiratory Respiratory: Denies dyspnea and Denies dyspnea on exertion Gastrointestinal Gastrointestinal: Denies abdominal pain, Denies change in bowel habits, Denies constipation, Denies diarrhea, Denies nausea and Denies vomiting Genitourinary Genitourinary: Denies hematuria, Denies difficulty urinating, Denies urinary frequency and Denies urinary urgency Musculoskeletal Musculoskeletal: Reports as per HPI, Reports abnormal gait, Denies back pain, Reports arthralgias, Denies joint swelling, Reports limited range of motion, Denies muscle weakness, Reports numbness (Chronic neuropathy in his foot), Reports stiffness and Denies tingling Integumentary/Breasts Skin/Breast: Denies erythema and Denies rash Neurologic Neurologic: Reports abnormal gait, Denies syncope, Reports numbness (Chronic neuropathy in his foot), Denies tingling and Denies weakness Endocrine Endocrine: Denies palpitations [facility] Medical History Anxiety (Acute 06/05/18) Coronary artery disease (Acute) Depression (Acute) Diabetes (Acute) Hx of myocardial infarction (Acute ~2011) Hypoventilation associated with obesity (Chronic) Inpatient management required (Acute) Morbid obesity due to excess calories (Chronic) Obstructive sleep apnea on CPAP (Chronic) Peripheral neuropathy (Chronic) Prinzmetal angina (Acute) Subluxation of left knee (Acute) Ulcer of great toe (Acute) Surgical History History of ankle surgery (Acute) History of arthroplasty of left knee (Acute 10/12/10) History of arthroplasty of right knee (Acute ~07/2014) History of cardiac cath (Acute 04/29/17) History of heart artery stent (Acute ~2011) Hx of appendectomy (Acute) Hx of foot surgery (Acute) Hx of shoulder surgery (Acute) Hx of tonsillectomy (Acute) Status post left foot surgery (Acute) Family History Father No problems noted. Mother No problems noted. Social History household members: spouse Smoking Status: Former smoker alcohol intake: current Social History household members: spouse Smoking Status: Former smoker alcohol intake: current Exam Narrative Exam Narrative: GENERAL: Alert and oriented x three, obese, well-appearing male in [id number] distress. HEENT: Head normocephalic, atraumatic, EOMI, pupils reactive, face symmetric, moist mucous membranes NECK: Supple, full range of motion CARDIOVASCULAR: Regular rate and rhythm without murmurs, rubs or gallops. RESPIRATORY: Breath sounds equal bilaterally, no wheezes rales or rhonchi. ABDOMEN: Soft, nontender. Normoactive bowel sounds all 4 quadrants. No guarding or rebound, rigidity, no mass : No CVA tenderness EXTREMITIES: Patient's right knee is held in a flexed position. He has pain with any attempt to straighten. On palpation there is no obvious deformity. There is some mild bony tenderness. There is an incision consistent with prior right knee arthroplasty, no clubbing or edema. Vascularly intact. Patient states he does not feel light touch to his foot but that this is not new for him secondary to his chronic diabetic neuropathy. Patient has normal range of motion of his toes and foot. He has no pain in his right hip. He is able to move the leg itself without much issue. NEUROLOGICAL: Cranial nerves II through XII grossly intact. Moving all extremities SKIN: Warm, dry, no petechiae, no rashes or lesions. Initial Vital Signs Initial Vital Signs: Vital Signs Temperature 100.1 F H 11/18/18 07:00 Pulse Rate 99 H 11/18/18 07:00 Respiratory Rate 16 11/18/18 07:00 Blood Pressure 145/85 H 11/18/18 07:00 Pulse Oximetry 95 11/18/18 07:00 Course Orders Ordered: Discontinued Medications Diazepam (Valium) 5 mg PO NOW ONE Stop: 11/18/18 07:39 Last Admin: 11/18/18 08:04 Dose: 5 mg Documented by: YUNIOR Diazepam (Valium) 5 mg IM NOW ONE Stop: 11/18/18 08:45 Last Admin: 11/18/18 09:34 Dose: 5 mg Documented by: ART Hydromorphone HCl (Dilaudid) 2 mg IM NOW ONE Stop: 11/18/18 07:38 Last Admin: 11/18/18 08:04 Dose: 2 mg Documented by: YUNIOR Vital Signs Vital signs: Vital Signs - 8 hr 11/18/18 07:00 11/18/18 09:12 11/18/18 10:34 Temperature 100.1 F H Pulse Rate 99 H 97 H 97 H Respiratory Rate 16 18 16 Blood Pressure 145/85 H Blood Pressure [Right Arm] 157/82 H 130/103 H Pulse Oximetry 95 97 97 MDM - Extremity (Nontraumatic) MDM Narrative Medical decision making narrative: Patient had Dilaudid 2 mg IM as well as some Valium p.o.. He was still quite tight and spasming, we did 1 additional dose of Valium IM and patient over time able to straighten his leg. Knee immobilizer was placed and. Was able to ambulate in the department. Discharge Plan Departure Patient Disposition: Home Clinical Impression: Muscle spasm of right lower extremity Discharge Date/Time: 11/18/18 10:56 Instructions: How to Use a Knee Immobilizer Activity Restrictions/Additional Instructions: Follow up with Dr. Castillo your orthopedic surgeon. Continue home medications as prescribed. If you have recurrent episodes you can use warm heat to the area, massage and allowed time to allow the area to relax and straighten back out. Return to the emergency department for fevers greater than 100.4 F, new weakness, numbness, loss of sensation, inability to use her leg or other new or concerning symptoms. Prescriptions: No Action atorvastatin [Lipitor] 80 MG tablet 80 mg PO BEDTIME Qty: 0 RF: 0 Lyrica 225 MG capsule 225 mg PO BID Qty: 0 RF: 0 omega 1-sae-eih-fish oil [Fish Oil] 1,000 MG capsule 1,000 mg PO BEDTIME Qty: 0 RF: 0 Lantus U-100 Insulin 100 UNIT/1 ML solution 80 unit SQ BEDTIME Qty: 0 RF: 0 escitalopram oxalate 20 mg tablet 20 mg PO BEDTIME RF: 0 Victoza 2-Raman 0.6 mg/0.1 mL (18 mg/3 mL) Pen Injector 1.8 mg SUBCUT BEDTIME RF: 0 Novolog Flexpen U-100 Insulin 100 unit/mL Insulin Pen 60 units subcut TID RF: 0 acetaminophen 325 mg Tablet 975 mg PO TID Qty: 90 RF: 0 aspirin 81 mg Tablet,Delayed Release (Dr/Ec) 81 mg PO BID Qty: 60 RF: 0 oxycodone 5 mg Tablet 5 mg PO Q3HR PRN (Reason: Pain, Moderate (4-6)) Qty: 60 RF: 0 metoprolol succinate [Toprol XL] 25 mg tablet extended release 24 hr 12.5 mg PO DAILY RF: 0 Referrals: Bertha Gaviria DO [Primary Care Provider] - Keyana Castillo MD [Physician] -
--- NOTE | 2018-11-18 07:24 | DI.RAD.S_ITS ---
PROCEDURE: XR KNEE RT 1TO2V INDICATIONS: right knee pain TECHNIQUE: 2 views of the knee were acquired. COMPARISON: [facility], CR, XR KNEE RT 1TO2V, 06/05/2018, 11:35. [facility], CR, XR KNEE LT 1TO2V, 07/21/2018, 10:00. [facility], CR, XR KNEE LT 3V, 07/06/2018, 16:16. FINDINGS: Bones: No fractures or dislocations. No suspicious bony lesions. Prior right total knee arthroplasty shows no evidence of device loosening or disruption. Soft tissues: No joint effusion. No suspicious soft tissue calcifications. IMPRESSION: Expected postoperative appearance after right total knee arthroplasty, equivalent to the appearance from 06/05/18. Dictated by: Randall Pineda M.D. on 11/18/2018 at 8:19 Approved by: Randall Pineda M.D. on 11/18/2018 at 8:21
[2018-11-18] MEDS: HYDROMORPHONE 1 MG INJ 2 MG IM (08:04)
[2018-11-18] MEDS: diazePAM 5 MG TABLET PO (08:04)
[2018-11-18 09:12] VITALS: BP 157/82; PULSE 97; RESP 18; O2SAT 97
[2018-11-18] MEDS: diazePAM 10 MG/2 ML SYRINGE 5 MG IM (09:34)
[2018-11-18 10:34] VITALS: BP 130/103; PULSE 97; RESP 16; O2SAT 97
--- NOTE | 2018-11-18 10:56 | PC.NURSE ---
knee immobilizer place to right knee.
== END 2018-11-18 10:56 | disposition home or self-care (01) ==
PROVIDERS: Emergency Provider Emergency Medicine; PCP Family Medicine
DX: M62.838 Other muscle spasm (principal)
CPT/HCPCS: 73560; 96372; 99283; J1170; J3360